=== PATIENT | female | born 1960 | race Two or more races ===

== ENCOUNTER 2018-11-30 13:27 | Inpatient (IN) | payer OTHER ==
[2018-11-30 14:00] VITALS: BMI 36.0
--- NOTE | 2018-11-30 14:08 | PDOC ---
Attending Attestation - HPI HPI: 11/30/18 14:35 58 year old female with past medical history of CHF, epilepsy, prominent psychiatric history, narcotic and benzodiazepine abuse, on methadone (last treated today) who was brought in by ambulance after being found lethargic by family. After her treatment at the methadone clinic, patient supposedly bought unspecified benzodiazepine on the street. Patient was being prescribed benzos by a psychiatrist but her prescription was recently discontinued. Denies any difficulty breathing, loss of consciousness, chest pain, syncope, nausea, vomiting, diarrhea, fever or chills. In the ED, patient is arousable and is requesting detox. She is maintaining airway. - Physicial Exam PE: 11/30/18 14:45 Vitals: Triage Vital signs reviewed General Appearance: no acute distress, lethargic, arousable to pain Head: Atraumatic, normocephalic Neck: Supple;No Nuchal rigidity Cardiac: Regular rate and rhythm, no murmurs, no rubs, no gallops, Lungs: Clear to auscultation bilateral, good air movement bilaterally, Abdomen: Soft, nondistended, normal bowel sounds, nontender to palpation Extremities: Full range of motion to all extremities, no cyanosis, clubbing, or edema Skin: Warm and dry, no rashes or lesions, no petechiae Neuro: Cranial Nerves 2-12 grossly intact, moving all extremities Psych: normal mood, normal affect - Medical Decision Making 11/30/18 14:35 Documentation prepared by Lianne Mi, acting as medical pathology teacher for Jose Francisco Charles MD. <Lianne Mi - Last Filed: 11/30/18 14:44> - Resident Resident Name: Jose Graham - ED Attending Attestation I have performed the following: I have examined & evaluated the patient, The case was reviewed & discussed with the resident, I agree w/resident's findings & plan, Exceptions are as noted - Medical Decision Making 11/30/18 16:34 History and exam consistent with polypharmacy secondary to street use of benzodiazepine. Patient is arousable on examination her head CT is unremarkable her laboratory analysis is notable for thrombocytopenia which appears to be chronic in comparison to previous blood work. She has a arranged at [facility] when she is medically clear and has metabolize appropriately she can be transferred to [facility] care she was also provided with hematology follow-up for further management of her thrombocytopenia. Dr. Reed to reasses patient <Jose Francisco Charles - Last Filed: 11/30/18 16:35>
--- NOTE | 2018-11-30 14:25 | PDOC ---
History of Present Illness - General Chief Complaint: Overdose Stated Complaint: OVERDOSE Time Seen by Provider: 11/30/18 13:46 History Source: Patient, Spouse Exam Limitations: Intoxication - History of Present Illness Initial Comments: Patient is a 58 y/o F w/ PMHx substance abuse disorder, heart failure, epilepsy , psychiatric issues, BIBEMS after being found lethargic. Takes methadone as part of a program, had been receiving benzodiazepenes from a psychiatrist but recently had benzodiazepene prescription discontinued d/t dangerous combination use. Per , attended methadone program this morning and received normal 80mg dose. Some time after, purchased street benzodiazepenes of unknown type and dosage, then passed out and became difficult to arouse when call was placed to EMS. On presentation, vitals are stable, maintaining airway, maintaining normal respiratory rate, maintaining saturation. No signs or report of trauma. Unable to verbalize any complaints. 11/30/18 14:19 Past History - Travel Traveled outside of the country in the last 30 days: No Close contact w/someone who was outside of country & ill: No - Past Medical History Allergies/Adverse Reactions: Allergies Allergy/AdvReac Type Severity Reaction Status Date / Time No Known Allergies Allergy Verified 05/15/13 18:53 Home Medications: Ambulatory Orders Aspirin 81 mg PO DAILY 05/15/13 Insulin Regular, Human [Humulin R -] 8 units SQ DAILY 05/15/13 Furosemide [Lasix] 40 mg PO DAILY 11/30/18 Gabapentin 300 mg PO BID 11/30/18 Levetiracetam 500 mg PO BID 11/30/18 Methadone [Dolophine -] 80 mg PO DAILY 11/30/18 Quetiapine Fumarate [Seroquel] 100 mg PO DAILY 11/30/18 Rifaximin [Xifaxan] 550 mg PO BID 11/30/18 Spironolactone 50 mg PO DAILY 11/30/18 Asthma: Yes Cardiac Disorders: No COPD: No Diabetes: Yes GI Disorders: No Disorders: No HTN: Yes Kidney Stones: No Seizures: Yes - Surgical History Abdominal Surgery: No Appendectomy: No Cardiac Surgery: No Cholecystectomy: No Lung Surgery: No Neurologic Surgery: No Orthopedic Surgery: No - Reproductive History PID: No - Suicide/Smoking/Psychosocial Hx Smoking History: Current some day smoker Have you smoked in the past 12 months: Yes Number of Cigarettes Smoked Daily: 2 Information on smoking cessation initiated: No Hx Alcohol Use: No Drug/Substance Use Hx: Yes (benzo on methadone program) Hx Substance Use Treatment: Yes ([facility]) Review of Systems - Review of Systems Comments:: As per HPI. 11/30/18 14:25 *Physical Exam - Vital Signs Last Vital Signs Temp Pulse Resp BP Pulse Ox 98.1 F 65 18 101/77 100 11/30/18 13:42 11/30/18 13:42 11/30/18 13:42 11/30/18 13:42 11/30/18 13:42 - Physical Exam Comments: Gen: Lethargic, oriented only to name, transiently arousable to noxious stimuli HEENT: NC/AT, PERRLA, pupils of normal size, MMM Neck: supple, no LAD, no JVD CV: RRR no m/r/g Resp: limited compliance with exam, no adventitious sounds appreciated Abd: +bs, soft, NT, ND Ext: 2+ pulses, wwp Neuro: limited exam, squeezes fingers and plantarflexes with 5/5 strength b/l Skin: warm, dry, normal turgor 11/30/18 14:25 Moderate Sedation - Procedure Monitoring Vital Signs: Procedure Monitoring Vital Signs Temperature 98.1 F 11/30/18 13:42 Pulse Rate 65 11/30/18 13:42 Respiratory Rate 18 11/30/18 13:42 Blood Pressure 101/77 11/30/18 13:42 O2 Sat by Pulse Oximetry (%) 100 11/30/18 13:42 ED Treatment Course - LABORATORY CBC & Chemistry Diagram: 11/30/18 14:30 11/30/18 14:30 - RADIOLOGY Radiology Studies Ordered: Category Date Time Status HEAD CT WITHOUT CONTRAST [CT] Stat CT Scan 11/30/18 14:14 Ordered Medical Decision Making - Medical Decision Making Most likely diagnosis is polypharmacy. Will r/o dangerous etiologies including hypoglycemia, intracranial hemorrhage, metabolic derangement with CBC, CMP, Mg, Phos, NCHCT, FSG. Otherwise will observe. 11/30/18 14:29 states she wishes for admission to detox at [facility]. Will contact [facility] to check for available beds. 11/30/18 14:31 Platelets are 35. H/H stable, no signs/symptoms of bleeding. When patient awakes , will discuss heme followup and provide referral upon discharge. 11/30/18 15:24 HCT without acute pathology. reports the Pt was previously a heavy drinker and has been diagnosed with cirrhosis. 11/30/18 16:59 Patient wheezing, ordered duoneb and CXR. Concern for possible aspiration PNA. However she is metabolizing appropriately and is more awake/alert than on presentation. 11/30/18 18:02 Observed pt attempting to eat. Was dribbling food, could not swallow properly. Will wait for further improvement in alertness to re-attempt feed. 11/30/18 20:34 Attempted ambulation. Patient was unsteady on feet, continues to be below mental baseline. Not medically cleared for discharge. Will admit to med/surg. 11/30/18 21:16 CXR will not be read until AM. Will give Unasyn for empiric coverage for aspiration. 11/30/18 21:33 *DC/Admit/Observation/Transfer Diagnosis at time of Disposition: Polypharmacy - Discharge Dispostion Condition at time of disposition: Guarded Decision to Admit order: Yes - Referrals Referrals: Phillip Canela MD [Staff Physician] - - Patient Instructions - Post Discharge Activity
[2018-11-30 14:43] LABS: BASO % 0.3 % (0-2.0); EOS % 6.8 % (0-4.5); HEMATOCRIT 35.1 % (32.4-45.2); LYMPH % 28.3 % (8-40); MCH 29.3 pg (25.7-33.7); MCHC 34.2 g/dl (32.0-36.0); MEAN CELL VOLUME 85.6 fl (80-96); NEUT % 52.6 % (42.8-82.8); RDW 15.1 % (11.6-15.6); WHITE BLOOD COUNT 4.6 K/mm3 (4.0-10.0)
[2018-11-30 15:17] LABS: ALBUMIN 3.4 g/dl (3.4-5.0); ALK PHOS 77 U/L (45-117); ANION GAP 6 MMOL/L (8-16); BILIRUBIN,TOTAL 1.1 mg/dL (0.2-1); BLOOD UREA NITROGEN 17 mg/dL (7-18); CALCIUM 8.7 mg/dL (8.5-10.1); CHLORIDE 104 mmol/L (98-107); CO2 29 mmol/L (21-32); CREATININE 0.8 mg/dL (0.55-1.3); GLUCOSE,RANDOM 78 mg/dL (74-106); MAGNESIUM 2.2 mg/dL (1.8-2.4); POTASSIUM 4.5 mmol/L (3.5-5.1); SGOT/AST 30 U/L (15-37); SGPT/ALT 23 U/L (13-61); SODIUM 139 mmol/L (136-145); TOT PROT 7.3 g/dl (6.4-8.2)
[2018-11-30 15:19] LABS: MEAN PLT VOLUME 10.8 fl (7.5-11.1)
[2018-11-30 15:20] LABS: PLATELET COUNT 35 K/MM3 (134-434)
[2018-11-30] MEDS ORDERED: ALBUTEROL SO4 2.5/IPRATROPIUM 0.5 INH SOL 3 ML VIAL.NEB. NEB ONE (16:50)
[2018-11-30 17:00] LABS: PLATELET ESTIMATE DECREASED
[2018-11-30] MEDS ORDERED: AMPICILLIN NA/SULBACTAM NA 1.5 GM in SODIUM CHLORIDE 100 ML IVPB ONE (21:32)
--- NOTE | 2018-12-01 00:22 | PN ---
Teaching Attending Note Name of Resident: Yumiko Mckeon ATTENDING PHYSICIAN STATEMENT I saw and evaluated the patient. I reviewed the resident's note and discussed the case with the resident. I agree with the resident's findings and plan as documented. SUBJECTIVE: Patient is a 58 year old woman with PMH of CHF, cirrhosis, epilepsy, prominent psychiatric history, narcotic and benzodiazepine abuse, on methadone (last treated today) who was brought in by ambulance after being found lethargic by family. After her treatment at the methadone clinic, patient supposedly bought unspecified benzodiazepine on the street. Patient was being prescribed benzos by a psychiatrist but her prescription was recently discontinued. Denies any difficulty breathing, loss of consciousness, chest pain, syncope, nausea, vomiting, diarrhea, fever or chills. In the ER, patient is arousable and is requesting detox. She is maintaining airway. OBJECTIVE: Lethargic but arousable Vital Signs Period Temp Pulse Resp BP Sys/Hendrix Pulse Ox Last 24 Hr 98.1 F 65 18 101/77 100 HEENT: No Jaundice, eye redness or discharge, PERRLA, EOMI. Normocephalic, atraumatic. External ears are normal and hearing is grossly intact. No nasal discharge. Neck: Supple, nontender. No palpable adenopathy or thyromegaly. No JVD Chest: Good effort. Clear to auscultation and percussion. Heart: Regular. No S3, rub or murmur Abdomen: Not distended, soft, nontender and no HSM. No rebound or guarding. Normoactive bowel sounds. Ext: Peripheral pulses intact. No leg edema. Skin: Warm and dry. No petechiae, rash or ecchymosis. Neuro: Lethargic. Unable to follow commands. Moves all limbs. Oriented to person. Sensation grossly intact in all four extremities and DTR are symmetric. Home Medications Medication Instructions Recorded Aspirin 81 mg PO DAILY 05/15/13 Insulin Regular, Human [Humulin R 8 units SQ DAILY 05/15/13 -] Furosemide [Lasix] 40 mg PO DAILY 11/30/18 Gabapentin 300 mg PO BID 11/30/18 Levetiracetam 500 mg PO BID 11/30/18 Methadone [Dolophine -] 80 mg PO DAILY 11/30/18 Quetiapine Fumarate [Seroquel] 100 mg PO DAILY 11/30/18 Rifaximin [Xifaxan] 550 mg PO BID 11/30/18 Spironolactone 50 mg PO DAILY 11/30/18 Abnormal Lab Results 11/30/18 11/30/18 14:30 14:30 Plt Count 35 L* D Monocytes % 12.0 H Eosinophils % 6.8 H Anion Gap 6 L Total Bilirubin 1.1 H ASSESSMENT AND PLAN: 1. Drug Overdose - Patient with polysubstance abuse history presenting with lethargy likely due to drug overdose. She is unable to tell us all the drugs she took. She got duoneb for SOB in the ER. Will monitor her closely for respiratory compromise, implement neurochecks, aspiration, seizure and fall precuations. Consult the service desk specialist. Consult Poison control. Will get urine toxicology, monitor EKG in view of prolonged QTc, check Keppra level and get ECHO. Aggressive IV hydration being avoided pending ECHO - in view of CHF history. Repeat CXR for possible emerging RLL infiltrate. There is no indication for antibiotics at this time. Hold methadone and treat constipation. [employer] patient about abstaining from illicit drug use and refer to detox upon discharge. Monitor low platelet count - likely due to cirrhosis. 2. Obesity - Will provide patient all the necessary assistance, counseling and positive reinforcement to facilitate weight loss. Consult fast food shift supervisor. 3. DVT prophylaxis - Early ambulation. Platelets too low for heparin or SCDs 4. Advance directives - Full code
--- NOTE | 2018-12-01 01:07 | HP ---
CHIEF COMPLAINT: benzo OD PCP: none HISTORY OF PRESENT ILLNESS: 58 y/o F with PMH substance use disorder (alcohol, cocaine in past, heroin), ? CHF, epilepsy, cirrhosis, depression, Type 2 DM, who presents to the ED who was BIBEMS for lethargy. As per pt and , pt has been enrolled in a methadone program in [place] for the past 10 years. She has most recently been on 80mg, which she received earlier today at her visit. However, once she was leaving the program in [place], she purchased "a lot of Klonopin" as well as multiple other drugs which she could not name. For this reason, she became increasingly lethargy, passed out and was brought to the [facility] ED via ambulance. On arrival, she was hemodynamically stable and sat well in 90's. During this time, pt endorses generalized GARCIA, SOB which she attributes to her asthma, as well as constipation. Denies fever, chills, chest pain or pressure, or changes in urinary function. Of note, pt was recently told by her psychiatrist to avoid taking methadone and benzo's due to dangerous interaction. She has used "large amounts" of heroin for many years via injection, cocaine, "many other drugs", and has drank a pint of liquor/day for the past five years. Unable to further describe d/t lethargy, does not recall last drink. She lives with her of 5-6 months, and ambulates at baseline using a walker. ER course was notable for: (1) neb x 1 (2) unasyn x 1 (3) Recent Travel: denies PAST MEDICAL HISTORY: as above PAST SURGICAL HISTORY: denies Social History: lives with , has 1 child. ambulates with a walker. has been in a methadone program for 10 yrs Smoking: denies Alcohol: pint of liquor/day for the past five years Drugs: "large amounts" of heroin for many years via injection, cocaine, "many other drugs" Family History: denies Allergies No Known Allergies Allergy (Verified 05/15/13 18:53) haldol listed in paperwork - dysphagia HOME MEDICATIONS: Home Medications Medication Instructions Recorded Aspirin 81 mg PO DAILY 05/15/13 Insulin Regular, Human [Humulin R 8 units SQ DAILY 05/15/13 was not with pt at bedside Furosemide [Lasix] 40 mg PO DAILY 11/30/18 Gabapentin 300 mg PO BID 11/30/18 Levetiracetam 500 mg PO BID 11/30/18 Methadone [Dolophine -] likely gets from program 80 mg PO DAILY 11/30/18 Quetiapine Fumarate [Seroquel] 100 mg PO DAILY 11/30/18 Rifaximin [Xifaxan] 550 mg PO BID 11/30/18 Spironolactone ventolin inhaler PRN lactulose 15 ml solution qd (?) verify 50 mg PO DAILY 11/30/18 REVIEW OF SYSTEMS CONSTITUTIONAL: +lethargy Absent: fever, chills, diaphoresis, generalized weakness, malaise, loss of appetite, weight change HEENT: Absent: rhinorrhea, nasal congestion, throat pain, throat swelling, difficulty swallowing, mouth swelling, ear pain, eye pain, visual changes CARDIOVASCULAR: Absent: chest pain, syncope, palpitations, irregular heart rate, lightheadedness , peripheral edema RESPIRATORY: +SOB Absent: cough, shortness of breath, dyspnea with exertion, orthopnea, wheezing, stridor, hemoptysis GASTROINTESTINAL: +constipation Absent: abdominal pain, abdominal distension, nausea, vomiting, diarrhea, constipation, melena, hematochezia GENITOURINARY: Absent: dysuria, frequency, urgency, hesitancy, hematuria, flank pain, genital pain MUSCULOSKELETAL: Absent: myalgia, arthralgia, joint swelling, back pain, neck pain SKIN: Absent: rash, itching, pallor HEMATOLOGIC/IMMUNOLOGIC: Absent: easy bleeding, easy bruising, lymphadenopathy, frequent infections ENDOCRINE: Absent: unexplained weight gain, unexplained weight loss, heat intolerance, cold intolerance NEUROLOGIC: +GARCIA Absent: headache, focal weakness or paresthesias, dizziness, unsteady gait, seizure, mental status changes, bladder or bowel incontinence PSYCHIATRIC: Absent: anxiety, depression, suicidal or homicidal ideation, hallucinations. PHYSICAL EXAMINATION Vital Signs - 24 hr 11/30/18 13:42 Temperature 98.1 F Pulse Rate 65 Respiratory 18 Rate Blood Pressure 101/77 O2 Sat by Pulse 100 Oximetry (%) GENERAL: Lethargic (AAOx1: self), in no acute distress HEAD: Normal with no signs of trauma. EYES: Pupils equal, round and reactive to light, extraocular movements intact, sclera anicteric, conjunctiva clear. EARS, NOSE, THROAT: Ears normal, nares patent, oropharynx clear without exudates. Moist mucous membranes. NECK: Normal range of motion, supple LUNGS: Breath sounds equal, clear to auscultation bilaterally. No wheezes, and no crackles. No accessory muscle use. however poor inspiratory effort HEART: Regular rate and rhythm, normal S1 and S2 without murmur, rub or gallop. ABDOMEN: Soft, nontender, not distended, normoactive bowel sounds, no guarding, no rebound, no masses. LOWER EXTREMITIES: 2+ pt pulses, warm, well-perfused. No calf tenderness. No peripheral edema. NEUROLOGICAL: would not cooperate PSYCHIATRIC: as above SKIN: Warm, dry Laboratory Results - last 24 hr 11/30/18 11/30/18 14:30 14:30 WBC 4.6 RBC 4.10 Hgb 12.0 Hct 35.1 MCV 85.6 MCH 29.3 MCHC 34.2 RDW 15.1 Plt Count 35 L* D MPV 10.8 D Absolute Neuts (auto) 2.4 Neutrophils % 52.6 Lymphocytes % 28.3 Monocytes % 12.0 H Eosinophils % 6.8 H Basophils % 0.3 Nucleated RBC % 0 Platelet Estimate Decreased Sodium 139 Potassium 4.5 Chloride 104 Carbon Dioxide 29 Anion Gap 6 L BUN 17 Creatinine 0.8 Creat Clearance w eGFR > 60 Random Glucose 78 Calcium 8.7 Phosphorus 4.0 Magnesium 2.2 Total Bilirubin 1.1 H AST 30 ALT 23 Alkaline Phosphatase 77 Total Protein 7.[address]: mild vol loss, no acute changes CXR: hilar congestion, possible cephalization of vessels, without effusions. ? developing infiltrate RLL - my read. await official read. EKG: NSR, rate 70bpm, Qtc 475ms, poor quality. without significant ST-T changes ASSESSMENT/PLAN: 58 y/o F with PMH substance use disorder (alcohol, cocaine in past, heroin), ? CHF, epilepsy, cirrhosis, depression, Type 2 DM, who presents to the ED who was BIBEMS for lethargy. #Lethargy likely 2/2 benzo OD -took methadone 80mg today, as well as klonopin and other possible agents. -d/w poison control. recommends serial EKGs for qtc prolongation, will repeat at 6AM. currently 475ms -f/u utox, acetaminophen level to check for co-ingestions -ABG wnl -hold methadone, seroquel d/t qtc -frequent neuro and respiratory checks q2h. -elevate HOB to prevent aspiration -detox consult: Dr. Resendiz #?CHF -in hx, however pt unable to confirm -c/w lasix, however carefully monitor hemodynamics -f/u ECHO #Possible pneumonitis -may be 2/2 aspiration, however still unclear. possible RLL infiltrate developing -received unasyn in ED. will hold abx for now and reassess w/ repeat CXR in AM -elevate HOB #Cirrhosis 2/2 alcohol abuse -c/w rifaximin, aldactone -started on thiamine, folic -unknown when last drink, monitor for changes in status, CIWA. if needed can start on librium protocol -continue outpt f/u #thrombocytopenia likely 2/2 alcohol abuse -pt with cirrhosis -hold a/c now, continue to monitor #epilepsy -c/w keppra. f/u level -sz precautions #type 2 DM -f/u A1c -ISS, BGM ACHS #F/E/N no IVF, reassess after ECHO done continue to follow lytes NPO, reassess in AM #PPX DVT: SCD's. no a/c at this time d/t thrombocytopenia #Dispo med-surg Visit type - Emergency Visit Emergency Visit: Yes ED Registration Date: 11/30/18 Care time: The patient presented to the Emergency Department on the above date and was hospitalized for further evaluation of their emergent condition. - New Patient This patient is new to me today: Yes Date on this admission: 12/01/18 - Critical Care Critical Care patient: No
[2018-12-01] MEDS ORDERED: ALBUTEROL SO4 0.083% IH SOL 2.5 MG/3 ML VIAL.NEB. NEB PRN (01:14)
[2018-12-01 06:01] LABS: BASO % 0.3 % (0-2.0); HEMATOCRIT 32.8 % (32.4-45.2); HEMOGLOBIN 11.2 GM/dL (10.7-15.3); LYMPH % 32.1 % (8-40); MCH 28.8 pg (25.7-33.7); MEAN CELL VOLUME 84.7 fl (80-96); MEAN PLT VOLUME 11.4 fl (7.5-11.1); MONO % 13.8 % (3.8-10.2); NEUT % 45.8 % (42.8-82.8); PLATELET COUNT 32 K/MM3 (134-434); RBC 3.87 M/mm3 (3.60-5.2); RDW 14.8 % (11.6-15.6); WHITE BLOOD COUNT 3.3 K/mm3 (4.0-10.0)
[2018-12-01 06:18] LABS: ALBUMIN 3.2 g/dl (3.4-5.0); ALK PHOS 71 U/L (45-117); ANION GAP 5 MMOL/L (8-16); BILIRUBIN,TOTAL 0.9 mg/dL (0.2-1); BLOOD UREA NITROGEN 17 mg/dL (7-18); CALCIUM 8.1 mg/dL (8.5-10.1); CHLORIDE 102 mmol/L (98-107); CO2 30 mmol/L (21-32); CREATININE 0.8 mg/dL (0.55-1.3); GLUCOSE,RANDOM 107 mg/dL (74-106); POTASSIUM 3.9 mmol/L (3.5-5.1); SGOT/AST 27 U/L (15-37); SGPT/ALT 20 U/L (13-61); SODIUM 137 mmol/L (136-145); TOT PROT 6.8 g/dl (6.4-8.2)
[2018-12-01 06:20] VITALS: TEMP 98.2
[2018-12-01 06:22] LABS: ARTERIAL BLD GAS O2 SATURATION 96.5 % (90-98.9); ARTERIAL BLOOD GAS BASE EXCESS 2.3 meq/l (-2-2); ARTERIAL BLOOD GAS PCO2 45.1 mmHg (35-45); ARTERIAL BLOOD GAS PO2 90.7 mmHg (80-100)
[2018-12-01 06:45] LABS: MAGNESIUM 1.8 mg/dL (1.8-2.4); PHOSPHOROUS 3.8 mg/dL (2.5-4.9)
[2018-12-01] MEDS: INSULIN SLIDING SCALE (NOVOLOG) 1 VIAL SQ SCH ×2 (08:16→12:05)
[2018-12-01] MEDS ORDERED: FOLIC ACID 5 MG/1 ML SQ SCH (10:00)
[2018-12-01] MEDS ORDERED: FUROSEMIDE 40 MG TABLET (FP) PO SCH ×2 (10:00)
[2018-12-01] MEDS ORDERED: GABAPENTIN 300 MG CAPSULE (FP) PO SCH (10:00)
[2018-12-01] MEDS ORDERED: RIFAXIMIN 550 MG TABLET (UD) PO SCH (10:00)
[2018-12-01] MEDS ORDERED: levETIRAcetam 500 MG TABLET (FP) PO SCH (10:00)
[2018-12-01] MEDS ORDERED: ASPIRIN 81 MG CHEWABLE TABLETS PO SCH (10:00)
[2018-12-01] MEDS ORDERED: THIAMINE HCL 200 MG/2 ML VIAL IVPB SCH (10:00)
[2018-12-01] MEDS ORDERED: SPIRONOLACTONE 25 MG TABLET (FP) PO SCH (10:00)
--- NOTE | 2018-12-01 11:14 | ECHO ---
Version: 1 Name: RAMÓN LI Exam: Adult Echocardiogram Study Date: 12/01/2018, 9:35 AM Age: 58 Years Left Ventricle The left ventricular ejection fraction is normal. Ejection Fraction = 50-55%. Right Ventricle The right ventricle is normal in size and function. Atria The left atrium is mildly dilated. Mitral Valve The mitral valve is normal in structure and function. There is no mitral valve stenosis. There is mi ld mitral regurgitation. Tricuspid Valve The tricuspid valve is not well visualized, but is grossly normal. There is mild tricuspid regurgita tion. Aortic Valve The aortic valve opens well. No hemodynamically significant valvular aortic stenosis. Mild aortic regurgitation. Pulmonic Valve The pulmonic valve is not well seen, but is grossly normal. There is no pulmonic valvular stenosis. Great Vessels The aortic root is normal size. Pericardium/Pleura There is no pericardial effusion. Summary Statements The left ventricular ejection fraction is normal. Ejection Fraction = 50-55%. The left atrium is mildly dilated. There is mild mitral regurgitation. There is mild tricuspid regurgitation. Mild aortic regurgitation. MD Jara *Asuncion 12/01/2018, 11:14 AM Ordering Physician: Yumiko Mckeon Performed By: Mya Arriaga
--- NOTE | 2018-12-01 11:50 | EKG ---
Test Reason : Blood Pressure : / mmHG Vent. Rate : 074 BPM Atrial Rate : 074 BPM P-R Int : 174 ms QRS Dur : 086 ms QT Int : 464 ms P-R-T Axes : 054 003 040 degrees QTc Int : 515 ms NORMAL SINUS RHYTHM POSSIBLE ANTERIOR INFARCT , AGE UNDETERMINED ABNORMAL ECG WHEN COMPARED WITH ECG OF 30-NOV-2018 23:21, NO SIGNIFICANT CHANGE WAS FOUND Confirmed by DEMETRIUS ALEJO, ROEL ([id number]) on 12/01/2018 11:50:02 AM Referred By: Confirmed By:ROEL ROMO MD
--- NOTE | 2018-12-01 11:56 | EKG ---
Test Reason : Blood Pressure : / mmHG Vent. Rate : 070 BPM Atrial Rate : 070 BPM P-R Int : 170 ms QRS Dur : 086 ms QT Int : 440 ms P-R-T Axes : 037 003 012 degrees QTc Int : 475 ms POOR DATA QUALITY, INTERPRETATION MAY BE ADVERSELY AFFECTED NORMAL SINUS RHYTHM NONSPECIFIC T WAVE ABNORMALITY ABNORMAL ECG NO PREVIOUS ECGS AVAILABLE Confirmed by DEMETRIUS ALEJO, ROEL ([id number]) on 12/01/2018 11:55:48 AM Referred By: Confirmed By:ROEL ROMO MD
[2018-12-01] MEDS ORDERED: INSULIN (NOVOLOG) ASPART 100 UNITS/ML 10ML VIAL ONE (12:04)
[2018-12-01] MEDS ORDERED: MAGNESIUM SULF 50% (8.12 MEQ/2 ML-1 GM VIAL) IVPB ONE (12:40)
[2018-12-01] MEDS ORDERED: MAGNESIUM 1GM/D5W - 1 GM/100 ML IVPB IVPB ONE (12:46)
[2018-12-01 14:57] VITALS: BP 121/79; PULSE 105
--- NOTE | 2018-12-01 15:38 | DS ---
Physical Exam: SUBJECTIVE: Patient seen and examined this AM. She states that she is concerned of withdrawing from her methadone if she does not get it soon. OBJECTIVE: Vital Signs Period Temp Pulse Resp BP Sys/Hendrix Pulse Ox Last 24 Hr 98.0 F-98.2 F 68-105 18-18 105-121/72-79 96-100 PHYSICAL EXAM GENERAL: A&O, no acute distress HEAD: Normocephalic, atraumatic. EYES: PERRL, no scleral icterus EARS, NOSE, THROAT: oropharynx clear without exudates. Moist mucous membranes. NECK: supple without lymphadenopathy LUNGS: CTA b/l, no crackles or wheezes HEART: Regular rate and rhythm, normal S1 and S2 without murmur ABDOMEN: Soft, nontender to palpation, normoactive bowel sounds NEURO: slurring speech and drowsy on initial exam but improved later in day EXTREMITIES: warm, well-perfused. No peripheral edema. PSYCHIATRIC: Anxious LABS Laboratory Results - last 24 hr 11/30/18 12/01/18 12/01/18 14:30 05:15 05:15 WBC 3.3 L RBC 3.87 Hgb 11.2 Hct 32.8 MCV 84.7 MCH 28.8 MCHC 34.0 RDW 14.8 Plt Count 32 L* MPV 11.4 H Absolute Neuts (auto) 1.5 Neutrophils % 45.8 Lymphocytes % 32.1 Monocytes % 13.8 H Eosinophils % 8.0 H Basophils % 0.3 Nucleated RBC % 0 Platelet Estimate Decreased Anticoagulation Therapy Puncture Site ABG pH ABG pCO2 at Pt Temp ABG pO2 at Pt Temp ABG HCO3 ABG O2 Sat (Measured) ABG O2 Content ABG Base Excess Cesar Test O2 Delivery Device Oxygen Flow Rate Vent Mode Vent Rate Mechanical Rate Pressure Support Vent Sodium 137 Potassium 3.9 Chloride 102 Carbon Dioxide 30 Anion Gap 5 L BUN 17 Creatinine 0.8 Creat Clearance w eGFR > 60 POC Glucometer Random Glucose 107 H Hemoglobin A1c % Calcium 8.1 L Phosphorus Magnesium Total Bilirubin 0.9 AST 27 ALT 20 Alkaline Phosphatase 71 Total Protein 6.8 Albumin 3.2 L Salicylates Acetaminophen 12/01/18 12/01/18 12/01/18 05:57 05:57 05:57 WBC RBC Hgb Hct MCV MCH MCHC RDW Plt Count MPV Absolute Neuts (auto) Neutrophils % Lymphocytes % Monocytes % Eosinophils % Basophils % Nucleated RBC % Platelet Estimate Anticoagulation Therapy Puncture Site ABG pH ABG pCO2 at Pt Temp ABG pO2 at Pt Temp ABG HCO3 ABG O2 Sat (Measured) ABG O2 Content ABG Base Excess Cesar Test O2 Delivery Device Oxygen Flow Rate Vent Mode Vent Rate Mechanical Rate Pressure Support Vent Sodium Potassium Chloride Carbon Dioxide Anion Gap BUN Creatinine Creat Clearance w eGFR POC Glucometer Random Glucose Hemoglobin A1c % 5.6 Calcium Phosphorus 3.8 Magnesium 1.8 Total Bilirubin AST ALT Alkaline Phosphatase Total Protein Albumin Salicylates Acetaminophen < 2.0 L 12/01/18 12/01/18 12/01/18 05:57 06:00 08:14 WBC RBC Hgb Hct MCV MCH MCHC RDW Plt Count MPV Absolute Neuts (auto) Neutrophils % Lymphocytes % Monocytes % Eosinophils % Basophils % Nucleated RBC % Platelet Estimate Anticoagulation Therapy No Result Required. Puncture Site Right radial ABG pH 7.40 ABG pCO2 at Pt Temp 45.1 H ABG pO2 at Pt Temp 90.7 ABG HCO3 27.1 H ABG O2 Sat (Measured) 96.5 ABG O2 Content 16.4 ABG Base Excess 2.3 H Cesar Test No Result Required. O2 Delivery Device Room air Oxygen Flow Rate 21% Vent Mode No Result Required. Vent Rate No Result Required. Mechanical Rate No Result Required. Pressure Support Vent No Result Required. Sodium Potassium Chloride Carbon Dioxide Anion Gap BUN Creatinine Creat Clearance w eGFR POC Glucometer [phone] Random Glucose Hemoglobin A1c % Calcium Phosphorus Magnesium Total Bilirubin AST ALT Alkaline Phosphatase Total Protein Albumin Salicylates < 1.7 L Acetaminophen 12/01/18 11:57 WBC RBC Hgb Hct MCV MCH MCHC RDW Plt Count MPV Absolute Neuts (auto) Neutrophils % Lymphocytes % Monocytes % Eosinophils % Basophils % Nucleated RBC % Platelet Estimate Anticoagulation Therapy Puncture Site ABG pH ABG pCO2 at Pt Temp ABG pO2 at Pt Temp ABG HCO3 ABG O2 Sat (Measured) ABG O2 Content ABG Base Excess Cesar Test O2 Delivery Device Oxygen Flow Rate Vent Mode Vent Rate Mechanical Rate Pressure Support Vent Sodium Potassium Chloride Carbon Dioxide Anion Gap BUN Creatinine Creat Clearance w eGFR POC Glucometer [phone] Random Glucose Hemoglobin A1c % Calcium Phosphorus Magnesium Total Bilirubin AST ALT Alkaline Phosphatase Total Protein Albumin Salicylates Acetaminophen HOSPITAL COURSE: Date of Admission:11/30/18 Date of Discharge: 02/01/19 HPI On Admission: 58 y/o F with PMH substance use disorder (alcohol, cocaine in past, heroin), ? CHF, epilepsy, cirrhosis, depression, Type 2 DM, who presents to the ED who was BIBEMS for lethargy. As per pt and , pt has been enrolled in a methadone program in [place] for the past 10 years. She has most recently been on 80mg, which she received earlier today at her visit. However, once she was leaving the program in [place], she purchased "a lot of Klonopin" as well as multiple other drugs which she could not name. For this reason, she became increasingly lethargy, passed out and was brought to the [facility] ED via ambulance. On arrival, she was hemodynamically stable and sat well in 90's. During this time, pt endorses generalized GARCIA, SOB which she attributes to her asthma, as well as constipation. Denies fever, chills, chest pain or pressure, or changes in urinary function. Of note, pt was recently told by her psychiatrist to avoid taking methadone and benzo's due to dangerous interaction. She has used "large amounts" of heroin for many years via injection, cocaine, "many other drugs", and has drank a pint of liquor/day for the past five years. Unable to further describe d/t lethargy, does not recall last drink. She lives with her of 5-6 months, and ambulates at baseline using a walker. Hospital Course: She was monitored overnight. Poison control was contacted and recommended repeated EKGs and airway monitoring. QTc was monitored and increased from 475 to 515. She was given MgSulfate 1 gm. Repeat EKG was ordered prior to discharge which revealed a stabilizing QTc at 514. It is highly recommended that she attempt to be weaned off of methadone during her detox at [facility]. Pt was deemed medically safe for discharge with recommendations to follow up QTc especially if methadone is continued, she was accepted to [facility] detox for further detox and management of her care. Minutes to complete discharge: 35 Discharge Summary Reason For Visit: POLYPHARMACY Current Active Problems Polypharmacy (Acute) Condition: Stable - Instructions Diet, Activity, Other Instructions: You were admitted for overdosing on Xanax and Klonopin. You were very lethargic , drowsy and slurring words. You were monitored overnight and your methadone was held to prevent further drowsiness until you improved. You were found to have an EKG abnormality (prolonged QTc) which made giving methadone more concerning as it could cause an abnormal very serious heart rhythm which could lead to . Addiction medicine was consulted for further recommendations and has accepted you to [facility] at this time. You were agreeable and are being discharged with transport over to that facility. While at detox, due to your prolonged QTc, you should be weaned off Methadone and possibly put on Suboxone at the detox physician's discretion. You should slowly be weaned off your Seroquel dose as this can also lead to your prolonged QTc You should continue all of your other home meds as they are appropriately prescribed. You should discontinue taking medications purchased on the street that were not prescribed by a physician as this can be very dangerous and lead to . You should follow up with your primary care physician in one week following discharge from the hospital. If you have any concerning or severe symptoms, you should be evaluated by your physician or return to the emergency department. Referrals: Phillip Canela MD [Staff Physician] - Disposition: TRANSFER ACUTE CARE/OTHER HOSP - Home Medications Comprehensive Discharge Medication List: Ambulatory Orders Aspirin 81 mg PO DAILY 05/15/13 Insulin Regular, Human [Humulin R -] 8 units SQ DAILY 05/15/13 Furosemide [Lasix] 40 mg PO DAILY 11/30/18 Gabapentin 300 mg PO BID 11/30/18 Levetiracetam 500 mg PO BID 11/30/18 Methadone [Dolophine -] 80 mg PO DAILY 11/30/18 Quetiapine Fumarate [Seroquel] 100 mg PO DAILY 11/30/18 Rifaximin [Xifaxan] 550 mg PO BID 11/30/18 Spironolactone 50 mg PO DAILY 11/30/18 This patient is new to me today: Yes Date on this admission: 12/01/18 Emergency Visit: Yes ED Registration Date: 11/30/18 Care time: The patient presented to the Emergency Department on the above date and was hospitalized for further evaluation of their emergent condition. Critical Care patient: No - Discharge Referral Referred to [facility] Med P.C.: No
--- NOTE | 2018-12-01 17:37 | PN ---
Teaching Attending Note Name of Resident: Sridhar Chin ATTENDING PHYSICIAN STATEMENT I saw and evaluated the patient. I reviewed the resident's note and discussed the case with the resident. I agree with the resident's findings and plan as documented. SUBJECTIVE: Feels okay, less drowsy, wants rehab. Denies any chest pain/palps/ abdominal pain/nausea/vomiting/fever/chills. OBJECTIVE: Afebrile, Hemodynamically Stable. Last Vital Signs Temp Pulse Resp BP Pulse Ox 98.2 F 105 H 18 121/79 96 12/01/18 04:15 12/01/18 14:55 12/01/18 14:55 12/01/18 14:55 12/01/18 14:55 Neuro - AAO x 3, Slightly drowsy but rousable. CIRA. EOMI. Tone/Power normal all 4 extremities. HEENT - Atraumatic, Normocephalic. Heart -S1, S2, RRR Lungs - clear to auscultation. Abdomen - Soft, non-tender. Bowel Sounds normal. Extremities - no calf swelling/tenderness. Laboratory Results - last 24 hr 12/01/18 12/01/18 12/01/18 05:15 05:15 05:57 WBC 3.3 L RBC 3.87 Hgb 11.2 Hct 32.8 MCV 84.7 MCH 28.8 MCHC 34.0 RDW 14.8 Plt Count 32 L* MPV 11.4 H Absolute Neuts (auto) 1.5 Neutrophils % 45.8 Lymphocytes % 32.1 Monocytes % 13.8 H Eosinophils % 8.0 H Basophils % 0.3 Nucleated RBC % 0 Anticoagulation Therapy Puncture Site ABG pH ABG pCO2 at Pt Temp ABG pO2 at Pt Temp ABG HCO3 ABG O2 Sat (Measured) ABG O2 Content ABG Base Excess Cesar Test O2 Delivery Device Oxygen Flow Rate Vent Mode Vent Rate Mechanical Rate Pressure Support Vent Sodium 137 Potassium 3.9 Chloride 102 Carbon Dioxide 30 Anion Gap 5 L BUN 17 Creatinine 0.8 Creat Clearance w eGFR > 60 POC Glucometer Random Glucose 107 H Hemoglobin A1c % Calcium 8.1 L Phosphorus 3.8 Magnesium 1.8 Total Bilirubin 0.9 AST 27 ALT 20 Alkaline Phosphatase 71 Total Protein 6.8 Albumin 3.2 L Salicylates Acetaminophen 12/01/18 12/01/18 12/01/18 05:57 05:57 05:57 WBC RBC Hgb Hct MCV MCH MCHC RDW Plt Count MPV Absolute Neuts (auto) Neutrophils % Lymphocytes % Monocytes % Eosinophils % Basophils % Nucleated RBC % Anticoagulation Therapy Puncture Site ABG pH ABG pCO2 at Pt Temp ABG pO2 at Pt Temp ABG HCO3 ABG O2 Sat (Measured) ABG O2 Content ABG Base Excess Ceasr Test O2 Delivery Device Oxygen Flow Rate Vent Mode Vent Rate Mechanical Rate Pressure Support Vent Sodium Potassium Chloride Carbon Dioxide Anion Gap BUN Creatinine Creat Clearance w eGFR POC Glucometer Random Glucose Hemoglobin A1c % 5.6 Calcium Phosphorus Magnesium Total Bilirubin AST ALT Alkaline Phosphatase Total Protein Albumin Salicylates < 1.7 L Acetaminophen < 2.0 L 12/01/18 12/01/18 12/01/18 06:00 08:14 11:57 WBC RBC Hgb Hct MCV MCH MCHC RDW Plt Count MPV Absolute Neuts (auto) Neutrophils % Lymphocytes % Monocytes % Eosinophils % Basophils % Nucleated RBC % Anticoagulation Therapy No Result Required. Puncture Site Right radial ABG pH 7.40 ABG pCO2 at Pt Temp 45.1 H ABG pO2 at Pt Temp 90.7 ABG HCO3 27.1 H ABG O2 Sat (Measured) 96.5 ABG O2 Content 16.4 ABG Base Excess 2.3 H Cesar Test No Result Required. O2 Delivery Device Room air Oxygen Flow Rate 21% Vent Mode No Result Required. Vent Rate No Result Required. Mechanical Rate No Result Required. Pressure Support Vent No Result Required. Sodium Potassium Chloride Carbon Dioxide Anion Gap BUN Creatinine Creat Clearance w eGFR POC Glucometer [phone] Random Glucose Hemoglobin A1c % Calcium Phosphorus Magnesium Total Bilirubin AST ALT Alkaline Phosphatase Total Protein Albumin Salicylates Acetaminophen Current Medications Generic Name Dose Route Start Last Admin Trade Name Freq PRN Reason Stop Dose Admin Albuterol Sulfate 1 amp 12/01/18 01:14 Ventolin 0.083% Nebulizer Soln - NEB Q4H PRN SHORT OF BREATH/WHEEZING Aspirin 81 mg 12/01/18 10:00 12/01/18 10:47 Asa - PO 81 mg DAILY CJ Administration Folic Acid 1 mg 12/01/18 10:00 12/01/18 10:47 Folic Acid Injection - SQ 1 mg DAILY CJ Administration Furosemide 40 mg 12/01/18 10:00 12/01/18 10:48 Lasix - PO 40 mg DAILY CJ Administration Gabapentin 300 mg 12/01/18 10:00 12/01/18 10:48 Neurontin - PO 300 mg BID CJ Administration Insulin Aspart 1 vial 12/01/18 07:00 12/01/18 12:05 Novolog Vial Sliding Scale - SQ 2 unit ACHS CJ Administration Protocol Levetiracetam 500 mg 12/01/18 10:00 12/01/18 10:48 Keppra - PO 500 mg BID CJ Administration Rifaximin 550 mg 12/01/18 10:00 12/01/18 10:48 Xifaxan - PO 550 mg BID CJ Administration Spironolactone 50 mg 12/01/18 10:00 12/01/18 10:47 Aldactone - PO 50 mg DAILY CJ Administration Thiamine HCl 100 mg 12/01/18 10:00 12/01/18 10:48 Vitamin B1 Injection - IVPB 100 mg DAILY CJ Administration Home Medications Medication Instructions Recorded Aspirin 81 mg PO DAILY 05/15/13 Insulin Regular, Human [Humulin R 8 units SQ DAILY 05/15/13 -] Furosemide [Lasix] 40 mg PO DAILY 11/30/18 Gabapentin 300 mg PO BID 11/30/18 Levetiracetam 500 mg PO BID 11/30/18 Methadone [Dolophine -] 80 mg PO DAILY 11/30/18 Quetiapine Fumarate [Seroquel] 100 mg PO DAILY 11/30/18 Rifaximin [Xifaxan] 550 mg PO BID 11/30/18 Spironolactone 50 mg PO DAILY 11/30/18 ASSESSMENT/PLAN: 58 year old female with history of CHF, Cirrhosis, Epilepsy, Polysubstance abuse (ex-heroin, on Methadone/Benzodiazepines) BIBEMS after being found lethargic by family members. Patient admits to taking Xanax 'sticks' which she bought on the street. No chest pain/palpitations/dyspnea/cough/sputum/abdominal pain/nausea/vomiting. 1. Acute Toxic Encephalopathy sec to unprescribed Benzodiazepine use. More awake, alert, oriented. Maintaining airway, tolerating oral intake. Expressed wishes to attend detox facility. QTc prolonged but stable. Recommend weaning off Methadone and trying Suboxone, as well as weaning down Seroquel. 2. History of Polysubstance Abuse - on Methadone Recommendations as above. Case discussed with Addiction Medicine and recommendation for patient to be transferred to [facility] for Detox. 3. Chronic Diastolic CHF Continue Lasix at home dose. 4. Thrombocytopenia secondary to Cirrhosis of Liver No evidence of Bleeding/bruising. Continue Rifaximin +/- Lactulose, and Lasix/Spironolactone. To follow with GI as out-patient. 5. Seizure Disorder - Continue Keppra. 6. DM 2 with Neuropathy - on Insulin at home - to continue on sliding scale and Gabapentin. DVT Px -SCDs. Heparin held due to Thrombocytopenia.
--- NOTE | 2018-12-02 16:42 | EKG ---
Test Reason : Blood Pressure : / mmHG Vent. Rate : 093 BPM Atrial Rate : 093 BPM P-R Int : 166 ms QRS Dur : 086 ms QT Int : 414 ms P-R-T Axes : 043 -04 030 degrees QTc Int : 514 ms NORMAL SINUS RHYTHM POSSIBLE LEFT ATRIAL ENLARGEMENT PROLONGED QT ABNORMAL ECG WHEN COMPARED WITH ECG OF 01-DEC-2018 02:00, NO SIGNIFICANT CHANGE WAS FOUND Confirmed by Jennie Olivares ([id number]) on 12/02/2018 4:42:10 PM Referred By: Confirmed By:Jennie Olivares
== END 2018-12-01 17:45 | disposition short-term general hospital (02) | DRG 812 ==
LOC: JER 13:27 → JERBED 23:00
PROVIDERS: ADMIT Internal Medicine
DX: T42.4X1A Poisoning by benzodiazepines, accidental (unintentional), initial encounter (principal); Y92.89 Other specified places as the place of occurrence of the external cause; G93.41 Metabolic encephalopathy; I50.32 Chronic diastolic (congestive) heart failure; D69.6 Thrombocytopenia, unspecified; G40.909 Epilepsy, unspecified, not intractable, without status epilepticus; E11.40 Type 2 diabetes mellitus with diabetic neuropathy, unspecified; E66.9 Obesity, unspecified; Z68.36 Body mass index [BMI] 36.0-36.9, adult; F11.20 Opioid dependence, uncomplicated; F32.9 Major depressive disorder, single episode, unspecified; J69.0 Pneumonitis due to inhalation of food and vomit; F10.10 Alcohol abuse, uncomplicated; K70.30 Alcoholic cirrhosis of liver without ascites
CPT/HCPCS: 36415; 36600; 70450-TC; 71045-TC-FY; 71046-TC-FY; 80053; 80177; 80307; 82803; 82962; 83036; 83735; 84100; 85025; 93005; 93010; 93306-TC; 99285-25

== ENCOUNTER 2018-12-01 23:20 | Inpatient (IN) | payer OTHER ==
--- NOTE | 2018-12-01 23:49 | HP ---
"COWS - Scale Resting Pulse: 1= WA 81-100 Sweatin=Flushed/Facial Moisture Restless Observation: 1= Difficult to Sit Still Pupil Size: 2= Moderately Dilated (Pupils = 6 mm) Bone or Joint Aches: 1= Mild Discomfort Runny Nose/ Eye Tearin= Nasal Congestion GI Upset > 30mins: 2= Nausea/Diarrhea Tremor Observation: 1= Tremor [place], Not Seen Yawning Observation: 0= None Anxiety or Irritability: 1=Feels Anxious/Irritable Goose Flesh Skin: 0=Smooth Skin COWS Score: 12 (Patient missed Methadone dose and is having withdrawal) CIWA Score - Admission Criteria OASAS Guidelines: Admission for Medically Managed Detox: Requires at least one of the followin. CIWA greater than 12 2. Seizures within the past 24 hours 3. Delirium tremens within the past 24 hours 4. Hallucinations within the past 24 hours 5. Acute intervention needed for co occurring medical disorder 6. Acute intervention needed for co occurring psychiatric disorder 7. Severe withdrawal that cannot be handled at a lower level of care (continued vomiting, continued diarrhea, abnormal vital signs) requiring intravenous medication and/or fluids 8. Admission ROS [facility] Chief Complaint: I need rehab. Recent blackout. Allergies/Adverse Reactions: Allergies Allergy/AdvReac Type Severity Reaction Status Date / Time haloperidol [From Haldol] AdvReac Verified 12/01/18 01:10 History of Present Illness: Presented to [facility] on 11/30/18 but unable to be interviewed because of extreme lethargy and was sent to [facility] ED for mitra;uation. Patient was evaluated and treated in ED and returned to [facility] for admission today. Patient has not had a prescription for benzo's in over a year, based on PDMP. Has been using illicit xanax until a few days ago. I took some stuff, I thought was Xanax or klonopin that almost killed me. Urine toxicology positive only for Methadone. Patient being admitted to rehab for early anxiolytic remission Hx opiate use disorder. Denies recent opiate relapse. States on [facility] Current methadone dose is 80 mg. Last medicated on 11/29/18. Needs dose verification. Patient missed Methadone dose and is having withdrawal symptoms (COWS =12) Will give a 'Once' dose of methadone 20 mg until dose is verified in am, then patient can start regularly prescribed dose. 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 States has not f/u w/ liver Dr. in about one year. Will hold Rifaximin and lactulose until labs reviewed (LFT's and AMM) Seizure disorder - on meds Hx: Depression: Denies current thoughts of harming self or others. Search Terms: Safia Arroyo, 1960 Search Date: 12/01/2018 11:32:45 PM The Drug Utilization Report below displays all of the controlled substance prescriptions, if any, that your patient has filled in the last twelve months. The information displayed on this report is compiled from pharmacy submissions to the Department, and accurately reflects the information as submitted by the pharmacies. This report was requested by: Shira Funk | Reference #: [id number] Others' Prescriptions Patient Name: Safia Arroyo Date: 1960 Address: [address] [place] [address] Sex: Female Rx Written Rx Dispensed Drug Quantity Days Supply Prescriber Name 08/26/2018 08/29/2018 zolpidem tartrate 5 mg tablet 30 30 Hollie Gallegos 06/01/2018 06/01/2018 zolpidem tartrate 5 mg tablet 15 15 Tonya Mohr D 04/08/2018 04/08/2018 zolpidem tartrate 5 mg tablet 30 30 Hollie Gallegos 02/11/2018 02/11/2018 zolpidem tartrate 5 mg tablet 30 30 Hollie Gallegos Patient Name: Safia Arroyo Date: 1960 Address: [address] [place] [address] Sex: Female Rx Written Rx Dispensed Drug Quantity Days Supply Prescriber Name 06/24/2018 06/30/2018 zolpidem tartrate 5 mg tablet 30 30 Hollie Gallegos Exam Limitations: No Limitations - Ebola screening Have you traveled outside of the country in the last 21 days: No (N) Have you had contact with anyone from an Ebola affected area: No Do you have a fever: No - Review of Systems Constitutional: Chills, Diaphoresis, Changes in sleep (Difficulty falling and staying asleep) EENT: reports: Dental Problems (Missing teeth) Respiratory: reports: Shortness of Breath Cardiac: reports: Irregular Heart Rate, Other (Murmur) GI: reports: Blood Streaked Bowels (States blood was in stool earlier), Diarrhea (Worse than usual.), Nausea, Vomiting : reports: No Symptoms Reported Musculoskeletal: reports: Back Pain (Chronic LBP since 2016. States occurred when fell. Pain is achy. Pain is a '9' states increased r/t no methadone.) Integumentary: reports: No Symptoms Reported Neuro: reports: Numbness (Numbness in feet and hands), Seizure, Unsteady Gait, Other (face droops r/t stroke) Endocrine: reports: No Symptoms Reported Hematology: reports: No Symptoms Reported Psychiatric: reports: Judgement Intact, Orientated x3 (Unsure of exact date/ month. Knows day of week, year,), Agitated, Anxious, Depressed (Denies thoughts of harming self or others) Patient History - Patient Medical History Hx Asthma: Yes Hx Chronic Obstructive Pulmonary Disease (COPD): No Hx Cardiac Disorders: No Hx Hypertension: Yes (on medications) HX Cerebrovascular Accident: Yes Hx Seizures: Yes Hx Diabetes: No Hx Gastrointestinal Disorders: No Hx Liver Disease: Yes (Hx Hep C) Hx Genitourinary Disorders: No Hx Sexually Transmitted Disorders: Yes (hx of gonorrhea) Hx Renal Disease (ESRD): No Hx Hepatitis C: Yes Hx Depression: Yes Hx Suicide Attempt: No Hx Schizophrenia: No - Patient Surgical History Past Surgical History: No Hx Neurologic Surgery: No Hx Cataract Extraction: No Hx Cardiac Surgery: No Hx Lung Surgery: No Hx Breast Surgery: No Hx Breast Biopsy: No Hx Abdominal Surgery: No Hx Appendectomy: No Hx Cholecystectomy: No Hx Genitourinary Surgery: No Hx Section: No Hx Orthopedic Surgery: No Anesthesia Reaction: No - PPD History Previous Implant?: Yes Documented Results: Negative w/o proof Date: 05/18/13 PPD to be Administered?: Yes - Smoking Cessation Smoking history: Current some day smoker Have you smoked in the past 12 months: Yes Aproximately how many cigarettes per day: 2 Hx Chewing Tobacco Use: No Initiated information on smoking cessation: Yes 'Breaking Loose' booklet given: 12/01/18 - Substance & Tx. History Hx Substance Use: Yes Substance Use Type: Heroin Hx Substance Use Treatment: Yes (Currently on MMTP - ) Admission Physical Exam [facility] - Physical General Appearance: Yes: Appropriately Dressed, Mild Distress, Moderate Distress , Tremorous, Sweating, Anxious HEENTM: Yes: EOMI, Hearing grossly Normal, Normocephalic, SOL (Pupils = 6 mm), Rhinorrhea Respiratory: Yes: No Respiratory Distress, Wheezing (Mild inspiratory wheeze) Neck: Yes: No masses,lesions,Nodules, Supple Breast: Yes: Breast Exam Deferred Cardiology: Yes: Regular Rhythm, Regular Rate, S1, S2, Murmur Abdominal: Yes: Non Tender, Soft, Increased Bowel Sounds, Protuberent ( Increased abdominal adiposity) Genitourinary: Yes: Within Normal Limits Back: Yes: Normal Inspection (FROM spine. Patient able to bend.) Musculoskeletal: Yes: full range of Motion (Patient able to bend.), Other (Gait steady w/ use of walker) Extremities: Yes: Normal Capillary Refill Neurological: Yes: insurance case manager II-XII NML intact, Alert, Motor Strength 5/5, Facial Droop ((L) facial palsy) Integumentary: Yes: Normal Color, Dry, Warm, Diaphoresis (Increased facial moisture) Lymphatic: Yes: Within Normal Limits - Diagnostic (1) Methadone maintenance therapy patient Current Visit: Yes Status: Chronic (2) Sedative, hypnotic or anxiolytic use disorder, moderate, in early remission Current Visit: Yes Status: Acute (3) Seizure disorder Current Visit: Yes Status: Chronic (4) Sequelae of cerebral infarction Current Visit: Yes Status: Chronic Comment: (L) side facial droop (5) Personal history of other infectious and parasitic diseases Current Visit: Yes Status: Chronic Comment: Hx Hepatitis C with abnormal labs (6) Asthma Current Visit: Yes Status: Chronic Qualifiers: Asthma severity: mild Asthma persistence: intermittent Asthma complication type: unspecified Qualified Code(s): J45.20 - Mild intermittent asthma, uncomplicated (7) Diabetes mellitus screening Current Visit: Yes Status: Acute (8) Chronic low back pain Current Visit: Yes Status: Acute Qualifiers: Back pain laterality: unspecified Sciatica presence: unspecified whether sciatica present Qualified Code(s): M54.5 - Low back pain; G89.29 - Other chronic pain Comment: Uses a walker for gait support. Cleared for Admission [facility] - Detox or Rehab Claeared for Rehab Admission: Yes [facility] Breath Alcohol Content Breath Alcohol Content: 0 Inpatient Rehab Admission - Initial Determination Are CD services needed?: Yes Free of communicable disease: Yes Not in need of hospitalization: Yes - Rehab Admission Criteria Previous failed treatment: Yes Poor recovery environment: Yes Comorbidities: Yes Lacks judgement: No Patient is meeting Inpatient Rehab admission criteria:: Yes"
[2018-12-02] MEDS ORDERED: IBUPROFEN 400 MG TABLET (FP) PO PRN (00:49)
[2018-12-02] MEDS ORDERED: MAG HYDROX/AL HYDROX/SIMETH 30 ML UNIT-DOSE CUP PO PRN (00:49)
[2018-12-02] MEDS ORDERED: MAGNESIUM CITRATE 300 ML BOTTLE PO PRN (00:49)
[2018-12-02] MEDS ORDERED: ACETAMINOPHEN 325 MG TABLET (FP) PO PRN (00:49)
[2018-12-02] MEDS ORDERED: MAGNESIUM HYDROX 2400MG/30ML ORAL SUSPENSION 30 ML CUP PO PRN (00:49)
[2018-12-02] MEDS ORDERED: P-EPHED 60MG/TRIPROLIDI 2.5MG TABLET PO PRN (00:49)
[2018-12-02] MEDS ORDERED: hydrOXYzine PAMOATE 25 MG CAPSULE (FP) PO PRN (00:49)
[2018-12-02] MEDS ORDERED: LOPERAMIDE HCL 2 MG CAPSULE PO PRN (00:49)
[2018-12-02] MEDS ORDERED: MENTHOL/PHENOL 1 EACH UD MM PRN (00:49)
[2018-12-02] MEDS ORDERED: METHADONE HCL 10 MG TABLET PO ONE ×2 (00:51→11:30)
[2018-12-02] MEDS ORDERED: guaiFENesin 200 MG/10 ML 10 ML UNIT-DOSE CUPS PO PRN (01:01)
[2018-12-02] MEDS ORDERED: ALBUTEROL SO4 0.083% IH SOL 2.5 MG/3 ML VIAL.NEB. NEB PRN (01:31)
[2018-12-02] MEDS ORDERED: TUBERCULIN PPD 5 TU/0.1ML VIAL ID ONE (01:53)
[2018-12-02] MEDS ORDERED: METHADONE HCL 10 MG TABLET PO SCH (09:45)
[2018-12-02] MEDS: PRENATAL VITAMINS W/ FOLIC ACID TABLET (FP) PO SCH (09:47)
[2018-12-02] MEDS: levETIRAcetam 500 MG TABLET (FP) PO SCH ×2 (09:47→21:42)
[2018-12-02] MEDS: ASPIRIN 81 MG CHEWABLE TABLETS PO SCH (09:48)
[2018-12-02] MEDS: FUROSEMIDE 40 MG TABLET (FP) PO SCH (09:48)
[2018-12-02] MEDS: SPIRONOLACTONE 25 MG TABLET (FP) PO SCH (09:48)
[2018-12-02] MEDS ORDERED: METHADONE HCL 10 MG TABLET ONE (12:39)
[2018-12-02] MEDS ORDERED: METHADONE HCL 40 MG DISPERSABLE TABLET ONE (12:40)
[2018-12-02] MEDS ORDERED: METHADONE 40 MG, METHADONE 20 MG PO ONE (13:00)
[2018-12-02 13:31] LABS: HEMATOCRIT 32.7 % (32.4-45.2); MCH 28.9 pg (25.7-33.7); MCHC 33.6 g/dl (32.0-36.0); MEAN CELL VOLUME 85.9 fl (80-96); RBC 3.81 M/mm3 (3.60-5.2); WHITE BLOOD COUNT 3.3 K/mm3 (4.0-10.0)
[2018-12-02 13:57] LABS: ALBUMIN 3.3 g/dl (3.4-5.0); ALK PHOS 101 U/L (45-117); ANION GAP 3 MMOL/L (8-16); BLOOD UREA NITROGEN 15 mg/dL (7-18); CHLORIDE 104 mmol/L (98-107); CO2 28 mmol/L (21-32); CREATININE 0.8 mg/dL (0.55-1.3); GLUCOSE,RANDOM 167 mg/dL (74-106); MEAN PLT VOLUME 11.9 fl (7.5-11.1); PLATELET COUNT 34 K/MM3 (134-434); POTASSIUM 4.1 mmol/L (3.5-5.1); SGOT/AST 30 U/L (15-37); SGPT/ALT 21 U/L (13-61); SODIUM 136 mmol/L (136-145); TOT PROT 6.9 g/dl (6.4-8.2)
--- NOTE | 2018-12-02 14:09 | PN ---
[facility] Progress Note Note: Vital Signs Temperature 97.7 F 12/02/18 07:18 Pulse Rate 102 H 12/02/18 09:29 Respiratory Rate 18 12/02/18 07:18 Blood Pressure 147/74 12/02/18 09:29 O2 Sat by Pulse Oximetry (%) Laboratory Last Values WBC 3.3 K/mm3 (4.0-10.0) L 12/02/18 10:50 RBC 3.81 M/mm3 (3.60-5.2) 12/02/18 10:50 Hgb 11.0 GM/dL (10.7-15.3) 12/02/18 10:50 Hct 32.7 % (32.4-45.2) 12/02/18 10:50 MCV 85.9 fl (80-96) 12/02/18 10:50 MCH 28.9 pg (25.7-33.7) 12/02/18 10:50 MCHC 33.6 g/dl (32.0-36.0) 12/02/18 10:50 RDW 15.0 % (11.6-15.6) 12/02/18 10:50 Plt Count 34 K/MM3 (134-434) L* 12/02/18 10:50 MPV 11.9 fl (7.5-11.1) H 12/02/18 10:50 Sodium 136 mmol/L (136-145) 12/02/18 10:50 Potassium 4.1 mmol/L (3.5-5.1) 12/02/18 10:50 Chloride 104 mmol/L (98-107) 12/02/18 10:50 Carbon Dioxide 28 mmol/L (21-32) 12/02/18 10:50 Anion Gap 3 MMOL/L (8-16) L 12/02/18 10:50 BUN 15 mg/dL (7-18) 12/02/18 10:50 Creatinine 0.8 mg/dL (0.55-1.3) 12/02/18 10:50 Creat Clearance w eGFR > 60 (>60) 12/02/18 10:50 POC Glucometer 76 UNITS (80-120) 12/02/18 06:52 Random Glucose 167 mg/dL (74-106) H 12/02/18 10:50 Calcium 8.0 mg/dL (8.5-10.1) L 12/02/18 10:50 Total Bilirubin 1.0 mg/dL (0.2-1) 12/02/18 10:50 AST 30 U/L (15-37) 12/02/18 10:50 ALT 21 U/L (13-61) 12/02/18 10:50 Alkaline Phosphatase 101 U/L (45-117) 12/02/18 10:50 Ammonia 124.70 umol/L (11-32) H 12/02/18 10:50 Total Protein 6.9 g/dl (6.4-8.2) 12/02/18 10:50 Albumin 3.3 g/dl (3.4-5.0) L 12/02/18 10:50 leukopenia,thrombocytopenia,ammonia 124 treatment lactulose 20 grams po tid repeat cbc in am close monitoring
[2018-12-02] MEDS: LACTULOSE 20 GM/30 ML UDC (FOR ORAL USE ONLY) PO SCH ×2 (15:01→21:42)
[2018-12-02] MEDS: THIAMINE HCL 100 MG TABLET (FP) PO SCH (21:42)
[2018-12-02] MEDS ORDERED: MELATONIN 5 MG TABLETS PO PRN (22:00)
[2018-12-03] MEDS: METHADONE HCL 40 MG DISPERSABLE TABLET PO SCH (06:45)
[2018-12-03] MEDS: LACTULOSE 20 GM/30 ML UDC (FOR ORAL USE ONLY) PO SCH ×3 (07:20→21:39)
[2018-12-03] MEDS: SPIRONOLACTONE 25 MG TABLET (FP) PO SCH (09:40)
[2018-12-03] MEDS: levETIRAcetam 500 MG TABLET (FP) PO SCH ×2 (09:40→21:41)
[2018-12-03] MEDS: FUROSEMIDE 40 MG TABLET (FP) PO SCH (09:41)
[2018-12-03] MEDS: PRENATAL VITAMINS W/ FOLIC ACID TABLET (FP) PO SCH (09:41)
[2018-12-03] MEDS: ASPIRIN 81 MG CHEWABLE TABLETS PO SCH (10:25)
[2018-12-03 10:38] LABS: URINE APPEARANCE SLCLOUDY; URINE BILIRUBIN NEGATIVE (<2.0 mg/dL); URINE COLOR YELLOW; URINE GLUCOSE (UA) NEGATIVE (NEGATIVE); URINE KETONE NEGATIVE (NEGATIVE); URINE LEUK ESTERASE NEGATIVE (NEGATIVE); URINE NITRITE NEGATIVE (NEGATIVE); URINE PROTEIN NEGATIVE (NEGATIVE); URINE UROBILINOGEN 4.0 E.U/dl mg/dL (0.2-1.0)
[2018-12-03 10:44] LABS: HEMATOCRIT 32.3 % (32.4-45.2); MCH 28.9 pg (25.7-33.7); MEAN PLT VOLUME 10.9 fl (7.5-11.1); RDW 14.6 % (11.6-15.6); WHITE BLOOD COUNT 3.6 K/mm3 (4.0-10.0)
[2018-12-03 10:56] LABS: PLATELET COUNT 35 K/MM3 (134-434)
[2018-12-03] MEDS ORDERED: LORazepam 2 MG/ML SDV VIAL ONE (11:25)
--- NOTE | 2018-12-03 11:37 | PN ---
[facility] Progress Note Note: 58 years old female admitted on 12/01/18 for alcohol rehab after medically cleared from ER from 11/30/18 to 12/01/18 patient had seizure during the relapse prevention meeting observed patient lying on floor right cheek on floor staff reported that patient had seizure left temporal hit the ground due to low plt of 35 ambulance was called information provided to the ER Dr. Andrea at 1044 am ER evaluation with head CT and neurological assessment protocol no visible injury no blood detected methadone maintenance program received 80 mg of methadone today ammonia elevation 124 treated with lactulose reduced to 71 cardiovascular insufficiency treated with Lasix 40 mg and spironolactone 50 mg long history of seizure treated with keppra 500 mg bid discontinue motrin aspirin order INR auditory hallucination about son "yesterday" according to the record that her son 16 years ago psychiatric referral proposition: return to [facility] rehab upon medical clearance
[2018-12-03 14:30] LABS: EPI CELLS 2+ /HPF (FEW); URINE BACTERIA 1+ /hpf (NONE SEEN)
[2018-12-03 14:31] LABS: YEAST 1+
--- NOTE | 2018-12-03 15:46 | EKG ---
Test Reason : Blood Pressure : / mmHG Vent. Rate : 081 BPM Atrial Rate : 081 BPM P-R Int : 178 ms QRS Dur : 086 ms QT Int : 410 ms P-R-T Axes : 057 007 039 degrees QTc Int : 476 ms NORMAL SINUS RHYTHM NORMAL ECG WHEN COMPARED WITH ECG OF 01-DEC-2018 16:47, NO SIGNIFICANT CHANGE WAS FOUND Confirmed by LADARIUS BERNARDO MD ([id number]) on 12/03/2018 3:45:41 PM Referred By: Confirmed By:LADARIUS BERNARDO MD
[2018-12-03] MEDS: THIAMINE HCL 100 MG TABLET (FP) PO SCH (21:39)
--- NOTE | 2018-12-04 01:22 | PN ---
[facility] Progress Note Note: NOTE FOR A VISIT ON 12/03/2018 AT 7.23AM Patient was a seen and evaluated by Dr. Dias yesterday with complaint of abnormal lab and low platelet. She reports that she was bleeding but denies bleeding at this time. Patient also states that her notified her in a phone call that her 15 years old son yesterday Vital Signs Temperature 99.9 F H 12/02/18 11:51 Pulse Rate 65 12/02/18 09:28 Respiratory Rate 18 12/03/18 03:30 Blood Pressure 107/70 12/02/18 09:28 O2 Sat by Pulse Oximetry (%) Action: Awaiting labs ordered yesterday by Dr. Dias Psych Consult initiated
[2018-12-04] MEDS: METHADONE HCL 40 MG DISPERSABLE TABLET PO SCH (06:06)
[2018-12-04] MEDS: LACTULOSE 20 GM/30 ML UDC (FOR ORAL USE ONLY) PO SCH ×3 (06:06→21:16)
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
[2018-12-04] MEDS: levETIRAcetam 500 MG TABLET (FP) PO SCH ×2 (09:44→21:16)
[2018-12-04] MEDS: SPIRONOLACTONE 25 MG TABLET (FP) PO SCH (09:45)
[2018-12-04] MEDS: PRENATAL VITAMINS W/ FOLIC ACID TABLET (FP) PO SCH (09:45)
[2018-12-04] MEDS: FUROSEMIDE 40 MG TABLET (FP) PO SCH (09:45)
[2018-12-04 10:50] LABS: INR 1.23 (0.83-1.09); PROTHROMBIN TIME (PATIENT) 14.5 SEC (9.7-13.0)
[2018-12-04 10:53] LABS: ACTIVATED PTT 23.3 SECONDS (25.2-36.5)
[2018-12-04] MEDS: FLUoxetine HCL 20 MG CAPSULE (FP) PO SCH (15:44)
[2018-12-04] MEDS: THIAMINE HCL 100 MG TABLET (FP) PO SCH (21:16)
[2018-12-04] MEDS: GABAPENTIN 300 MG CAPSULE (FP) PO SCH (21:19)
[2018-12-04] MEDS: NICOTINE POLACRILEX 2 MG GUM BUC PRN (21:29)
[2018-12-04] MEDS ORDERED: traZODone HCL 100 MG TABLET (FP) PO SCH (22:00)
[2018-12-04] MEDS ORDERED: QUEtiapine FUMARATE 100 MG TABLET (FP) PO SCH (22:00)
[2018-12-05] MEDS: METHADONE HCL 40 MG DISPERSABLE TABLET PO SCH (06:34)
[2018-12-05] MEDS: LACTULOSE 20 GM/30 ML UDC (FOR ORAL USE ONLY) PO SCH ×2 (06:34→14:30)
[2018-12-05] MEDS: NICOTINE POLACRILEX 2 MG GUM BUC PRN ×2 (06:36→09:45)
[2018-12-05] MEDS: PRENATAL VITAMINS W/ FOLIC ACID TABLET (FP) PO SCH (09:43)
[2018-12-05] MEDS: levETIRAcetam 500 MG TABLET (FP) PO SCH (09:43)
[2018-12-05] MEDS: GABAPENTIN 300 MG CAPSULE (FP) PO SCH (09:43)
[2018-12-05] MEDS: SPIRONOLACTONE 25 MG TABLET (FP) PO SCH (09:43)
[2018-12-05] MEDS: FLUoxetine HCL 20 MG CAPSULE (FP) PO SCH (09:43)
[2018-12-05] MEDS: FUROSEMIDE 40 MG TABLET (FP) PO SCH (09:44)
[2018-12-05 10:51] VITALS: BP 103/57; PULSE 91; TEMP 97.3
--- NOTE | 2018-12-05 12:03 | PN ---
[facility] Progress Note Note: AT APPROXIMATELY 9:58AM, LABORER [employer]MINAL WAS ON UNIT SPEAKING WITH ANOTHER PATIENT, WHEN RN SUMMONED LABOR[employer] TO PATIENT'S ROOM SHE WAS SEIZING. PATIENT NOTED HAVING GRAND MAL SEIZURE WHILE IN BED. PATIENT'S HEAD WAS SUPPORTED BY RN AND LABORER [employer]INE [employer]MINAL SUPPORTED PATIENT'S TORSO. INITIAL SEIZURE LAST APPROXIMATELY 2 MINUTES. APPROXIMATELY 1-2 MINUTES AFTER FIRST SEIZURE, PATIENT BEGAN TO SEIZE AGAIN. SUBSEQUENT EPISODE LASTED 20 SECONDS. PATIENT HAD TOTAL OF 4 SEIZURE EPISODES ( TOTAL TIME APPROXIMATELY 3 MINUTES). PATIENT GIVEN O2 VIA FACE MASK, SAFETLY MAINTAINED, VITAL SIGNS MEASURED: BP 103/51, HR 91, RR 22, O2 SATS 96%. BLOOD SUGAR 174. PMH INCLUDES MMTP, THROMBOCYTOPENIA, ELEVATED AMMONIA LEVELS, HEP C, CIRRHOSIS OF LIVER, SEIZURE DISORDER, BZO DEPENDENCE AND DM. ORDER TO TRANSFER PATIENT TO ER FOR FURTHER EVALUATION. REPORT GIVEN TO DR. ORTEGA. Laboratory Tests 12/02/18 12/02/18 12/02/18 06:52 10:50 10:50 WBC 3.3 L RBC 3.81 Hgb 11.0 Hct 32.7 MCV 85.9 MCH 28.9 MCHC 33.6 RDW 15.0 Plt Count 34 L* MPV 11.9 H PT with INR INR PTT (Actin FS) Sodium 136 Potassium 4.1 Chloride 104 Carbon Dioxide 28 Anion Gap 3 L BUN 15 Creatinine 0.8 Creat Clearance w eGFR > 60 POC Glucometer 76 Random Glucose 167 H Hemoglobin A1c % Calcium 8.0 L Total Bilirubin 1.0 AST 30 ALT 21 Alkaline Phosphatase 101 Ammonia Total Protein 6.9 Albumin 3.3 L Urine Color Urine Appearance Urine pH Ur Specific [place] Urine Protein Urine Glucose (UA) Urine Ketones Urine Blood Urine Nitrite Urine Bilirubin Urine Urobilinogen Ur Leukocyte Esterase Urine WBC (Auto) Urine RBC (Auto) Ur Epithelial Cells Urine Bacteria Urine Yeast RPR Titer 12/02/18 12/02/18 12/02/18 10:50 10:50 10:50 WBC RBC Hgb Hct MCV MCH MCHC RDW Plt Count MPV PT with INR INR PTT (Actin FS) Sodium Potassium Chloride Carbon Dioxide Anion Gap BUN Creatinine Creat Clearance w eGFR POC Glucometer Random Glucose Hemoglobin A1c % 6.5 H Calcium Total Bilirubin AST ALT Alkaline Phosphatase Ammonia 124.70 H Total Protein Albumin Urine Color Urine Appearance Urine pH Ur Specific [place] Urine Protein Urine Glucose (UA) Urine Ketones Urine Blood Urine Nitrite Urine Bilirubin Urine Urobilinogen Ur Leukocyte Esterase Urine WBC (Auto) Urine RBC (Auto) Ur Epithelial Cells Urine Bacteria Urine Yeast RPR Titer Nonreactive 12/02/18 12/03/18 12/03/18 16:41 06:43 09:00 WBC 3.6 L RBC 3.80 Hgb 11.0 Hct 32.3 L MCV 85.0 MCH 28.9 MCHC 34.0 RDW 14.6 Plt Count 35 L* MPV 10.9 PT with INR INR PTT (Actin FS) Sodium Potassium Chloride Carbon Dioxide Anion Gap BUN Creatinine Creat Clearance w eGFR POC Glucometer 91 92 Random Glucose Hemoglobin A1c % Calcium Total Bilirubin AST ALT Alkaline Phosphatase Ammonia Total Protein Albumin Urine Color Urine Appearance Urine pH Ur Specific [place] Urine Protein Urine Glucose (UA) Urine Ketones Urine Blood Urine Nitrite Urine Bilirubin Urine Urobilinogen Ur Leukocyte Esterase Urine WBC (Auto) Urine RBC (Auto) Ur Epithelial Cells Urine Bacteria Urine Yeast RPR Titer 12/03/18 12/03/18 12/03/18 09:00 09:00 11:27 WBC RBC Hgb Hct MCV MCH MCHC RDW Plt Count MPV PT with INR INR PTT (Actin FS) Sodium Potassium Chloride Carbon Dioxide Anion Gap BUN Creatinine Creat Clearance w eGFR POC Glucometer 165 Random Glucose Hemoglobin A1c % Calcium Total Bilirubin AST ALT Alkaline Phosphatase Ammonia 71.40 H Total Protein Albumin Urine Color Yellow Urine Appearance Slcloudy Urine pH 6.0 Ur Specific [place] 1.016 Urine Protein Negative Urine Glucose (UA) Negative Urine Ketones Negative Urine Blood 1+ H Urine Nitrite Negative Urine Bilirubin Negative Urine Urobilinogen 4.0 e.u/dl H Ur Leukocyte Esterase Negative Urine WBC (Auto) 3-0 Urine RBC (Auto) 5-10 Ur Epithelial Cells 2+ Urine Bacteria 1+ Urine Yeast 1+ RPR Titer 12/03/18 12/04/18 12/04/18 17:08 06:05 08:44 WBC RBC Hgb Hct MCV MCH MCHC RDW Plt Count MPV PT with INR 14.50 H INR 1.23 H PTT (Actin FS) 23.3 L Sodium Potassium Chloride Carbon Dioxide Anion Gap BUN Creatinine Creat Clearance w eGFR POC Glucometer 125 85 Random Glucose Hemoglobin A1c % Calcium Total Bilirubin AST ALT Alkaline Phosphatase Ammonia Total Protein Albumin Urine Color Urine Appearance Urine pH Ur Specific [place] Urine Protein Urine Glucose (UA) Urine Ketones Urine Blood Urine Nitrite Urine Bilirubin Urine Urobilinogen Ur Leukocyte Esterase Urine WBC (Auto) Urine RBC (Auto) Ur Epithelial Cells Urine Bacteria Urine Yeast RPR Titer 12/04/18 12/04/18 12/05/18 08:44 11:55 06:33 WBC RBC Hgb Hct MCV MCH MCHC RDW Plt Count MPV PT with INR INR PTT (Actin FS) Sodium Potassium 3.6 Chloride Carbon Dioxide Anion Gap BUN Creatinine Creat Clearance w eGFR POC Glucometer 104 87 Random Glucose Hemoglobin A1c % Calcium Total Bilirubin AST ALT Alkaline Phosphatase Ammonia Total Protein Albumin Urine Color Urine Appearance Urine pH Ur Specific [place] Urine Protein Urine Glucose (UA) Urine Ketones Urine Blood Urine Nitrite Urine Bilirubin Urine Urobilinogen Ur Leukocyte Esterase Urine WBC (Auto) Urine RBC (Auto) Ur Epithelial Cells Urine Bacteria Urine Yeast RPR Titer 12/05/18 10:19 WBC RBC Hgb Hct MCV MCH MCHC RDW Plt Count MPV PT with INR INR PTT (Actin FS) Sodium Potassium Chloride Carbon Dioxide Anion Gap BUN Creatinine Creat Clearance w eGFR POC Glucometer 174 Random Glucose Hemoglobin A1c % Calcium Total Bilirubin AST ALT Alkaline Phosphatase Ammonia Total Protein Albumin Urine Color Urine Appearance Urine pH Ur Specific [place] Urine Protein Urine Glucose (UA) Urine Ketones Urine Blood Urine Nitrite Urine Bilirubin Urine Urobilinogen Ur Leukocyte Esterase Urine WBC (Auto) Urine RBC (Auto) Ur Epithelial Cells Urine Bacteria Urine Yeast RPR Titer
== END 2018-12-05 15:40 | disposition short-term general hospital (02) | DRG 772 ==
LOC: YASAS 23:20 → Y3E 23:43
PROVIDERS: ADMIT Psychiatry & Neurology Psychiatry; ATTEND Psychiatry & Neurology Psychiatry
PROC: HZ42ZZZ Group Counseling for Substance Abuse Treatment, Cognitive-Behavioral (ICD-10-PCS; principal; 2018-12-01)
DX: F10.20 Alcohol dependence, uncomplicated (principal); F11.20 Opioid dependence, uncomplicated; F13.20 Sedative, hypnotic or anxiolytic dependence, uncomplicated; F14.20 Cocaine dependence, uncomplicated; F17.210 Nicotine dependence, cigarettes, uncomplicated; F31.9 Bipolar disorder, unspecified; F43.10 Post-traumatic stress disorder, unspecified; D69.6 Thrombocytopenia, unspecified; I40.9 Acute myocarditis, unspecified; M54.5 Low back pain; G89.29 Other chronic pain; J45.20 Mild intermittent asthma, uncomplicated; G40.89 Other seizures; G40.909 Epilepsy, unspecified, not intractable, without status epilepticus; I69.392 Facial weakness following cerebral infarction; D72.819 Decreased white blood cell count, unspecified; R01.1 Cardiac murmur, unspecified; Z87.820 Personal history of traumatic brain injury; Z99.89 Dependence on other enabling machines and devices; Z87.42 Personal history of other diseases of the female genital tract; Z13.1 Encounter for screening for diabetes mellitus
CPT/HCPCS: 36415; 80053; 80177; 81003; 81015; 82140; 82962; 83036; 84132; 85027; 85610; 85730; 86593; 93005; 93010

== ENCOUNTER 2018-12-03 12:16 | Emergency (ER) | payer OTHER ==
[2018-12-03 12:20] VITALS: BMI 35.2
--- NOTE | 2018-12-03 12:54 | PDOC ---
History of Present Illness - General History Source: Patient Exam Limitations: No Limitations - History of Present Illness Initial Comments: 12/03/18 12:44 58 YOF with h/o seizure disorder (on Keppra), substance use disorder (alcohol, cocaine in past, heroin), bipolar disorder, CHF, cirrhosis, depression, and NIDDM, who p/w seizure and fall onto the floor as per [facility] staff. She was reportedly in a group session when she had the episode, fell and hit her right scalp. The patient herself notes only mild pain to the right posterior scalp, as well as unchanged head-to-toe body aches for the past few days since stopping drug use. The patient struggles with some degree of chronic paranoia and hallucinations, and she notes these are worse than normal over the past few days. She otherwise denies any change in her normal baseline. <Vesta Burns - Last Filed: 12/03/18 14:49> <Korey Okeefe - Last Filed: 12/03/18 15:32> - General History Source: Patient Exam Limitations: Intoxication, Other (post ictal ) <Reshma Watt - Last Filed: 12/05/18 13:09> - General Chief Complaint: Seizure Stated Complaint: SEIZURE Time Seen by Provider: 12/03/18 12:37 Past History - Past Medical History Asthma: Yes Cardiac Disorders: Yes (murmur) CVA: Yes COPD: No Diabetes: Yes (Insulin dependent) GI Disorders: No Disorders: No HTN: Yes Kidney Stones: No Liver Disease: Yes (Hx Hep C) Seizures: Yes - Surgical History Abdominal Surgery: No Appendectomy: No Cardiac Surgery: No Cholecystectomy: No Lung Surgery: No Neurologic Surgery: No Orthopedic Surgery: No - Reproductive History PID: No - Suicide/Smoking/Psychosocial Hx Smoking History: Current every day smoker Have you smoked in the past 12 months: Yes Number of Cigarettes Smoked Daily: 20 Information on smoking cessation initiated: No 'Breaking Loose' booklet given: 12/01/18 Hx Alcohol Use: No Drug/Substance Use Hx: Yes Substance Use Type: Heroin Hx Substance Use Treatment: No <Vesta Burns - Last Filed: 12/03/18 14:49> <Korey Okeefe - Last Filed: 12/03/18 15:32> <Reshma Watt - Last Filed: 12/05/18 13:09> - Past Medical History Allergies/Adverse Reactions: Allergies Allergy/AdvReac Type Severity Reaction Status Date / Time haloperidol [From Haldol] AdvReac Verified 12/05/18 11:24 Home Medications: Ambulatory Orders Aspirin 81 mg PO DAILY 05/15/13 Insulin Regular, Human [Humulin R -] 8 units SQ DAILY 05/15/13 Furosemide [Lasix] 40 mg PO DAILY 11/30/18 Gabapentin 300 mg PO BID 11/30/18 Levetiracetam 500 mg PO BID 11/30/18 Methadone [Dolophine -] 80 mg PO DAILY 11/30/18 Quetiapine Fumarate [Seroquel] 100 mg PO DAILY 11/30/18 Rifaximin [Xifaxan] 550 mg PO BID 11/30/18 Spironolactone 50 mg PO DAILY 11/30/18 Review of Systems - Review of Systems Able to Perform ROS?: Yes Comments:: 12/03/18 13:15 GEN: head-to-toe mild myalgia, no fever, or chills HEENT: no ear pain, sore throat, vision change, or eye pain CV: no chest pain, palpitations, lightheadedness, or edema RESP: no cough, wheezing, or SOB GI: no abdominal pain, nausea, vomiting, diarrhea, constipation, or white/black/ bloody stool : no dysuria, hematuria, incontinence, retention, bleeding, or discharge MSK: no neck/back pain, muscle weakness/pain, or joint swelling/pain NEURO: seizure, no headache, vertigo, numbness, tingling, or focal weakness PSYCH: no substance use, no behavior change SKIN: no jaundice, no rash ROS otherwise negative except as noted in HPI <Vesta Burns - Last Filed: 12/03/18 14:49> *Physical Exam - Vital Signs Last Vital Signs Temp Pulse Resp BP Pulse Ox 98.0 F 80 18 118/82 96 12/03/18 12:21 12/03/18 12:19 12/03/18 12:19 12/03/18 12:19 12/03/18 12:19 - Physical Exam Comments: 12/03/18 13:18 GENERAL: well-appearing, A/Ox4, no distress, answers questions appropriately, quiet voice, flat affect HEENT: PERRLA, EOMI, moist mucous membranes, no e/o scalp or facial trauma, minimal ttp right posterior parietus but no visualized contusion NECK/BACK: no midline ttp, no spinal stepoff or deformity, no hematoma, full ROM , neck supple CARDIOVASCULAR: regular rate/rhythm, normal S1S2, no MGR, strong peripheral pulses, capillary refill <2 seconds, extremities wwp, no edema LUNGS/RESPIRATORY: no respiratory distress, CTAB, nail clubbing noted GI/ABDOMEN: symmetric [id number], normoactive BS, soft, no ttp, no midline pulsatile masses : no CVA tenderness EXTREMITIES: no muscle atrophy, no acute deformity, no edema SKIN: warm and dry, no pallor, no jaundice, no rash, no bruising, no skin breakdown, no cuts, no lesions NEUROLOGICAL: GCS 15, CN II-XII grossly intact, 5/5 strength proximally and distally, no facial droop, gait normal PSYCH: endorses occasional hallucinations but not actively responding to internal stimuli, no SI/HI <Vesta Burns - Last Filed: 12/03/18 14:49> - Vital Signs Last Vital Signs Temp Pulse Resp BP Pulse Ox 99.4 F 79 20 131/73 100 12/03/18 15:14 12/03/18 15:14 12/03/18 15:14 12/03/18 15:14 12/03/18 15:14 <Korey Okeefe - Last Filed: 12/03/18 15:32> - Vital Signs Last Vital Signs Temp Pulse Resp BP Pulse Ox 99.4 F 79 20 131/73 100 12/03/18 15:14 12/03/18 15:14 12/03/18 15:14 12/03/18 15:14 12/03/18 15:14 <Reshma Watt - Last Filed: 12/05/18 13:09> Moderate Sedation - Procedure Monitoring Vital Signs: Procedure Monitoring Vital Signs Temperature 98.0 F 12/03/18 12:21 Pulse Rate 80 12/03/18 12:19 Respiratory Rate 18 12/03/18 12:19 Blood Pressure 118/82 12/03/18 12:19 O2 Sat by Pulse Oximetry (%) 96 12/03/18 12:19 <Vesta Burns - Last Filed: 12/03/18 14:49> - Procedure Monitoring Vital Signs: Procedure Monitoring Vital Signs Temperature 99.4 F 12/03/18 15:14 Pulse Rate 79 12/03/18 15:14 Respiratory Rate 20 12/03/18 15:14 Blood Pressure 131/73 12/03/18 15:14 O2 Sat by Pulse Oximetry (%) 100 12/03/18 15:14 <Korey Okeefe - Last Filed: 12/03/18 15:32> - Procedure Monitoring Vital Signs: Procedure Monitoring Vital Signs Temperature 99.4 F 12/03/18 15:14 Pulse Rate 79 12/03/18 15:14 Respiratory Rate 20 12/03/18 15:14 Blood Pressure 131/73 12/03/18 15:14 O2 Sat by Pulse Oximetry (%) 100 12/03/18 15:14 <Reshma Watt - Last Filed: 12/05/18 13:09> Heart Score/ECG Review #1 12/03/18 13:20 NSR rate 69 with normal axis and intervals, TW flattening in aVL, aVF, diffuse precordial leads, no HARLEEN or STD <Vesta Burns - Last Filed: 12/03/18 14:49> ED Treatment Course - ADDITIONAL ORDERS Additional order review: Laboratory Results 12/03/18 15:03 POC Glucometer [id number] 12/03/18 15:03 POC Glucometer [id number] <Korey Okeefe - Last Filed: 12/03/18 15:32> - ADDITIONAL ORDERS Additional order review: 12/03/18 15:03 POC Glucometer [id number] <Reshma Watt - Last Filed: 12/05/18 13:09> Medical Decision Making - Medical Decision Making 12/03/18 13:31 Pt p/w injury from [facility] [employer]. Initial Vital Signs Pulse Resp BP Pulse Ox 80 18 118/82 96 12/03/18 12:19 12/03/18 12:19 12/03/18 12:19 12/03/18 12:19 Exam: As noted in Physical Exam section. DDX IBNLT: scalp contusion, concussion, ICH, skull fracture, facial bone fracture, etc. Most likely seizure as patient had postictal state and reports this is the same as her normal seizures. W/U ordered: Head CT EKG FSBG TX ordered: None EKG: Reviewed; results as noted in ECG Review section. CT: Labs: Reassessment: Repeat VS: DISCHARGE The Pt has gotten significant relief of symptoms while in the ED. Workup is not concerning for emergency-level pathology at this time. The Pt is appropriate for discharge back to [facility] with close outpatient follow up. They are comfortable with this plan and will follow up with their primary care provider in 1-3 days. Specific return precautions are discussed and they will come back to the ER if necessary. <Vesta Burns - Last Filed: 12/03/18 14:49> *DC/Admit/Observation/Transfer - Discharge Dispostion Decision to Admit order: No <Vesta Burns - Last Filed: 12/03/18 14:49> <Korey Okeefe - Last Filed: 12/03/18 15:32> <Reshma Watt - Last Filed: 12/05/18 13:09> Diagnosis at time of Disposition: Thrombocytopenia Head injury Qualifiers: Encounter type: initial encounter Qualified Code(s): S09.90XA - Unspecified injury of head, initial encounter - Discharge Dispostion Disposition: [facility] Condition at time of disposition: Stable - Referrals Referrals: ON STAFF,NOT [Primary Care Provider] - - Patient Instructions Printed Discharge Instructions: DI for Closed Head Injury Additional Instructions: You were seen in the ER for a seizure and a head injury. We took a CT scan which showed no new problems. Your EKG and blood glucose were not concerning here in the department. After our assessment, we do not believe you are having a medical emergency at this time, and we believe you are safe to go back to [facility]. Take Motrin and Tylenol as needed for pain. Follow up with the [facility] provider or your primary care provider in the next 1-3 days. Please come back to the ER at any time, 24 hours a day, for any new or worsening symptoms, especially severe pain, vision troubles, difficulty walking/balancing, passing out, or other symptoms. If you are having symptoms that make it unsafe to drive , please call 911. - Post Discharge Activity
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
[2018-12-03 15:15] VITALS: BP 131/73; PULSE 79; TEMP 99.4
--- NOTE | 2018-12-03 15:31 | EKG ---
Test Reason : Blood Pressure : / mmHG Vent. Rate : 069 BPM Atrial Rate : 069 BPM P-R Int : 170 ms QRS Dur : 092 ms QT Int : 420 ms P-R-T Axes : 000 -01 025 degrees QTc Int : 450 ms NORMAL SINUS RHYTHM NONSPECIFIC T WAVE ABNORMALITY ABNORMAL ECG WHEN COMPARED WITH ECG OF 02-DEC-2018 02:16, NO SIGNIFICANT CHANGE WAS FOUND Confirmed by LADARIUS BERNARDO MD ([id number]) on 12/03/2018 3:30:47 PM Referred By: Confirmed By:LADARIUS BERNARDO MD
== END 2018-12-03 16:00 | disposition short-term general hospital (02) ==
LOC: JER 12:16
DX: F19.10 Other psychoactive substance abuse, uncomplicated (principal); F31.9 Bipolar disorder, unspecified; I50.9 Heart failure, unspecified; G40.909 Epilepsy, unspecified, not intractable, without status epilepticus; E11.9 Type 2 diabetes mellitus without complications; Z79.4 Long term (current) use of insulin; I10 Essential (primary) hypertension; R01.1 Cardiac murmur, unspecified; B19.20 Unspecified viral hepatitis C without hepatic coma
CPT/HCPCS: 70450-TC; 82962; 93005; 93010; 99282-25

== ENCOUNTER 2018-12-05 10:58 | Inpatient (IN) | payer OTHER ==
--- NOTE | 2018-12-05 11:55 | PDOC ---
History of Present Illness - General Chief Complaint: Seizure Stated Complaint: SEIZURE Time Seen by Provider: 12/05/18 11:49 History Source: Patient, Old Records, Other ([facility]) Exam Limitations: Intoxication, Other (post ictal ) - History of Present Illness Initial Comments: 12/05/18 12:06 This is a 58 y/o F with PMH of polysubstance abuse (benzos, alcohol, cocaine, heroin), ?CHF, epilepsy, cirrhosis, depression, Type 2 DM, recently dcd from [facility] 12/01 (was here for lethargy), at [facility] since Rehab then (12/01/18) and had an ED visit 12/03 due to fall (negative CT, sent back to [facility]), who presents today due to 4 sz episodes, 2 of which were grand mal up to 1 min. Patient has been on keppra 500 bid, received one dose this AM and 2 of versed by EMS. Patient has been clean other than methadone but took 2 sticks of klonopin before presenting to [facility] on 11/30/17. According to [facility] notes patient has been in DTs and having audio hallucinations, however wasnt considered to be in benzo withdrawal. Patient is also on methadone 80 mg daily. She has hyperammonemia averaging 70-90 and thrombocytopenia 36 due to liver disease. She is currently post ictal and unable to provide coherent history 12/05/18 13:58 12/05/18 13:59 12/05/18 14:17 Past History - Past Medical History Allergies/Adverse Reactions: Allergies Allergy/AdvReac Type Severity Reaction Status Date / Time haloperidol [From Haldol] AdvReac Verified 12/05/18 11:24 Home Medications: Ambulatory Orders Aspirin 81 mg PO DAILY 05/15/13 Insulin Regular, Human [Humulin R -] 8 units SQ DAILY 05/15/13 Furosemide [Lasix] 40 mg PO DAILY 11/30/18 Gabapentin 300 mg PO BID 11/30/18 Levetiracetam 500 mg PO BID 11/30/18 Methadone [Dolophine -] 80 mg PO DAILY 11/30/18 Quetiapine Fumarate [Seroquel] 100 mg PO DAILY 11/30/18 Rifaximin [Xifaxan] 550 mg PO BID 11/30/18 Spironolactone 50 mg PO DAILY 11/30/18 Asthma: Yes Cardiac Disorders: Yes (murmur) CVA: Yes COPD: No Diabetes: Yes (Insulin dependent) GI Disorders: No Disorders: No HTN: Yes Kidney Stones: No Liver Disease: Yes (Hx Hep C) Seizures: Yes - Surgical History Abdominal Surgery: No Appendectomy: No Cardiac Surgery: No Cholecystectomy: No Lung Surgery: No Neurologic Surgery: No Orthopedic Surgery: No - Reproductive History PID: No - Suicide/Smoking/Psychosocial Hx Smoking History: Current every day smoker Have you smoked in the past 12 months: Yes Number of Cigarettes Smoked Daily: 20 Information on smoking cessation initiated: No 'Breaking Loose' booklet given: 12/01/18 Hx Alcohol Use: No Drug/Substance Use Hx: No Substance Use Type: Heroin Hx Substance Use Treatment: No Review of Systems - Review of Systems Able to Perform ROS?: No (post ictal ) *Physical Exam - Vital Signs Last Vital Signs Temp Pulse Resp BP Pulse Ox 98.3 F 78 18 100/68 99 12/05/18 10:58 12/05/18 10:58 12/05/18 10:58 12/05/18 10:58 12/05/18 10:58 - Physical Exam General Appearance: Yes: Disheveled. 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 NML intact (grossly ) Moderate Sedation - Procedure Monitoring Vital Signs: Procedure Monitoring Vital Signs Temperature 98.3 F 12/05/18 10:58 Pulse Rate 78 12/05/18 10:58 Respiratory Rate 18 12/05/18 10:58 Blood Pressure 100/68 12/05/18 10:58 O2 Sat by Pulse Oximetry (%) 99 12/05/18 10:58 ED Treatment Course - LABORATORY CBC & Chemistry Diagram: 12/05/18 12:20 12/05/18 12:20 - ADDITIONAL ORDERS Additional order review: 12/05/18 14:22 EKG ns 70, no evidence of acs, qtc calculated manually 430 labs consistent with baseline thrombocytopenia and hyperammonemia Spoke with Dr Azul, will give another keppra 500 IV in addition to keppra 500 tonight, will give a small dose of librium patient does not require a head CT given espablished SZ d/o admit to m/s for further neuro workup/medication adjustment *DC/Admit/Observation/Transfer Diagnosis at time of Disposition: Grand mal seizure, Cocaine dependence, Thrombocytopenia, Cocaine dependence, Sedative, hypnotic or anxiolytic use disorder, moderate, in early remission, Seizure disorder, Alcohol dependence, Methadone maintenance therapy patient, Polypharmacy - Discharge Dispostion Condition at time of disposition: Guarded Decision to Admit order: Yes - Referrals - Patient Instructions - Post Discharge Activity
--- NOTE | 2018-12-05 12:08 | PDOC ---
Attending Attestation - HPI HPI: 12/05/18 13:01 The patient is a 58 year old Female with a significant past medical history of polysubstance abuse (benzos, alcohol, cocaine, heroin), questionable CHF, epilepsy, cirrhosis, depression, Type 2 DM, recently dcd from [facility] 12/01/18, who presents from [facility] s/p 4 seizure episodes this morning. <Maria Teresa Hagen - Last Filed: 12/05/18 13:10> - Resident Resident Name: Reshma Watt - ED Attending Attestation I have performed the following: I have examined & evaluated the patient, The case was reviewed & discussed with the resident, I agree w/resident's findings & plan, Exceptions are as noted - Physicial Exam PE: 12/06/18 08:34 General Appearance: Yes: Disheveled. 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 NML intact (grossly ) - Medical Decision Making 12/05/18 13:46 Laboratory Tests 12/05/18 12/05/18 12/05/18 12:20 12:20 12:20 WBC 4.1 Hgb 10.9 Hct 31.7 L Plt Count 35 L* Sodium 137 Potassium 3.7 Chloride 104 Carbon Dioxide 29 Anion Gap 5 L BUN 15 Creatinine 0.8 Random Glucose 57 L Total Bilirubin 1.2 H Ammonia 71.56 H Pt stable in the ER Admitted to the hospitalist service given repeated seizures Call placed to Neurology for consultation <Corazon Sandoval - Last Filed: 12/06/18 08:35> Attestations - Attestations 12/05/18 13:11 Documentation prepared by Maria Teresa Hagen, acting as spanish medical interpreter for Corazon Sandoval MD <Maria Teresa Hagen - Last Filed: 12/05/18 13:10>
[2018-12-05 12:35] LABS: BASO % 0.4 % (0-2.0); EOS % 6.2 % (0-4.5); HEMATOCRIT 31.7 % (32.4-45.2); HEMOGLOBIN 10.9 GM/dL (10.7-15.3); LYMPH % 29.6 % (8-40); MCH 29.5 pg (25.7-33.7); MCHC 34.4 g/dl (32.0-36.0); MEAN CELL VOLUME 85.9 fl (80-96); MEAN PLT VOLUME 10.3 fl (7.5-11.1); NEUT % 48.8 % (42.8-82.8); RBC 3.69 M/mm3 (3.60-5.2); RDW 14.7 % (11.6-15.6); WHITE BLOOD COUNT 4.1 K/mm3 (4.0-10.0)
[2018-12-05 12:41] LABS: PLATELET COUNT 35 K/MM3 (134-434)
[2018-12-05] MEDS ORDERED: levETIRAcetam 500 MG/5 ML INJECTION VIAL IVPB ONE ×3 (12:57→21:31)
[2018-12-05] MEDS ORDERED: chlordiazePOXIDE HCL 10 MG CAPSULE PO ONE (12:58)
[2018-12-05] MEDS ORDERED: chlordiazePOXIDE 5 MG CAPSULE ONE (13:07)
[2018-12-05 13:15] LABS: ALBUMIN 3.2 g/dl (3.4-5.0); ALK PHOS 69 U/L (45-117); ANION GAP 5 MMOL/L (8-16); BILIRUBIN,TOTAL 1.2 mg/dL (0.2-1); BLOOD UREA NITROGEN 15 mg/dL (7-18); CHLORIDE 104 mmol/L (98-107); CO2 29 mmol/L (21-32); CREATININE 0.8 mg/dL (0.55-1.3); GLUCOSE,RANDOM 57 mg/dL (74-106); POTASSIUM 3.7 mmol/L (3.5-5.1); SGOT/AST 30 U/L (15-37); SGPT/ALT 20 U/L (13-61); SODIUM 137 mmol/L (136-145); TOT PROT 6.7 g/dl (6.4-8.2)
--- NOTE | 2018-12-05 16:01 | EKG ---
Test Reason : Blood Pressure : / mmHG Vent. Rate : 070 BPM Atrial Rate : 070 BPM P-R Int : 176 ms QRS Dur : 088 ms QT Int : 460 ms P-R-T Axes : 034 -04 022 degrees QTc Int : 496 ms NORMAL SINUS RHYTHM PROLONGED QT ABNORMAL ECG WHEN COMPARED WITH ECG OF 03-DEC-2018 13:20, NO SIGNIFICANT CHANGE WAS FOUND Confirmed by Alonzo Solis MD ([id number]) on 12/05/2018 4:00:32 PM Referred By: Confirmed By:Alonzo Solis MD
[2018-12-05] MEDS ORDERED: LACTULOSE 20 GM/30 ML UDC (FOR ORAL USE ONLY) PO PRN (16:37)
--- NOTE | 2018-12-05 16:37 | CON.NEURO ---
Consult - Alcohol/Substance Use Hx Alcohol Use: No - Smoking History Smoking history: Current every day smoker Have you smoked in the past 12 months: Yes Aproximately how many cigarettes per day: 20 Home Medications - Allergies Allergies/Adverse Reactions: Allergies Allergy/AdvReac Type Severity Reaction Status Date / Time haloperidol [From Haldol] AdvReac Verified 12/05/18 11:24 - Home Medications Home Medications: Ambulatory Orders Aspirin 81 mg PO DAILY 05/15/13 Insulin Regular, Human [Humulin R -] 8 units SQ DAILY 05/15/13 Furosemide [Lasix] 40 mg PO DAILY 11/30/18 Gabapentin 300 mg PO BID 11/30/18 Levetiracetam 500 mg PO BID 11/30/18 Methadone [Dolophine -] 80 mg PO DAILY 11/30/18 Quetiapine Fumarate [Seroquel] 100 mg PO DAILY 11/30/18 Rifaximin [Xifaxan] 550 mg PO BID 11/30/18 Spironolactone 50 mg PO DAILY 11/30/18 Physical Exam-Neuro Vital Signs: Vital Signs Temperature 98.3 F 12/05/18 10:58 Pulse Rate 78 12/05/18 16:25 Respiratory Rate 16 12/05/18 16:25 Blood Pressure 108/61 12/05/18 16:25 O2 Sat by Pulse Oximetry (%) 98 12/05/18 16:25 Labs: CBC, BMP 12/05/18 12:20 12/05/18 12:20 Assessment/Plan cc Episode of seizure HPI 58 year old female histoy of Polysubstance abuse ( benzo, occaine, heroin, ETOH), Epilepsy for one year, cirrhosis, depression, DM. Patient was here at hospital for fall and lethargy, and later sent to Drug rehab. Patient has negative ct head. Apparently she was not on any benzo. Patient had four episode of seizure , generalized tonic clonic activity. She LOC, There was no tongue bite. But patient do get tongue bite. She was on keppra 500 mg po bid and neurontin 300 mg po bid. According to Rehab notes, she was in DTs and having aduditory hallucinations. She is also on methadone . She has low platelet due to liver disease. PMH as above. Allergies/Adverse Reactions: Allergies Allergy/AdvReac Type Severity Reaction Status Date / Time haloperidol [From Haldol] AdvReac Verified 12/05/18 11:24 Home Medications: Ambulatory Orders Aspirin 81 mg PO DAILY 05/15/13 Insulin Regular, Human [Humulin R -] 8 units SQ DAILY 05/15/13 Furosemide [Lasix] 40 mg PO DAILY 11/30/18 Gabapentin 300 mg PO BID 11/30/18 Levetiracetam 500 mg PO BID 11/30/18 Methadone [Dolophine -] 80 mg PO DAILY 11/30/18 Quetiapine Fumarate [Seroquel] 100 mg PO DAILY 11/30/18 Rifaximin [Xifaxan] 550 mg PO BID 11/30/18 Spironolactone 50 mg PO DAILY 11/30/18 ROS, Past Surgery History reviewed in chart NEUROLOGICAL EXAMINATION Alert oriented x 3, speech is normal, no neck stiffness EOMI, there is left facial asymmetry Patient is able to walk on toe and heel and slight difficulty on straight line upper extremity is left arm is slightly weaker( as per patient she has history of stroke) CT head unremarkable on Dec 03, S. NH3 is 73.6 Assesmsent /Plan 58 year old female history of poly substance abuse ( Benzo, alcohol, cocaine and heroin) patient was in rehab for benzo withdrawal and had seizure. [facility] patient need to have slow benzo withdrawal. Plan: suggest to do eeg, no need for ct head as she had recently done - clonazepam .25 mg po bid, and psych consult - increase keppra to 1 gm po bid - seizure precautions Will continue to follow Thanking you so much Duane Azul MD
--- NOTE | 2018-12-05 16:39 | HP ---
CHIEF COMPLAINT: sent from [facility] for seizures PCP: HISTORY OF PRESENT ILLNESS: Patient is a 58 year old female with a significant past medical history of substance abuse (alcohol, cocaine, heroin), CHF, epilepsy, cirrhosis, depression , Type 2 diabetes. She was sent to the ED from [facility] for seizures. She was recently discharged from [facility] on 12/01/18 for lethargy and returns to the hospital from [facility] on 12/03/18 for a fall. She had a head Ct which was negative and was sent back to [facility]. She presents today from [facility] for 4 episodes of seizures. Two were reported to be grand mal and lasting for over 1 minutes. On review of [facility] records, patient first had a grand mal seizure today at approximately 0958 a.m while in bed. This initial seizure lasted 2 minutes. After this seizure, patient seized again and the episode lasted apx 20 seconds. She reportedly had a total of 4 seizures at [facility]. En route to the hospital, she was given versed 2mg for seizure control. She received her morning dose of Keppra 500mg at [facility]. In the ED she received an additional dose of Keppra 500mg Neurology has been consulted and case discussed with Neuro. On exam, patient is more awake and alert. She admits to Klonopin abuse last week,but denies any recent use. States she usually purchases Klonopin in the street. ER Labs shows patient to have increased ammonia level of 70 and low platelets of 35. She is on on a methadone program in [place] for past few years and currently on Methadone 80mg daily. Denies fever, chills, chest pain or pressure, or changes in urinary function. ER course was notable for: (1) left lower ext edema with, rule out dvt with doppler (2) (3) Recent Travel: PAST MEDICAL HISTORY: substance abuse (alcohol, cocaine, heroin), CHF, epilepsy , cirrhosis, depression, Type 2 diabetes. Social History: Smoking: unknown Alcohol: in the past, denies current use Drugs: abuse of klonopin, on methadone program Family History: Allergies haloperidol [From Haldol] Adverse Reaction (Verified 12/05/18 11:24) HOME MEDICATIONS: Home Medications Medication Instructions Recorded Aspirin 81 mg PO DAILY 05/15/13 Insulin Regular, Human [Humulin R 8 units SQ DAILY 05/15/13 -] Furosemide [Lasix] 40 mg PO DAILY 11/30/18 Gabapentin 300 mg PO BID 11/30/18 Levetiracetam 500 mg PO BID 11/30/18 Methadone [Dolophine -] 80 mg PO DAILY 11/30/18 Quetiapine Fumarate [Seroquel] 100 mg PO DAILY 11/30/18 Rifaximin [Xifaxan] 550 mg PO BID 11/30/18 Spironolactone 50 mg PO DAILY 11/30/18 PHYSICAL EXAMINATION Vital Signs - 24 hr 12/05/18 12/05/18 10:58 16:25 Temperature 98.3 F Pulse Rate 78 Pulse Rate [ 78 Apical] Respiratory 18 16 Rate Blood Pressure 100/68 Blood Pressure 108/61 [Right Arm] O2 Sat by Pulse 99 98 Oximetry (%) GENERAL: Awake, alert, and fully oriented, in no acute distress. HEAD: Normal with no signs of trauma. EYES: Pupils equal, round and reactive to light, extraocular movements intact, sclera anicteric, conjunctiva clear. No lid lag. EARS, NOSE, THROAT: Ears normal, nares patent, oropharynx clear without exudates. Moist mucous membranes. NECK: Normal range of motion, supple without lymphadenopathy, JVD, or masses. LUNGS: Breath sounds equal, diminished to auscultation bilaterally HEART: Regular rate and rhythm ABDOMEN: Soft, nontender, not distended, obese abdomen MUSCULOSKELETAL: Normal range of motion at all joints. No bony deformities or tenderness. No CVA tenderness. UPPER EXTREMITIES: No peripheral edema. LOWER EXTREMITIES: lower ext edema, left >right, doppler ordered NEUROLOGICAL: Normal speech. gait not observed PSYCHIATRIC: Cooperative. calm SKIN: Warm, dry, normal turgor, no rashes or lesions noted, normal capillary refill. Laboratory Results - last 24 hr 12/05/18 12/05/18 12/05/18 12:20 12:20 12:20 WBC 4.1 RBC 3.69 Hgb 10.9 Hct 31.7 L MCV 85.9 MCH 29.5 MCHC 34.4 RDW 14.7 Plt Count 35 L* MPV 10.3 Absolute Neuts (auto) 2.0 Neutrophils % 48.8 Lymphocytes % 29.6 Monocytes % 15.0 H Eosinophils % 6.2 H Basophils % 0.4 Nucleated RBC % 0 Sodium 137 Potassium 3.7 Chloride 104 Carbon Dioxide 29 Anion Gap 5 L BUN 15 Creatinine 0.8 Creat Clearance w eGFR > 60 Random Glucose 57 L Calcium 8.0 L Total Bilirubin 1.2 H AST 30 ALT 20 Alkaline Phosphatase 69 Ammonia 71.56 H Total Protein 6.7 Albumin 3.2 L ASSESSMENT/PLAN: Patient is a 58 year old female with a significant past medical history of substance abuse (alcohol, cocaine, heroin), CHF, epilepsy, cirrhosis, depression , Type 2 diabetes. She was sent to the ED from [facility] for seizures. Problem List Epilepsy Substance abuse CHF Cirrhosis Thrombocytopenia anxiety/depression diabetes, type 2 Neuro: Epilepsy Seizures, uncontrolled May be secondary to benzo withdrawal will rule out infectious cause with Ua, Uc, blood cultures Keppra home dose increased to Keppra 1000mg BID Start on Klonopin 0.25mg bid and taper off Psyche: Substance abuse On Methadone 80mg daily, however has prolonged qt but unchanged from previous visit. It was recommended on last admission that patient be weaned off Methadone 2/2 and put on subaxone due to prolonged qtc Continue methadone 80mg, detox consult placed for possible start of subaxone Hold seroquel since patient was lethargic and now on klonopin Card: CHF, Chronic diastolic Monitor respiratory status Heme: Thrombocytopenia @ 35, has been this low on previous admission. thrombocytopenia likely due to liver disease No evidence of Bleeding or bruising. Continue Rifaximin. Lactulose, Lasix, Spironolactone. GI as outpatient Endocrine: Diabetes Novolog ac/hs fen tolerating po monitor electrolytes diabetic diet prophy physical therapy No a/c 2/2 to thrombocytopenia full code Visit type - Emergency Visit Emergency Visit: Yes ED Registration Date: 12/05/18 Care time: The patient presented to the Emergency Department on the above date and was hospitalized for further evaluation of their emergent condition. - New Patient This patient is new to me today: No - Critical Care Critical Care patient: No
[2018-12-05 17:49] VITALS: BMI 35.5
[2018-12-05] MEDS ORDERED: LORazepam 2 MG/ML SDV VIAL IVPUSH PRN (21:32)
[2018-12-05] MEDS ORDERED: SODIUM CHLORIDE 0.9% 500 ML INFUS.BAG IV ONE (21:36)
[2018-12-05] MEDS ORDERED: PT OWN MED DRAWER 7, Y5N ONE (21:43)
[2018-12-05] MEDS: levETIRAcetam 500 MG TABLET (FP) PO SCH (21:49)
[2018-12-05] MEDS: RIFAXIMIN 550 MG TABLET (UD) PO SCH (21:50)
[2018-12-05] MEDS: FOLIC ACID 1 MG TABLET (FP) PO SCH (21:57)
[2018-12-05] MEDS: clonazePAM 0.5 MG TABLET PO SCH (21:57)
[2018-12-05] MEDS ORDERED: levETIRAcetam 500 MG/5 ML INJECTION VIAL IVPB SCH (22:00)
[2018-12-05] MEDS ORDERED: clonazePAM 0.5 MG TABLET PO SCH (22:00)
[2018-12-05] MEDS: THIAMINE HCL 200 MG/2 ML VIAL IVPB SCH (22:08)
--- NOTE | 2018-12-05 22:19 | HOSP ---
Subjective - Review of Symptoms Events since last encounter: Called by nurse to assess patient after she experienced an seizure around 9: 25pm. Patient was noted to have rocking motion to upper body, jerky head movements, hitting self and biting down on tongue. She was physically controlled by the RN and [employer] and after 1min her seizure abated. Physical Examination Vital Signs: Vital Signs Temperature 98.5 F 12/05/18 17:27 Pulse Rate 80 12/05/18 17:27 Respiratory Rate 20 12/05/18 17:27 Blood Pressure 118/78 12/05/18 17:27 O2 Sat by Pulse Oximetry (%) 98 12/05/18 17:27 Constitutional: Yes: Well Nourished, Calm Eyes: Yes: Conjunctiva Clear, PERRL HENT: Yes: Atraumatic, Normocephalic Neck: Yes: Supple Respiratory: Yes: Regular Gastrointestinal: Yes: Soft, Abdomen, Obese Musculoskeletal: Yes: Muscle Weakness Extremities: Yes: Cool Neurological: Yes: Alert, Confusion (mild) Psychiatric: Yes: Alert Labs: CBC, BMP 12/05/18 12:20 12/05/18 12:20 Hospitalist Encounter Assessment: A/P Seizure disorder -Keppra 1GM IV now -Thiamine 200mg IVPB daily -folate 1mg daily -Nurse to give klonopin now -PRN ativan 2mg ordered -EEG with video monitoring ordered -trend Ammonia level
[2018-12-05] MEDS: INSULIN SLIDING SCALE (NOVOLOG) 1 VIAL SQ SCH (22:25)
[2018-12-06 03:10] LABS: URINE APPEARANCE CLEAR; URINE BILIRUBIN NEGATIVE (<2.0 mg/dL); URINE COLOR STRAW; URINE GLUCOSE (UA) NEGATIVE (NEGATIVE); URINE KETONE NEGATIVE (NEGATIVE); URINE LEUK ESTERASE NEGATIVE (NEGATIVE); URINE NITRITE NEGATIVE (NEGATIVE); URINE PROTEIN NEGATIVE (NEGATIVE); URINE UROBILINOGEN NEGATIVE mg/dL (0.2-1.0)
[2018-12-06 07:52] LABS: HEMATOCRIT 28.9 % (32.4-45.2); HEMOGLOBIN 10.1 GM/dL (10.7-15.3); MCH 29.8 pg (25.7-33.7); MCHC 35.2 g/dl (32.0-36.0); MEAN CELL VOLUME 84.8 fl (80-96); MEAN PLT VOLUME 10.8 fl (7.5-11.1); RDW 14.5 % (11.6-15.6); WHITE BLOOD COUNT 2.8 K/mm3 (4.0-10.0)
[2018-12-06 08:04] LABS: PLATELET COUNT 30 K/MM3 (134-434)
[2018-12-06 08:17] LABS: INR 1.28 (0.83-1.09); PROTHROMBIN TIME (PATIENT) 15.2 SEC (9.7-13.0)
[2018-12-06] MEDS: INSULIN SLIDING SCALE (NOVOLOG) 1 VIAL SQ SCH ×4 (08:22→21:32)
[2018-12-06] MEDS ORDERED: PT OWN MED DRAWER 7, Y5N ONE ×3 (09:12→23:16)
[2018-12-06] MEDS: METHADONE HCL 40 MG DISPERSABLE TABLET PO SCH (09:19)
[2018-12-06] MEDS: FUROSEMIDE 40 MG TABLET (FP) PO SCH (09:21)
[2018-12-06] MEDS: levETIRAcetam 500 MG TABLET (FP) PO SCH ×2 (09:21→21:30)
[2018-12-06] MEDS: FOLIC ACID 1 MG TABLET (FP) PO SCH (09:21)
[2018-12-06] MEDS: SPIRONOLACTONE 25 MG TABLET (FP) PO SCH (09:21)
[2018-12-06] MEDS: RIFAXIMIN 550 MG TABLET (UD) PO SCH ×2 (09:21→21:30)
[2018-12-06] MEDS: THIAMINE HCL 200 MG/2 ML VIAL IVPB SCH (09:22)
[2018-12-06] MEDS: clonazePAM 0.5 MG TABLET PO SCH ×2 (09:23→21:30)
[2018-12-06 09:28] LABS: ALBUMIN 2.9 g/dl (3.4-5.0); ALK PHOS 81 U/L (45-117); ANION GAP 5 MMOL/L (8-16); BILIRUBIN,TOTAL 0.9 mg/dL (0.2-1); BLOOD UREA NITROGEN 14 mg/dL (7-18); CHLORIDE 105 mmol/L (98-107); CO2 30 mmol/L (21-32); CREATININE 0.6 mg/dL (0.55-1.3); GLUCOSE,RANDOM 70 mg/dL (74-106); MAGNESIUM 1.8 mg/dL (1.8-2.4); POTASSIUM 4.1 mmol/L (3.5-5.1); SGOT/AST 27 U/L (15-37); SGPT/ALT 17 U/L (13-61); SODIUM 139 mmol/L (136-145); TOT PROT 6.2 g/dl (6.4-8.2)
[2018-12-06] MEDS ORDERED: ALBUTEROL SO4 2.5/IPRATROPIUM 0.5 INH SOL 3 ML VIAL.NEB. NEB PRN (09:39)
--- NOTE | 2018-12-06 09:39 | PN ---
Physical Exam: SUBJECTIVE: Patient seen and examined at the bedside. tells me she had 2 seizures overnight. no aura, but her legs begin to shake. OBJECTIVE: nursing notes reviewed and appreciated, pt had possible seizure overnight also has some petechia on left anterior leg has some bruising on upper arm mild drop of platelets @ 30 today. bleeding precautions wheezing bilaterally, start duonebs Vital Signs Period Temp Pulse Resp BP Sys/Hendrix Pulse Ox Last 24 Hr 97.6 F-98.5 F 78-83 16-22 100-126/54-82 98-99 GENERAL: Awake, alert, and fully oriented, in no acute distress. HEAD: Normal with no signs of trauma. EYES: Pupils equal, round and reactive to light, extraocular movements intact, sclera anicteric, conjunctiva clear. No lid lag. EARS, NOSE, THROAT: Ears normal, nares patent, oropharynx clear without exudates. Moist mucous membranes. NECK: Normal range of motion, supple without lymphadenopathy, JVD, or masses. LUNGS: Breath sounds equal, diminished to auscultation bilaterally HEART: Regular rate and rhythm ABDOMEN: Soft, nontender, not distended, obese abdomen MUSCULOSKELETAL: Normal range of motion at all joints. No bony deformities or tenderness. No CVA tenderness. UPPER EXTREMITIES: No peripheral edema. LOWER EXTREMITIES: lower ext edema, left >right, negative for dvt NEUROLOGICAL: Normal speech. gait not observed PSYCHIATRIC: Cooperative. calm SKIN: bruising upper arms bilateraly, left leg with small area of what appears at petechie Laboratory Results - last 24 hr 12/05/18 12/05/18 12/05/18 12:20 12:20 12:20 WBC 4.1 RBC 3.69 Hgb 10.9 Hct 31.7 L MCV 85.9 MCH 29.5 MCHC 34.4 RDW 14.7 Plt Count 35 L* MPV 10.3 Absolute Neuts (auto) 2.0 Neutrophils % 48.8 Lymphocytes % 29.6 Monocytes % 15.0 H Eosinophils % 6.2 H Basophils % 0.4 Nucleated RBC % 0 PT with INR INR Sodium 137 Potassium 3.7 Chloride 104 Carbon Dioxide 29 Anion Gap 5 L BUN 15 Creatinine 0.8 Creat Clearance w eGFR > 60 POC Glucometer Random Glucose 57 L Calcium 8.0 L Magnesium Total Bilirubin 1.2 H AST 30 ALT 20 Alkaline Phosphatase 69 Ammonia 71.56 H Total Protein 6.7 Albumin 3.2 L Urine Color Urine Appearance Urine pH Ur Specific [place] Urine Protein Urine Glucose (UA) Urine Ketones Urine Blood Urine Nitrite Urine Bilirubin Urine Urobilinogen Ur Leukocyte Esterase 12/06/18 12/06/18 12/06/18 02:50 06:40 06:40 WBC 2.8 L RBC 3.40 L Hgb 10.1 L Hct 28.9 L MCV 84.8 MCH 29.8 MCHC 35.2 RDW 14.5 Plt Count 30 L* MPV 10.8 Absolute Neuts (auto) Neutrophils % Lymphocytes % Monocytes % Eosinophils % Basophils % Nucleated RBC % PT with INR 15.20 H INR 1.28 H Sodium Potassium Chloride Carbon Dioxide Anion Gap BUN Creatinine Creat Clearance w eGFR POC Glucometer Random Glucose Calcium Magnesium Total Bilirubin AST ALT Alkaline Phosphatase Ammonia Total Protein Albumin Urine Color Straw Urine Appearance Clear Urine pH 6.0 Ur Specific [place] 1.004 L Urine Protein Negative Urine Glucose (UA) Negative Urine Ketones Negative Urine Blood Negative Urine Nitrite Negative Urine Bilirubin Negative Urine Urobilinogen Negative Ur Leukocyte Esterase Negative 12/06/18 12/06/18 12/06/18 06:40 06:40 06:59 WBC RBC Hgb Hct MCV MCH MCHC RDW Plt Count MPV Absolute Neuts (auto) Neutrophils % Lymphocytes % Monocytes % Eosinophils % Basophils % Nucleated RBC % PT with INR INR Sodium 139 Potassium 4.1 Chloride 105 Carbon Dioxide 30 Anion Gap 5 L BUN 14 Creatinine 0.6 Creat Clearance w eGFR > 60 POC Glucometer 72 Random Glucose 70 L Calcium 8.0 L Magnesium 1.8 Total Bilirubin 0.9 AST 27 ALT 17 Alkaline Phosphatase 81 Ammonia 57.60 H Total Protein 6.2 L Albumin 2.9 L Urine Color Urine Appearance Urine pH Ur Specific [place] Urine Protein Urine Glucose (UA) Urine Ketones Urine Blood Urine Nitrite Urine Bilirubin Urine Urobilinogen Ur Leukocyte Esterase Active Medications Generic Name Dose Route Start Last Admin Trade Name Freq PRN Reason Stop Dose Admin Clonazepam 0.25 mg 12/05/18 22:00 12/06/18 09:23 Klonopin - PO 0.25 mg BID CJ Administration Folic Acid 1 mg 12/05/18 21:45 12/06/18 09:21 Folic Acid - PO 1 mg DAILY CJ Administration Furosemide 40 mg 12/06/18 10:00 12/06/18 09:21 Lasix - PO 40 mg DAILY CJ Administration Insulin Aspart 1 vial 12/05/18 22:00 12/06/18 08:22 Novolog Vial Sliding Scale - SQ Not Given ACHS [facility] Protocol Lactulose 20 gm 12/05/18 16:37 Cephulac (Oral Use) PO TID PRN CONSTIPATION Levetiracetam 1,000 mg 12/05/18 22:00 12/06/18 09:21 Keppra - PO 1,000 mg BID CJ Administration Lorazepam 2 mg 12/05/18 21:32 Ativan Injection - IVPUSH 12/06/18 21:31 ONCE PRN SEIZURE Methadone HCl 80 mg 12/06/18 09:00 12/06/18 09:19 Dolophine - PO 80 mg DAILY@0600 CJ Administration Rifaximin 550 mg 12/05/18 22:00 12/06/18 09:21 Xifaxan - PO 550 mg BID CJ Administration Spironolactone 50 mg 12/06/18 10:00 12/06/18 09:21 Aldactone - PO 50 mg DAILY CJ Administration Thiamine HCl 200 mg 12/05/18 21:45 12/06/18 09:22 Vitamin B1 Injection - IVPB 200 mg DAILY CJ Administration ASSESSMENT/PLAN: Patient is a 58 year old female with a significant past medical history of substance abuse (alcohol, cocaine, heroin), CHF, epilepsy, cirrhosis, depression , Type 2 diabetes and asthma. She was sent to the ED from [facility] for seizures. Problem List Epilepsy Substance abuse CHF Cirrhosis Thrombocytopenia anxiety/depression diabetes, type 2 Neuro: Epilepsy Seizures, uncontrolled May be secondary to benzo withdrawal will rule out infectious cause with Ua, Uc, blood cultures - not yet collected. Keppra home dose increased to Keppra 1000mg BID Start on Klonopin 0.25mg bid and taper off as tolerated. was given extra dose of klonopin overnight for w/drawal seizure. Psyche: Substance abuse On Methadone 80mg daily, however has prolonged qt but unchanged from previous visit. It was recommended on last admission that patient be weaned off Methadone 2/2 and put on subaxone due to prolonged qtc Continue methadone 80mg, detox consult placed for possible start of subaxone Hold seroquel since patient was lethargic and now on klonopin Card: CHF, Chronic diastolic Monitor respiratory status Pulm: Asthma some wheezing today start on duonebs Monitor oxygen levels, which are currently stable Heme: Thrombocytopenia @ 30, has been this low on previous admissions. thrombocytopenia likely due to liver disease, will ask heme to evaluate for further recommendations. Bruisng on upper arms bilaterally and left anterior leg with small area of petechia. Continue Rifaximin. Lactulose, Lasix, Spironolactone. GI as outpatient once acute issues resolved. Endocrine: Diabetes Novolog ac/hs fen tolerating po monitor electrolytes diabetic diet prophy physical therapy No a/c 2/2 to thrombocytopenia full code Visit type - Emergency Visit Emergency Visit: Yes ED Registration Date: 12/05/18 Care time: The patient presented to the Emergency Department on the above date and was hospitalized for further evaluation of their emergent condition. - New Patient This patient is new to me today: No - Critical Care Critical Care patient: No - Discharge Referral Referred to [facility] Med P.C.: No
[2018-12-06] MEDS ORDERED: QUEtiapine FUMARATE 100 MG TABLET (FP) PO SCH (10:00)
[2018-12-06] MEDS ORDERED: INSULIN (NOVOLOG) ASPART 100 UNITS/ML 10ML VIAL ONE ×2 (11:04→21:03)
[2018-12-06 18:09] LABS: URINE APPEARANCE CLEAR; URINE BILIRUBIN NEGATIVE (<2.0 mg/dL); URINE COLOR STRAW; URINE GLUCOSE (UA) NEGATIVE (NEGATIVE); URINE KETONE NEGATIVE (NEGATIVE); URINE LEUK ESTERASE NEGATIVE (NEGATIVE); URINE NITRITE NEGATIVE (NEGATIVE); URINE PROTEIN NEGATIVE (NEGATIVE); URINE UROBILINOGEN NEGATIVE mg/dL (0.2-1.0)
--- NOTE | 2018-12-06 19:03 | PN ---
Progress Note (short form) - Note Progress Note: 58 year old female histoy of Polysubstance abuse ( benzo, occaine, heroin, ETOH) , Epilepsy for one year, cirrhosis, depression, DM. Patient was here at hospital for fall and lethargy, and later sent to Drug rehab. Patient has negative ct head. Apparently she was not on any benzo. Patient had four episode of seizure , generalized tonic clonic activity. She LOC, There was no tongue bite. But patient do get tongue bite. She was on keppra 500 mg po bid and neurontin 300 mg po bid. According to Rehab notes, she was in DTs and having aduditory hallucinations. She is also on methadone . She has low platelet due to liver disease. Patient has one episode of ? seizure. It was discribed as moving her head side ways and trying to bite her thumb between her teeth . She was given klonapin and ativan prn NEUROLOGICAL EXAMINATION Alert oriented x 3, speech is normal, no neck stiffness EOMI, there is left facial asymmetry Patient is able to walk on toe and heel and slight difficulty on straight line upper extremity is left arm is slightly weaker( as per patient she has history of stroke) CT head unremarkable on Dec 3, S. NH3 is 73.6 Assesmsent /Plan 58 year old female history of poly substance abuse ( Benzo, alcohol, cocaine and heroin) patient was in rehab for benzo withdrawal and had seizure. She has one atypical seizure on dec 5, at floor. It is not clear if this was epileptic seizure. Plan: eeg, if she continue to have episode, she may need video/eeg consult - continue clonazepam .25 mg po bid, and awaiting psych consult - continue keppra to 1 gm po bid - seizure precautions Will continue to follow Thanking you so much Duane Azul MD
--- NOTE | 2018-12-06 19:24 | PN ---
Progress Note (short form) - Note Progress Note: Patient seen and examined 58 year old with polysubstance abuse presents with seizures. Hx of cirrhosis, DT's , DM. seizure disorder . On methadone maintenance. Last Vital Signs Temp Pulse Resp BP Pulse Ox 97.8 F 68 18 112/60 96 12/06/18 14:00 12/06/18 14:00 12/06/18 14:00 12/06/18 14:00 12/06/18 09:15 HEENT: CIRA, EOM Intact; left ptosis Oropharynx: No thrush, No mucositis, upper denture, lower edentulous Neck: Supple Nodes: Without adenopathy Breasts: Without masses Cor: RSR, No murmurs, No gallops Lungs: Clear to P&A Abd: Soft, Normal bowel sounds, No organomegaly Ext:No significant edema Skin: No rashes, Integument intact CBC, BMP 12/06/18 06:40 12/06/18 06:40 Current Medications Generic Name Dose Route Start Last Admin Trade Name Freq PRN Reason Stop Dose Admin Albuterol/Ipratropium 1 amp 12/06/18 09:39 12/06/18 11:35 Duoneb - NEB 1 amp Q6H PRN Administration SHORTNESS OF BREATH Clonazepam 0.25 mg 12/05/18 22:00 12/06/18 09:23 Klonopin - PO 0.25 mg BID CJ Administration Folic Acid 1 mg 12/05/18 21:45 12/06/18 09:21 Folic Acid - PO 1 mg DAILY CJ Administration Furosemide 40 mg 12/06/18 10:00 12/06/18 09:21 Lasix - PO 40 mg DAILY CJ Administration Insulin Aspart 1 vial 12/05/18 22:00 12/06/18 17:30 Novolog Vial Sliding Scale - SQ Not Given ACHS CJ Protocol Lactulose 20 gm 12/05/18 16:37 Cephulac (Oral Use) PO TID PRN CONSTIPATION Levetiracetam 1,000 mg 12/05/18 22:00 12/06/18 09:21 Keppra - PO 1,000 mg BID CJ Administration Lorazepam 2 mg 12/05/18 21:32 Ativan Injection - IVPUSH 12/06/18 21:31 ONCE PRN SEIZURE Methadone HCl 80 mg 12/06/18 09:00 02/06/19 09:19 Dolophine - PO 80 mg DAILY@0600 CJ Administration Rifaximin 550 mg 12/05/18 22:00 12/06/18 09:21 Xifaxan - PO 550 mg BID CJ Administration Spironolactone 50 mg 12/06/18 10:00 12/06/18 09:21 Aldactone - PO 50 mg DAILY CJ Administration Thiamine HCl 200 mg 12/05/18 21:45 12/06/18 09:22 Vitamin B1 Injection - IVPB 200 mg DAILY CJ Administration INR, PTT INR 1.28 (0.83-1.09) H 12/06/18 06:40 Impression: Polysubstance abuse cirrhosis Seizure disorder Pancytopenia DM Suspect liver disease is underlying etiology of pancytopenia. Normal B-12 and folate. To check TFT's and proteins. To obtain CT ABDOMEN.
--- NOTE | 2018-12-06 23:54 | CONS ---
DATE OF CONSULTATION: 12/06/2018 HISTORY OF PRESENT ILLNESS: This is a 58-year-old female being seen for evaluation and thrombocytopenia. PAST HISTORY: Includes that of polysubstance abuse including alcohol, cocaine, and heroin. Most recently Klonopin. Patient presented with seizures. There is additional history of cirrhosis. There is a history of liver disorder. There is a history of epilepsy. There is a history of diabetes. Patient does not recall ever being told that she has a problem with her blood. The patient denies smoking, drinking. She is on methadone. ALLERGIES: Include HALOPERIDOL. HOME MEDICINES: Include insulin, Lasix, gabapentin, Keppra, methadone, Seroquel, rifaximin, and Aldactone. REVIEW OF SYSTEMS: Patient states she has headaches, no diplopia, some blurry vision, no epistaxis, no dysphagia, no shortness of breath, chest pain. No nausea, vomiting. Does complain of constipation. No dysuria. Continues to have menses. Does complain of numbness and tingling of the lower extremities. CURRENT MEDICINES IN THE HOSPITAL: Include lactulose for elevated blood ammonia, rifaximin, Keppra, Klonopin, Ativan, DuoNeb, insulin, Lasix, Aldactone, methadone, folate, thiamine. Patient has had recent DTs as well. CURRENT PHYSICAL EXAMINATION: VITAL SIGNS: Blood pressure 112/60, pulse 68, respiratory rate 18, afebrile. HEENT: Left ptosis. Pupils reactive. Upper bite plate, edentulous lower. Tongue papillated. NECK: Supple. LUNGS: Relatively clear, scattered rhonchi. CARDIAC: Regular rhythm. BREAST: No dominant masses. ABDOMEN: Soft, no definite organomegaly. Obese. EXTREMITIES: No significant edema. LABORATORY: WBC 4.1 and 2.8, hematocrit 31 and 28, normal indices, platelets 35 and 30. Neutrophils 48, lymphocytes 29, monocytes 15. INR 1.28. Chemistries: sodium 139, potassium 4.1, chloride 105, CO2 of 30, AST 27, ALT 17, alkaline phosphatase 81, ammonia 57, protein 6.2, albumin 2.9, B12 696, folate 24. Chest x-ray, elevated right hemidiaphragm. Poor inspiration, large heart, unfolded aorta. Fullness of the left hilum with congestive changes. IMPRESSION: This 58-year-old female has a history of polysubstance abuse. She has a history of cirrhosis. She has pancytopenia. Pancytopenia likely secondary to chronic liver disease. Would obtain a CT scan of the abdomen and pelvis to look at liver and spleen to see if there is a component of hyposplenism. Denies recent alcohol abuse. Denies recent illicit drugs. B12, folate are normal. Will order thyroid function. Will order protein studies. KWESI SORTO M.D. HOLLIE/[id number]
[2018-12-07] MEDS: INSULIN SLIDING SCALE (NOVOLOG) 1 VIAL SQ SCH ×4 (06:19→21:53)
[2018-12-07] MEDS: METHADONE HCL 40 MG DISPERSABLE TABLET PO SCH (06:19)
[2018-12-07 09:12] LABS: BASO % 0.3 % (0-2.0); EOS % 9.7 % (0-4.5); HEMATOCRIT 32.6 % (32.4-45.2); HEMOGLOBIN 11.1 GM/dL (10.7-15.3); LYMPH % 32.5 % (8-40); MCHC 34.1 g/dl (32.0-36.0); MEAN CELL VOLUME 85.1 fl (80-96); MEAN PLT VOLUME 11.5 fl (7.5-11.1); MONO % 10.7 % (3.8-10.2); NEUT % 46.8 % (42.8-82.8); PLATELET COUNT 39 K/MM3 (134-434); RBC 3.83 M/mm3 (3.60-5.2); RDW 14.7 % (11.6-15.6); WHITE BLOOD COUNT 4.2 K/mm3 (4.0-10.0)
[2018-12-07] MEDS: clonazePAM 0.5 MG TABLET PO SCH ×2 (09:24→21:51)
[2018-12-07] MEDS: levETIRAcetam 500 MG TABLET (FP) PO SCH ×2 (09:24→21:50)
[2018-12-07] MEDS: FUROSEMIDE 40 MG TABLET (FP) PO SCH (09:25)
[2018-12-07] MEDS: FOLIC ACID 1 MG TABLET (FP) PO SCH (09:25)
[2018-12-07] MEDS: SPIRONOLACTONE 25 MG TABLET (FP) PO SCH (09:25)
[2018-12-07 09:50] LABS: ALBUMIN 3.5 g/dl (3.4-5.0); ALK PHOS 79 U/L (45-117); ANION GAP 5 MMOL/L (8-16); BILIRUBIN,TOTAL 0.8 mg/dL (0.2-1); BLOOD UREA NITROGEN 13 mg/dL (7-18); CALCIUM 8.6 mg/dL (8.5-10.1); CHLORIDE 105 mmol/L (98-107); CO2 28 mmol/L (21-32); CREATININE 0.7 mg/dL (0.55-1.3); GLUCOSE,RANDOM 81 mg/dL (74-106); POTASSIUM 4.3 mmol/L (3.5-5.1); SGOT/AST 30 U/L (15-37); SGPT/ALT 20 U/L (13-61); SODIUM 138 mmol/L (136-145); TOT PROT 7.2 g/dl (6.4-8.2)
[2018-12-07] MEDS: RIFAXIMIN 550 MG TABLET (UD) PO SCH ×2 (10:04→21:50)
[2018-12-07] MEDS: THIAMINE HCL 200 MG/2 ML VIAL IVPB SCH (10:05)
--- NOTE | 2018-12-07 14:19 | PN ---
Physical Exam: SUBJECTIVE: Patient seen and examined at the bedside. no seizures overnight, feels better. OBJECTIVE: Vital Signs Period Temp Pulse Resp BP Sys/Hendrix Pulse Ox Last 24 Hr 98.3 F-98.4 F 64-70 18-18 106-116/61-67 98 GENERAL: Awake, alert, and fully oriented, in no acute distress. HEAD: Normal with no signs of trauma. EYES: Pupils equal, round and reactive to light, extraocular movements intact, sclera anicteric, conjunctiva clear. No lid lag. EARS, NOSE, THROAT: Ears normal, nares patent, oropharynx clear without exudates. Moist mucous membranes. NECK: Normal range of motion, supple without lymphadenopathy, JVD, or masses. LUNGS: Breath sounds equal, diminished to auscultation bilaterally HEART: Regular rate and rhythm ABDOMEN: Soft, nontender, not distended, obese abdomen MUSCULOSKELETAL: Normal range of motion at all joints. No bony deformities or tenderness. No CVA tenderness. UPPER EXTREMITIES: No peripheral edema. LOWER EXTREMITIES: lower ext edema, left >right, negative for dvt NEUROLOGICAL: Normal speech. gait not observed PSYCHIATRIC: Cooperative. calm SKIN: bruising upper arms bilateraly Laboratory Results - last 24 hr 12/06/18 12/06/18 12/07/18 17:00 17:24 08:00 WBC 4.2 RBC 3.83 Hgb 11.1 Hct 32.6 MCV 85.1 MCH 29.0 MCHC 34.1 RDW 14.7 Plt Count 39 L D MPV 11.5 H Absolute Neuts (auto) 2.0 Neutrophils % 46.8 Lymphocytes % 32.5 Monocytes % 10.7 H Eosinophils % 9.7 H Basophils % 0.3 Nucleated RBC % 0 Sodium Potassium Chloride Carbon Dioxide Anion Gap BUN Creatinine Creat Clearance w eGFR POC Glucometer 111 Random Glucose Calcium Total Bilirubin AST ALT Alkaline Phosphatase Ammonia Total Protein Albumin TSH Urine Color Straw Urine Appearance Clear Urine pH 7.0 Ur Specific [place] 1.005 L Urine Protein Negative Urine Glucose (UA) Negative Urine Ketones Negative Urine Blood Negative Urine Nitrite Negative Urine Bilirubin Negative Urine Urobilinogen Negative Ur Leukocyte Esterase Negative 12/07/18 12/07/18 12/07/18 08:00 11:28 11:30 WBC RBC Hgb Hct MCV MCH MCHC RDW Plt Count MPV Absolute Neuts (auto) Neutrophils % Lymphocytes % Monocytes % Eosinophils % Basophils % Nucleated RBC % Sodium 138 Potassium 4.3 Chloride 105 Carbon Dioxide 28 Anion Gap 5 L BUN 13 Creatinine 0.7 Creat Clearance w eGFR > 60 POC Glucometer 90 Random Glucose 81 Calcium 8.6 Total Bilirubin 0.8 AST 30 ALT 20 Alkaline Phosphatase 79 Ammonia 38.19 H Total Protein 7.2 Albumin 3.5 TSH 4.28 H Urine Color Urine Appearance Urine pH Ur Specific [place] Urine Protein Urine Glucose (UA) Urine Ketones Urine Blood Urine Nitrite Urine Bilirubin Urine Urobilinogen Ur Leukocyte Esterase Active Medications Generic Name Dose Route Start Last Admin Trade Name Matt PRN Reason Stop Dose Admin Albuterol/Ipratropium 1 amp 12/06/18 09:39 12/06/18 11:35 Duoneb - NEB 1 amp Q6H PRN Administration SHORTNESS OF BREATH Clonazepam 0.25 mg 12/05/18 22:00 12/07/18 09:24 Klonopin - PO 0.25 mg BID CJ Administration Folic Acid 1 mg 12/05/18 21:45 12/07/18 09:25 Folic Acid - PO 1 mg DAILY CJ Administration Furosemide 40 mg 12/06/18 10:00 12/07/18 09:25 Lasix - PO 40 mg DAILY CJ Administration Insulin Aspart 1 vial 12/05/18 22:00 12/07/18 12:30 Novolog Vial Sliding Scale - SQ Not Given ACHS [facility] Protocol Lactulose 20 gm 12/05/18 16:37 12/07/18 09:25 Cephulac (Oral Use) PO 20 gm TID PRN Administration CONSTIPATION Levetiracetam 1,000 mg 12/05/18 22:00 12/07/18 09:24 Keppra - PO 1,000 mg BID JC Administration Methadone HCl 80 mg 12/06/18 09:00 12/07/18 06:19 Dolophine - PO 80 mg DAILY@0600 CJ Administration Rifaximin 550 mg 12/05/18 22:00 12/07/18 10:04 Xifaxan - PO 550 mg BID CJ Administration Spironolactone 50 mg 12/06/18 10:00 12/07/18 09:25 Aldactone - PO 50 mg DAILY CJ Administration Thiamine HCl 200 mg 12/05/18 21:45 12/07/18 10:05 Vitamin B1 Injection - IVPB 200 mg DAILY CJ Administration ASSESSMENT/PLAN: Patient is a 58 year old female with a significant past medical history of substance abuse (alcohol, cocaine, heroin), CHF, epilepsy, cirrhosis, depression , Type 2 diabetes and asthma. She was sent to the ED from [facility] for seizures. Imagin12/07/2018: Abd/Pelvic CT shows nodular hepatomegaly with a fatty liver. left lobe hypertrophy. multiple varicies consistent with cirrhosis and portal hypertension. Marked splenomegaly. Nodules of the left lung a 9mm nodule can be evaluated with a PET scan. Problem List Epilepsy Substance abuse CHF Cirrhosis Thrombocytopenia anxiety/depression diabetes, type 2 Neuro: Epilepsy Seizures. Presented with four seizures from [facility] Seizures may be secondary to benzo withdrawal UA negative, UC pending, blood cultures negative x 24 hours Keppra home dose increased to Keppra 1000mg BID EEG normal Start on Klonopin 0.25mg bid and taper off as tolerated. Await psyche consult Psyche: Substance abuse On Methadone 80mg daily, however has prolonged qt but unchanged from previous visit. It was recommended on last admission that patient be weaned off Methadone 2/2 and put on subaxone due to prolonged qtc Continue methadone 80mg, detox consult placed for possible start of subaxone Hold seroquel since patient was lethargic and now on klonopin Card: CHF, Chronic diastolic Monitor respiratory status Pulm: Asthma, stable Heme: Thrombocytopenia @ 39, has been this low on previous admissions. Abd/pelvis ct with nodular hepatomegaly with a fatty liver. left lobe hypertrophy. multiple varicies consistent with cirrhosis and portal hypertension. marked splenomegaly. Nodules of the left lung a 9mm nodule can be evaluated with a PET scan. Continue Rifaximin. Lactulose, Lasix, Spironolactone. GI as outpatient once acute issues resolve Endocrine: Diabetes Novolog ac/hs fen tolerating po monitor electrolytes diabetic diet prophy physical therapy No a/c 2/2 to thrombocytopenia Visit type - Emergency Visit Emergency Visit: Yes ED Registration Date: 12/05/18 Care time: The patient presented to the Emergency Department on the above date and was hospitalized for further evaluation of their emergent condition. - New Patient This patient is new to me today: No - Critical Care Critical Care patient: No - Discharge Referral Referred to [facility] Med P.C.: No
--- NOTE | 2018-12-07 17:48 | PN ---
Progress Note (short form) - Note Progress Note: 58 year old female histoy of Polysubstance abuse ( benzo, occaine, heroin, ETOH) , Epilepsy for one year, cirrhosis, depression, DM. Patient was here at hospital for fall and lethargy, and later sent to Drug rehab. Patient has negative ct head. Apparently she was not on any benzo. Patient had four episode of seizure , generalized tonic clonic activity. She LOC, There was no tongue bite. But patient do get tongue bite. She was on keppra 500 mg po bid and neurontin 300 mg po bid. According to Rehab notes, she was in DTs and having aduditory hallucinations. She is also on methadone . She has low platelet due to liver disease. Patient has one episode of ? seizure. It was discribed as moving her head side ways and trying to bite her thumb between her teeth . She was given klonapin and ativan prn no seizure in last 24 hours. NEUROLOGICAL EXAMINATION Alert oriented x 3, speech is normal, no neck stiffness EOMI, there is left facial asymmetry Patient is able to walk on toe and heel and slight difficulty on straight line upper extremity is left arm is slightly weaker( as per patient she has history of stroke) CT head unremarkable on Feb 3, S. NH3 is 73.6, EEG is normal Assesmsent /Plan 58 year old female history of poly substance abuse ( Benzo, alcohol, cocaine and heroin) patient was in rehab for benzo withdrawal and had seizure. She has one atypical seizure on b 5, at floor. It is not clear if this was epileptic seizure. No seizure since dec 6. Plan if she continue to have episode, she may need video/eeg consult - continue clonazepam .25 mg po bid, and awaiting psych consult - continue keppra to 1 gm po bid - seizure precautions waiting for psych consult Will continue to follow Thanking you so much Duane Azul MD
[2018-12-07] MEDS ORDERED: PT OWN MED DRAWER 7, Y5N ONE (21:16)
[2018-12-07] MEDS: LACTULOSE 20 GM/30 ML UDC (FOR ORAL USE ONLY) PO SCH (21:50)
[2018-12-08] MEDS: METHADONE HCL 40 MG DISPERSABLE TABLET PO SCH (05:17)
[2018-12-08] MEDS: INSULIN SLIDING SCALE (NOVOLOG) 1 VIAL SQ SCH ×4 (06:19→22:09)
[2018-12-08] MEDS ORDERED: ACETAMINOPHEN 325 MG TABLET (FP) PO ONE (06:39)
[2018-12-08 07:15] LABS: BASO % 0.3 % (0-2.0); EOS % 10.8 % (0-4.5); HEMATOCRIT 33.2 % (32.4-45.2); HEMOGLOBIN 11.2 GM/dL (10.7-15.3); LYMPH % 30.7 % (8-40); MCH 28.8 pg (25.7-33.7); MCHC 33.9 g/dl (32.0-36.0); MEAN CELL VOLUME 84.9 fl (80-96); MEAN PLT VOLUME 10.4 fl (7.5-11.1); MONO % 12.4 % (3.8-10.2); NEUT % 45.8 % (42.8-82.8); RBC 3.91 M/mm3 (3.60-5.2); RDW 14.6 % (11.6-15.6); WHITE BLOOD COUNT 3.8 K/mm3 (4.0-10.0)
[2018-12-08 07:20] LABS: PLATELET COUNT 35 K/MM3 (134-434)
[2018-12-08 07:55] LABS: ALBUMIN 3.3 g/dl (3.4-5.0); ALK PHOS 64 U/L (45-117); ANION GAP 4 MMOL/L (8-16); BILIRUBIN,TOTAL 1.1 mg/dL (0.2-1); BLOOD UREA NITROGEN 13 mg/dL (7-18); CALCIUM 8.5 mg/dL (8.5-10.1); CHLORIDE 101 mmol/L (98-107); CO2 30 mmol/L (21-32); CREATININE 0.8 mg/dL (0.55-1.3); GLUCOSE,RANDOM 102 mg/dL (74-106); POTASSIUM 4.2 mmol/L (3.5-5.1); SGOT/AST 28 U/L (15-37); SGPT/ALT 21 U/L (13-61); SODIUM 135 mmol/L (136-145)
--- NOTE | 2018-12-08 09:46 | PN ---
Physical Exam: SUBJECTIVE: Patient seen and examined at the bedside. In no acute distress. No aura, no headaches, no seizures. OBJECTIVE: Patient for discharge Tuesday back to [facility] rehab, but will need to be weaned off the benzos Have decreased it to daily dosing til Tuesday, then will discontinue for anticipation of discharge on Tuesday. Vital Signs Period Temp Pulse Resp BP Sys/Hendrix Pulse Ox Last 24 Hr 98.2 F-98.6 F 76-76 20-20 120-141/67-75 98 GENERAL: Awake, alert, and fully oriented, in no acute distress. HEAD: Normal with no signs of trauma. EYES: Pupils equal, round and reactive to light, extraocular movements intact, sclera anicteric, conjunctiva clear. No lid lag. EARS, NOSE, THROAT: Ears normal, nares patent, oropharynx clear without exudates. Moist mucous membranes. NECK: Normal range of motion, supple without lymphadenopathy, JVD, or masses. LUNGS: Breath sounds equal, diminished to auscultation bilaterally HEART: Regular rate and rhythm ABDOMEN: Soft, nontender, not distended, obese abdomen MUSCULOSKELETAL: Normal range of motion at all joints. No bony deformities or tenderness. No CVA tenderness. UPPER EXTREMITIES: No peripheral edema. LOWER EXTREMITIES: lower ext edema, left >right, negative for dvt NEUROLOGICAL: Normal speech. gait not observed PSYCHIATRIC: Cooperative. calm SKIN: bruising upper arms bilaterally Laboratory Results - last 24 hr 12/05/18 12/07/18 12/07/18 12:20 08:00 11:28 WBC RBC Hgb Hct MCV MCH MCHC RDW Plt Count MPV Absolute Neuts (auto) Neutrophils % Lymphocytes % Monocytes % Eosinophils % Basophils % Nucleated RBC % Sodium 138 Potassium 4.3 Chloride 105 Carbon Dioxide 28 Anion Gap 5 L BUN 13 Creatinine 0.7 Creat Clearance w eGFR > 60 POC Glucometer 90 Random Glucose 81 Calcium 8.6 Magnesium Total Bilirubin 0.8 AST 30 ALT 20 Alkaline Phosphatase 79 Ammonia Total Protein 7.2 Albumin 3.5 TSH 4.28 H Levetiracetam 28.0 12/07/18 12/08/18 12/08/18 11:30 05:23 06:20 WBC 3.8 L RBC 3.91 Hgb 11.2 Hct 33.2 MCV 84.9 MCH 28.8 MCHC 33.9 RDW 14.6 Plt Count 35 L* MPV 10.4 Absolute Neuts (auto) 1.8 Neutrophils % 45.8 Lymphocytes % 30.7 Monocytes % 12.4 H Eosinophils % 10.8 H Basophils % 0.3 Nucleated RBC % 0 Sodium Potassium Chloride Carbon Dioxide Anion Gap BUN Creatinine Creat Clearance w eGFR POC Glucometer 95 Random Glucose Calcium Magnesium Total Bilirubin AST ALT Alkaline Phosphatase Ammonia 38.19 H Total Protein Albumin TSH Levetiracetam 12/08/18 06:20 WBC RBC Hgb Hct MCV MCH MCHC RDW Plt Count MPV Absolute Neuts (auto) Neutrophils % Lymphocytes % Monocytes % Eosinophils % Basophils % Nucleated RBC % Sodium 135 L Potassium 4.2 Chloride 101 Carbon Dioxide 30 Anion Gap 4 L BUN 13 Creatinine 0.8 Creat Clearance w eGFR > 60 POC Glucometer Random Glucose 102 Calcium 8.5 Magnesium 2.0 Total Bilirubin 1.1 H AST 28 ALT 21 Alkaline Phosphatase 64 Ammonia Total Protein 7.0 Albumin 3.3 L TSH Levetiracetam Active Medications Generic Name Dose Route Start Last Admin Trade Name Freq PRN Reason Stop Dose Admin Albuterol/Ipratropium 1 amp 12/06/18 09:39 12/06/18 11:35 Duoneb - NEB 1 amp Q6H PRN Administration SHORTNESS OF BREATH Clonazepam 0.25 mg 12/05/18 22:00 12/07/18 21:51 Klonopin - PO 0.25 mg BID CJ Administration Folic Acid 1 mg 12/05/18 21:45 12/07/18 09:25 Folic Acid - PO 1 mg DAILY CJ Administration Furosemide 40 mg 12/06/18 10:00 12/07/18 09:25 Lasix - PO 40 mg DAILY CJ Administration Insulin Aspart 1 vial 12/05/18 22:00 12/08/18 06:19 Novolog Vial Sliding Scale - SQ Not Given ACHS [facility] Protocol Lactulose 20 gm 12/07/18 22:00 12/07/18 21:50 Cephulac (Oral Use) PO 20 gm BID CJ Administration Levetiracetam 1,000 mg 12/05/18 22:00 12/07/18 21:50 Keppra - PO 1,000 mg BID CJ Administration Methadone HCl 80 mg 12/06/18 09:00 12/08/18 05:17 Dolophine - PO 80 mg DAILY@0600 CJ Administration Rifaximin 550 mg 12/05/18 22:00 12/07/18 21:50 Xifaxan - PO 550 mg BID CJ Administration Spironolactone 50 mg 12/06/18 10:00 12/07/18 09:25 Aldactone - PO 50 mg DAILY CJ Administration Thiamine HCl 200 mg 12/05/18 21:45 12/07/18 10:05 Vitamin B1 Injection - IVPB 200 mg DAILY CJ Administration ASSESSMENT/PLAN: Patient is a 58 year old female with a significant past medical history of substance abuse (alcohol, cocaine, heroin), CHF, epilepsy, cirrhosis, depression , Type 2 diabetes and asthma. She was sent to the ED from [facility] for seizures. Patient had a total of 4 seizures at [facility], and sent to [facility] for further evaluation. It was felt that the seizures were due to benzo withdrawals and she has been put on Klonopin BID low dose. Keppra home dose was increased from 500mg BID to 1000mg BID. Imagin12/07/2018: Abd/Pelvic CT shows nodular hepatomegaly with a fatty liver. left lobe hypertrophy. multiple varicies consistent with cirrhosis and portal hypertension. Marked splenomegaly. Nodules of the left lung a 9mm nodule can be evaluated with a PET scan. Problem List Epilepsy Substance abuse CHF Cirrhosis Thrombocytopenia anxiety/depression diabetes, type 2 Neuro: Epilepsy/ Seizures. Presented with four seizures from [facility]. Had one seizure on December 05 while inpatient, none since Seizures may be secondary to benzo withdrawal On Keppra 1000mg BID, Gabapentin 300mg bid restarted. Low dose Benzo with slow taper EEG normal UA, UC BC negative Reduce Klonopin 0.25mg to daily dosing and discontinue it on Tuesday. Await psyche consult Psyche: Substance abuse On Methadone 80mg daily, however has prolonged qt but unchanged from previous visit. It was recommended on last admission that patient be weaned off Methadone 2/2 and put on subaxone due to prolonged qtc Continue methadone 80mg, detox consult placed for possible start of subaxone Hold seroquel since patient was lethargic and now on klonopin Card: CHF, Chronic diastolic Monitor respiratory status Pulm: Asthma, stable Heme: Thrombocytopenia @ 39, has been this low on previous admissions. Abd/pelvis ct with nodular hepatomegaly with a fatty liver. left lobe hypertrophy. multiple varicies consistent with cirrhosis and portal hypertension. marked splenomegaly. Nodules of the left lung a 9mm nodule can be evaluated with a PET scan. Continue Rifaximin. Lactulose, Lasix, Spironolactone. GI as outpatient once acute issues resolve Endocrine: Diabetes Novolog ac/hs fen tolerating po monitor electrolytes diabetic diet prophy physical therapy No a/c 2/2 to thrombocytopenia Visit type - Emergency Visit Emergency Visit: Yes ED Registration Date: 12/05/18 Care time: The patient presented to the Emergency Department on the above date and was hospitalized for further evaluation of their emergent condition. - New Patient This patient is new to me today: No - Critical Care Critical Care patient: No - Discharge Referral Referred to [facility] Med P.C.: No
[2018-12-08] MEDS ORDERED: PT OWN MED DRAWER 7, Y5N ONE ×2 (10:49→20:53)
[2018-12-08] MEDS: FUROSEMIDE 40 MG TABLET (FP) PO SCH (10:53)
[2018-12-08] MEDS: FOLIC ACID 1 MG TABLET (FP) PO SCH (10:53)
[2018-12-08] MEDS: clonazePAM 0.5 MG TABLET PO SCH (10:53)
[2018-12-08] MEDS: levETIRAcetam 500 MG TABLET (FP) PO SCH ×2 (10:53→21:12)
[2018-12-08] MEDS: ASPIRIN 81 MG CHEWABLE TABLETS PO SCH (10:53)
[2018-12-08] MEDS: RIFAXIMIN 550 MG TABLET (UD) PO SCH ×2 (10:54→21:13)
[2018-12-08] MEDS: SPIRONOLACTONE 25 MG TABLET (FP) PO SCH (10:54)
[2018-12-08] MEDS: THIAMINE HCL 200 MG/2 ML VIAL IVPB SCH (10:54)
[2018-12-08] MEDS: LACTULOSE 20 GM/30 ML UDC (FOR ORAL USE ONLY) PO SCH ×2 (10:54→21:12)
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
[2018-12-08] MEDS ORDERED: GABAPENTIN 300 MG CAPSULE (FP) PO ONE (14:36)
[2018-12-08] MEDS: DOCUSATE SODIUM 100 MG CAPSULE (FP) PO SCH ×2 (16:05→21:12)
--- NOTE | 2018-12-08 17:27 | PN ---
Progress Note (short form) - Note Progress Note: 58 year old female histoy of Polysubstance abuse ( benzo, occaine, heroin, ETOH) , Epilepsy for one year, cirrhosis, depression, DM. Patient was here at hospital for fall and lethargy, and later sent to Drug rehab. Patient has negative ct head. Apparently she was not on any benzo. Patient had four episode of seizure , generalized tonic clonic activity. She LOC, There was no tongue bite. But patient do get tongue bite. She was on keppra 500 mg po bid and neurontin 300 mg po bid. According to Rehab notes, she was in DTs and having aduditory hallucinations. She is also on methadone . She has low platelet due to liver disease. Patient has one episode of ? seizure. It was discribed as moving her head side ways and trying to bite her thumb between her teeth . She was given klonapin and ativan prn no seizure in last two days, she is feeling better after bowel movement. Her klonapin has been reduced as she is waiting to go to rehab. NEUROLOGICAL EXAMINATION Alert oriented x 3, speech is normal, no neck stiffness EOMI, there is left facial asymmetry Patient is able to walk on toe and heel and slight difficulty on straight line upper extremity is left arm is slightly weaker( as per patient she has history of stroke) CT head unremarkable on Dec 3, S. NH3 is 73.6, EEG is normal Assesmsent /Plan 58 year old female history of poly substance abuse ( Benzo, alcohol, cocaine and heroin) patient was in rehab for benzo withdrawal and had seizure. She has one atypical seizure on dec 05, at floor. Plan if she continue to have episode, she may need video/eeg consult - reduce to clonazepam .25 mg po qd , psych consult appreciated. - continue keppra to 1 gm po bid - seizure precautions Thanking you so much Duane Azul MD
[2018-12-08] MEDS: GABAPENTIN 300 MG CAPSULE (FP) PO SCH (21:12)
[2018-12-08] MEDS: ATORVASTATIN CA 20 MG TABLET (FP) PO SCH (21:12)
[2018-12-09] MEDS: METHADONE HCL 40 MG DISPERSABLE TABLET PO SCH (06:20)
[2018-12-09] MEDS: DOCUSATE SODIUM 100 MG CAPSULE (FP) PO SCH ×3 (06:23→22:08)
[2018-12-09] MEDS: INSULIN SLIDING SCALE (NOVOLOG) 1 VIAL SQ SCH ×4 (06:24→22:11)
[2018-12-09] MEDS: levETIRAcetam 500 MG TABLET (FP) PO SCH ×2 (09:17→22:08)
[2018-12-09] MEDS: GABAPENTIN 300 MG CAPSULE (FP) PO SCH ×2 (09:17→22:09)
[2018-12-09] MEDS: FOLIC ACID 1 MG TABLET (FP) PO SCH (09:18)
[2018-12-09] MEDS: clonazePAM 0.5 MG TABLET PO SCH (09:18)
[2018-12-09] MEDS: LACTULOSE 20 GM/30 ML UDC (FOR ORAL USE ONLY) PO SCH ×2 (09:18→22:10)
[2018-12-09] MEDS: ASPIRIN 81 MG CHEWABLE TABLETS PO SCH (09:18)
[2018-12-09] MEDS: FUROSEMIDE 40 MG TABLET (FP) PO SCH (09:18)
[2018-12-09] MEDS: RIFAXIMIN 550 MG TABLET (UD) PO SCH ×2 (09:23→22:09)
[2018-12-09] MEDS: THIAMINE HCL 200 MG/2 ML VIAL IVPB SCH (09:24)
[2018-12-09] MEDS: SPIRONOLACTONE 25 MG TABLET (FP) PO SCH (09:29)
--- NOTE | 2018-12-09 09:56 | PN ---
Physical Exam: SUBJECTIVE: Patient seen and examined at the bedside. no overnight events. OBJECTIVE: decrease dose of klonopin Vital Signs Period Temp Pulse Resp BP Sys/Hendrix Pulse Ox Last 24 Hr 98.0 F-98.5 F 64-69 20-20 101-119/64-71 99 GENERAL: Awake, alert, and fully oriented, in no acute distress. HEAD: Normal with no signs of trauma. EYES: Pupils equal, round and reactive to light, extraocular movements intact, sclera anicteric, conjunctiva clear. No lid lag. EARS, NOSE, THROAT: Ears normal, nares patent, oropharynx clear without exudates. Moist mucous membranes. NECK: Normal range of motion, supple without lymphadenopathy, JVD, or masses. LUNGS: Breath sounds equal, diminished to auscultation bilaterally HEART: Regular rate and rhythm ABDOMEN: Soft, nontender, not distended, obese abdomen MUSCULOSKELETAL: Normal range of motion at all joints. No bony deformities or tenderness. No CVA tenderness. UPPER EXTREMITIES: No peripheral edema. LOWER EXTREMITIES: lower ext edema, left >right, negative for dvt NEUROLOGICAL: Normal speech. gait not observed PSYCHIATRIC: Cooperative. calm SKIN: bruising upper arms bilaterally Laboratory Results - last 24 hr 12/06/18 12/07/18 12/08/18 12:25 08:00 12:09 POC Glucometer 84 Beta Globulins 0.8 Levetiracetam 45.1 H ROSENDO & SPEP Interp Total Protein (ROSENDO) 6.8 Albumin (ROSENDO) 3.4 Albumin/Globulin (ROSENDO) 1.1 Fonye-5-Staxxrmdt ROSENDO 0.2 Guzgk-4-Vzbuvfovs ROSENDO 0.6 Gamma Globulins (ROSENDO) 1.7 ROSENDO M-Yosef Not observed ROSENDO Comments IEP IgG 1564 IEP IgA 344 IEP IgM 82 12/09/18 06:18 POC Glucometer 76 Beta Globulins Levetiracetam ROSENDO & SPEP Interp Total Protein (ROSENDO) Albumin (ROSENDO) Albumin/Globulin (ROSENDO) Gvoij-4-Shfkaaeqe ROSENDO Mgtui-5-Bgzlndjcr ROSENDO Gamma Globulins (ROSENDO) ROSENDO M-Yosef ROSENDO Comments IEP IgG IEP IgA IEP IgM Active Medications Generic Name Dose Route Start Last Admin Trade Name Freq PRN Reason Stop Dose Admin Albuterol/Ipratropium 1 amp 02/06/19 09:39 12/06/18 11:35 Duoneb - NEB 1 amp Q6H PRN Administration SHORTNESS OF BREATH Aspirin 81 mg 12/08/18 10:15 12/09/18 09:18 Asa - PO 81 mg DAILY CJ Administration Atorvastatin Calcium 20 mg 12/08/18 22:00 12/08/18 21:12 Lipitor - PO 20 mg HS CJ Administration Clonazepam 0.25 mg 12/09/18 10:00 12/09/18 09:18 Klonopin - PO 0.25 mg DAILY CJ Administration Docusate Sodium 100 mg 12/08/18 14:30 12/09/18 06:23 Colace - PO 100 mg TID CJ Administration Folic Acid 1 mg 12/05/18 21:45 12/09/18 09:18 Folic Acid - PO 1 mg DAILY CJ Administration Furosemide 40 mg 12/06/18 10:00 12/09/18 09:18 Lasix - PO 40 mg DAILY CJ Administration Gabapentin 300 mg 12/08/18 22:00 12/09/18 09:17 Neurontin - PO 300 mg BID CJ Administration Insulin Aspart 1 vial 12/05/18 22:00 12/09/18 06:24 Novolog Vial Sliding Scale - SQ Not Given ACHS CJ Protocol Lactulose 20 gm 12/07/18 22:00 12/09/18 09:18 Cephulac (Oral Use) PO 20 gm BID CJ Administration Levetiracetam 1,000 mg 12/05/18 22:00 12/09/18 09:17 Keppra - PO 1,000 mg BID CJ Administration Methadone HCl 80 mg 12/06/18 09:00 12/09/18 06:20 Dolophine - PO 80 mg DAILY@0600 CJ Administration Rifaximin 550 mg 12/05/18 22:00 12/09/18 09:23 Xifaxan - PO 550 mg BID CJ Administration Spironolactone 50 mg 12/06/18 10:00 12/09/18 09:29 Aldactone - PO 50 mg DAILY CJ Administration Thiamine HCl 200 mg 12/05/18 21:45 12/09/18 09:24 Vitamin B1 Injection - IVPB 200 mg DAILY CJ Administration ASSESSMENT/PLAN: Patient is a 58 year old female with a significant past medical history of substance abuse (alcohol, cocaine, heroin), CHF, epilepsy, cirrhosis, depression , Type 2 diabetes and asthma. She was sent to the ED from [facility] for seizures. Patient had a total of 4 seizures at [facility], and sent to [facility] for further evaluation. It was felt that the seizures were due to benzo withdrawals and she has been put on Klonopin BID low dose. Keppra home dose was increased from 500mg BID to 1000mg BID. Imagin12/07/2018: Abd/Pelvic CT shows nodular hepatomegaly with a fatty liver. left lobe hypertrophy. multiple varicies consistent with cirrhosis and portal hypertension. Marked splenomegaly. Nodules of the left lung a 9mm nodule can be evaluated with a PET scan. Problem List Epilepsy Substance abuse CHF Cirrhosis Thrombocytopenia anxiety/depression diabetes, type 2 Neuro: Epilepsy/ Seizures. Presented with four seizures from [facility]. Had one seizure on December 05 while inpatient, none since Seizures may be secondary to benzo withdrawal On Keppra 1000mg BID, Gabapentin 300mg bid restarted. Low dose Benzo with slow taper EEG normal UA, UC BC negative Reduce Klonopin 0.25mg to daily dosing and discontinue it on Tuesday. Await psyche consult Psyche: Substance abuse On Methadone 80mg daily, however has prolonged qt but unchanged from previous visit. It was recommended on last admission that patient be weaned off Methadone 2/2 and put on subaxone due to prolonged qtc Continue methadone 80mg, detox consult placed for possible start of subaxone Card: CHF, Chronic diastolic Monitor respiratory status Pulm: Asthma, stable Heme: Thrombocytopenia @ 35, has been this low on previous admissions. Abd/pelvis ct with nodular hepatomegaly with a fatty liver. left lobe hypertrophy. multiple varicies consistent with cirrhosis and portal hypertension. marked splenomegaly. Nodules of the left lung a 9mm nodule can be evaluated with a PET scan. Continue Rifaximin. Lactulose, Lasix, Spironolactone. GI as outpatient once acute issues resolve Endocrine: Diabetes Novolog ac/hs fen tolerating po monitor electrolytes diabetic diet prophy physical therapy No a/c 2/2 to thrombocytopenia Visit type - Emergency Visit Emergency Visit: Yes ED Registration Date: 12/05/18 Care time: The patient presented to the Emergency Department on the above date and was hospitalized for further evaluation of their emergent condition. - New Patient This patient is new to me today: No - Critical Care Critical Care patient: No - Discharge Referral Referred to [facility] No
[2018-12-09 11:01] LABS: BASO % 0.2 % (0-2.0); EOS % 9.2 % (0-4.5); HEMATOCRIT 35.1 % (32.4-45.2); HEMOGLOBIN 11.8 GM/dL (10.7-15.3); LYMPH % 26.9 % (8-40); MCH 28.8 pg (25.7-33.7); MCHC 33.8 g/dl (32.0-36.0); MEAN CELL VOLUME 85.4 fl (80-96); MEAN PLT VOLUME 11.5 fl (7.5-11.1); MONO % 12.8 % (3.8-10.2); NEUT % 50.9 % (42.8-82.8); PLATELET COUNT 37 K/MM3 (134-434); RBC 4.11 M/mm3 (3.60-5.2); RDW 14.8 % (11.6-15.6); WHITE BLOOD COUNT 4.3 K/mm3 (4.0-10.0)
[2018-12-09 11:40] LABS: ALBUMIN 3.4 g/dl (3.4-5.0); ALK PHOS 70 U/L (45-117); ANION GAP 5 MMOL/L (8-16); BILIRUBIN,TOTAL 0.8 mg/dL (0.2-1); BLOOD UREA NITROGEN 14 mg/dL (7-18); CHLORIDE 101 mmol/L (98-107); CO2 30 mmol/L (21-32); CREATININE 0.7 mg/dL (0.55-1.3); GLUCOSE,RANDOM 109 mg/dL (74-106); POTASSIUM 3.8 mmol/L (3.5-5.1); SGOT/AST 24 U/L (15-37); SGPT/ALT 19 U/L (13-61); SODIUM 136 mmol/L (136-145); TOT PROT 7.2 g/dl (6.4-8.2)
--- NOTE | 2018-12-09 13:22 | PN ---
Progress Note (short form) - Note Progress Note: 58 year old female histoy of Polysubstance abuse ( benzo, occaine, heroin, ETOH) , Epilepsy for one year, cirrhosis, depression, DM. Patient was here at hospital for fall and lethargy, and later sent to Drug rehab. Patient has negative ct head. Apparently she was not on any benzo. Patient had four episode of seizure , generalized tonic clonic activity. She LOC, There was no tongue bite. But patient do get tongue bite. She was on keppra 500 mg po bid and neurontin 300 mg po bid. According to Rehab notes, she was in DTs and having aduditory hallucinations. She is also on methadone . She has low platelet due to liver disease. Patient has one episode of ? seizure. It was discribed as moving her head side ways and trying to bite her thumb between her teeth . She was given klonapin and ativan prn no seizure in last two days, she is feeling better after bowel movement. Her klonapin has been reduced as she is waiting to go to rehab. last dose to be taken on tuesday NEUROLOGICAL EXAMINATION Alert oriented x 3, speech is normal, no neck stiffness EOMI, there is left facial asymmetry Patient is able to walk on toe and heel and slight difficulty on straight line upper extremity is left arm is slightly weaker( as per patient she has history of stroke) CT head unremarkable on Dec 03, S. NH3 is 73.6, EEG is normal Assesmsent /Plan 58 year old female history of poly substance abuse ( Benzo, alcohol, cocaine and heroin) patient was in rehab for benzo withdrawal and had seizure. She has one atypical seizure on dec 05, at floor. no more seizure since than Plan if she continue to have episode, she may need video/eeg consult - reduce to clonazepam .25 mg po qd , psych consult appreciated. tuesday would be last dose - continue keppra to 1 gm po bid - seizure precautions Thanking you so much Duane Azul MD
[2018-12-09] MEDS: ATORVASTATIN CA 20 MG TABLET (FP) PO SCH (22:09)
[2018-12-10] MEDS: DOCUSATE SODIUM 100 MG CAPSULE (FP) PO SCH ×3 (05:40→22:31)
[2018-12-10] MEDS: METHADONE HCL 40 MG DISPERSABLE TABLET PO SCH (05:40)
[2018-12-10] MEDS: INSULIN SLIDING SCALE (NOVOLOG) 1 VIAL SQ SCH ×4 (06:04→22:31)
[2018-12-10 08:48] LABS: BASO % 0.2 % (0-2.0); EOS % 8.8 % (0-4.5); HEMATOCRIT 33.7 % (32.4-45.2); HEMOGLOBIN 11.7 GM/dL (10.7-15.3); MCH 29.8 pg (25.7-33.7); MCHC 34.6 g/dl (32.0-36.0); MEAN CELL VOLUME 86.1 fl (80-96); MEAN PLT VOLUME 11.3 fl (7.5-11.1); MONO % 13.2 % (3.8-10.2); NEUT % 48.8 % (42.8-82.8); RBC 3.91 M/mm3 (3.60-5.2); RDW 14.2 % (11.6-15.6); WHITE BLOOD COUNT 4.2 K/mm3 (4.0-10.0)
[2018-12-10 09:04] LABS: PLATELET COUNT 30 K/MM3 (134-434)
[2018-12-10 09:19] LABS: ALBUMIN 3.1 g/dl (3.4-5.0); ALK PHOS 69 U/L (45-117); ANION GAP 4 MMOL/L (8-16); BILIRUBIN,TOTAL 0.7 mg/dL (0.2-1); BLOOD UREA NITROGEN 16 mg/dL (7-18); CALCIUM 8.2 mg/dL (8.5-10.1); CHLORIDE 102 mmol/L (98-107); CO2 31 mmol/L (21-32); CREATININE 0.6 mg/dL (0.55-1.3); GLUCOSE,RANDOM 102 mg/dL (74-106); POTASSIUM 3.7 mmol/L (3.5-5.1); SGOT/AST 26 U/L (15-37); SGPT/ALT 20 U/L (13-61); SODIUM 137 mmol/L (136-145); TOT PROT 6.8 g/dl (6.4-8.2)
[2018-12-10] MEDS ORDERED: PT OWN MED DRAWER 7, Y5N ONE (09:52)
[2018-12-10] MEDS: ASPIRIN 81 MG CHEWABLE TABLETS PO SCH (09:59)
[2018-12-10] MEDS: GABAPENTIN 300 MG CAPSULE (FP) PO SCH ×2 (09:59→22:31)
[2018-12-10] MEDS: FOLIC ACID 1 MG TABLET (FP) PO SCH (10:00)
[2018-12-10] MEDS: LACTULOSE 20 GM/30 ML UDC (FOR ORAL USE ONLY) PO SCH (10:00)
[2018-12-10] MEDS: levETIRAcetam 500 MG TABLET (FP) PO SCH ×2 (10:00→22:31)
[2018-12-10] MEDS: FUROSEMIDE 40 MG TABLET (FP) PO SCH (10:00)
[2018-12-10] MEDS: RIFAXIMIN 550 MG TABLET (UD) PO SCH ×2 (10:04→22:35)
[2018-12-10] MEDS: THIAMINE HCL 200 MG/2 ML VIAL IVPB SCH (10:06)
[2018-12-10] MEDS: SPIRONOLACTONE 25 MG TABLET (FP) PO SCH (10:06)
[2018-12-10] MEDS: clonazePAM 0.5 MG TABLET PO SCH (10:12)
--- NOTE | 2018-12-10 11:15 | PN ---
Progress Note (short form) - Note Progress Note: 58 year old female histoy of Polysubstance abuse ( benzo, occaine, heroin, ETOH) , Epilepsy for one year, cirrhosis, depression, DM. Patient was here at hospital for fall and lethargy, and later sent to Drug rehab. Patient has negative ct head. Apparently she was not on any benzo. Patient had four episode of seizure , generalized tonic clonic activity. She LOC, There was no tongue bite. But patient do get tongue bite. She was on keppra 500 mg po bid and neurontin 300 mg po bid. According to Rehab notes, she was in DTs and having aduditory hallucinations. She is also on methadone . She has low platelet due to liver disease. Patient has one episode of ? seizure. It was discribed as moving her head side ways and trying to bite her thumb between her teeth . She was given klonapin and ativan prn no seizure in last two days, she is feeling better after bowel movement. Her klonapin has been reduced as she is waiting to go to rehab. last dose to be taken on tuesday NEUROLOGICAL EXAMINATION Alert oriented x 3, speech is normal, no neck stiffness EOMI, there is left facial asymmetry Patient is able to walk on toe and heel and slight difficulty on straight line upper extremity is left arm is slightly weaker( as per patient she has history of stroke) CT head unremarkable on Dec 03, S. NH3 is 73.6, EEG is normal Assesmsent /Plan 58 year old female history of poly substance abuse ( Benzo, alcohol, cocaine and heroin) patient was in rehab for benzo withdrawal and had seizure. She has one atypical seizure on dec 05, at floor. no more seizure since than. she got last dose of clonazepam today. Plan if she continue to have episode, she may need video/eeg consult - continue keppra to 1 gm po bid - seizure precautions Thanking you so much Duane Azul MD
--- NOTE | 2018-12-10 11:26 | PN ---
Physical Exam: SUBJECTIVE: Patient seen and examined at the bedside. feels well, denies discomfort. wants to get clean and stop using street drugs. wants to also stop methadone. refusing subaxone. OBJECTIVE: discussed with patient that she needs to be evaluated by GI as an outpatient as well as a follow up PET scan. Vital Signs Period Temp Pulse Resp BP Sys/Hendrix Pulse Ox Last 24 Hr 97.8 F-99 F 65-69 17-18 108-141/66-79 GENERAL: Awake, alert, and fully oriented, in no acute distress. HEAD: Normal with no signs of trauma. EYES: Pupils equal, round and reactive to light, extraocular movements intact, sclera anicteric, conjunctiva clear. No lid lag. EARS, NOSE, THROAT: Ears normal, nares patent, oropharynx clear without exudates. Moist mucous membranes. NECK: Normal range of motion, supple without lymphadenopathy, JVD, or masses. LUNGS: Breath sounds equal, diminished to auscultation bilaterally HEART: Regular rate and rhythm ABDOMEN: Soft, nontender, not distended, obese abdomen MUSCULOSKELETAL: Normal range of motion at all joints. No bony deformities or tenderness. No CVA tenderness. UPPER EXTREMITIES: No peripheral edema. LOWER EXTREMITIES: lower ext edema, left >right, negative for dvt NEUROLOGICAL: Normal speech. gait not observed PSYCHIATRIC: Cooperative. calm SKIN: bruising upper arms bilaterally Laboratory Results - last 24 hr 12/09/18 12/10/18 12/10/18 10:40 07:15 07:15 WBC 4.2 RBC 3.91 Hgb 11.7 Hct 33.7 MCV 86.1 MCH 29.8 MCHC 34.6 RDW 14.2 Plt Count 30 L* MPV 11.3 H Absolute Neuts (auto) 2.1 Neutrophils % 48.8 Lymphocytes % 29.0 Monocytes % 13.2 H Eosinophils % 8.8 H Basophils % 0.2 Nucleated RBC % 0 Sodium 136 137 Potassium 3.8 3.7 Chloride 101 102 Carbon Dioxide 30 31 Anion Gap 5 L 4 L BUN 14 16 Creatinine 0.7 0.6 Creat Clearance w eGFR > 60 > 60 Random Glucose 109 H 102 Calcium 9.0 8.2 L Total Bilirubin 0.8 0.7 AST 24 26 ALT 19 20 Alkaline Phosphatase 70 69 Total Protein 7.2 6.8 Albumin 3.4 3.1 L Active Medications Generic Name Dose Route Start Last Admin Trade Name Freq PRN Reason Stop Dose Admin Albuterol/Ipratropium 1 amp 12/06/18 09:39 12/06/18 11:35 Duoneb - NEB 1 amp Q6H PRN Administration SHORTNESS OF BREATH Aspirin 81 mg 12/08/18 10:15 12/10/18 09:59 Asa - PO 81 mg DAILY CJ Administration Atorvastatin Calcium 20 mg 12/08/18 22:00 12/09/18 22:09 Lipitor - PO 20 mg HS CJ Administration Clonazepam 0.25 mg 12/09/18 10:00 12/10/18 10:12 Klonopin - PO 12/10/18 12:00 0.25 mg DAILY CJ Administration Docusate Sodium 100 mg 12/08/18 14:30 12/10/18 05:40 Colace - PO 100 mg TID CJ Administration Folic Acid 1 mg 12/05/18 21:45 12/10/18 10:00 Folic Acid - PO 1 mg DAILY CJ Administration Furosemide 40 mg 12/06/18 10:00 12/10/18 10:00 Lasix - PO 40 mg DAILY CJ Administration Gabapentin 300 mg 12/08/18 22:00 12/10/18 09:59 Neurontin - PO 300 mg BID CJ Administration Insulin Aspart 1 vial 12/05/18 22:00 12/10/18 06:04 Novolog Vial Sliding Scale - SQ Not Given ACHS [facility] Protocol Lactulose 20 gm 12/07/18 22:00 12/10/18 10:00 Cephulac (Oral Use) PO 20 gm BID CJ Administration Levetiracetam 1,000 mg 12/05/18 22:00 12/10/18 10:00 Keppra - PO 1,000 mg BID CJ Administration Methadone HCl 80 mg 12/06/18 09:00 12/10/18 05:40 Dolophine - PO 80 mg DAILY@0600 CJ Administration Rifaximin 550 mg 12/05/18 22:00 12/10/18 10:04 Xifaxan - PO 550 mg BID CJ Administration Spironolactone 50 mg 12/06/18 10:00 12/10/18 10:06 Aldactone - PO 50 mg DAILY CJ Administration Thiamine HCl 200 mg 12/05/18 21:45 12/10/18 10:06 Vitamin B1 Injection - IVPB 200 mg DAILY CJ Administration ASSESSMENT/PLAN: Patient is a 58 year old female with a significant past medical history of substance abuse (alcohol, cocaine, heroin), CHF, epilepsy, cirrhosis, depression , Type 2 diabetes and asthma. She was sent to the ED from [facility] for seizures. Patient had a total of 4 seizures at [facility], and sent to [facility] for further evaluation. It was felt that the seizures were due to benzo withdrawals and she has been put on Klonopin BID low dose. Keppra home dose was increased from 500mg BID to 1000mg BID. She has been titrated off the Benzos. Imagin12/07/2018: Abd/Pelvic CT shows nodular hepatomegaly with a fatty liver. left lobe hypertrophy. multiple varicies consistent with cirrhosis and portal hypertension. Marked splenomegaly. Nodules of the left lung a 9mm nodule can be evaluated with a PET scan. Problem List Epilepsy Substance abuse CHF Cirrhosis Thrombocytopenia anxiety/depression diabetes, type 2 Neuro: Epilepsy/ Seizures. Presented with four seizures from [facility]. Had one seizure on December 05 while inpatient, none since Seizures may be secondary to benzo withdrawal On Keppra 1000mg BID, Gabapentin 300mg Benzos tapered off EEG normal UA, UC BC negative Seen by psyche. Psyche: Substance abuse On Methadone 80mg daily, however has prolonged qt but unchanged from previous visit. It was recommended on last admission that patient be weaned off Methadone 2/2 and put on subaxone due to prolonged qtc. discussed with patient who is refusing Subaxone and wants to be tapered off the methadone. Card: CHF, Chronic diastolic Monitor respiratory status Pulm: Asthma, stable Heme: Thrombocytopenia @ 30, has been this low on previous admissions. Abd/pelvis ct with nodular hepatomegaly with a fatty liver. left lobe hypertrophy. multiple varicies consistent with cirrhosis and portal hypertension. marked splenomegaly. Nodules of the left lung a 9mm nodule can be evaluated with a PET scan. Continue Rifaximin. Lactulose, Lasix, Spironolactone. GI as outpatient once acute neurological issues resolve. Endocrine: Diabetes Novolog ac/hs fen tolerating po monitor electrolytes diabetic diet prophy physical therapy No a/c 2/2 to thrombocytopenia Visit type - Emergency Visit Emergency Visit: Yes ED Registration Date: 12/05/18 Care time: The patient presented to the Emergency Department on the above date and was hospitalized for further evaluation of their emergent condition. - New Patient This patient is new to me today: No - Critical Care Critical Care patient: No - Discharge Referral Referred to [facility] No
[2018-12-10] MEDS ORDERED: INSULIN (NOVOLOG) ASPART 100 UNITS/ML 10ML VIAL ONE ×2 (11:55→21:06)
[2018-12-10] MEDS: ATORVASTATIN CA 20 MG TABLET (FP) PO SCH (22:31)
[2018-12-11] MEDS: METHADONE HCL 40 MG DISPERSABLE TABLET PO SCH (05:55)
[2018-12-11] MEDS: DOCUSATE SODIUM 100 MG CAPSULE (FP) PO SCH (05:55)
[2018-12-11] MEDS: INSULIN SLIDING SCALE (NOVOLOG) 1 VIAL SQ SCH (06:10)
[2018-12-11 07:07] LABS: IGA IMMUNOGLOBULIN 344; IGM IMMUNOGLOBULIN 82
[2018-12-11 08:59] LABS: BASO % 0.2 % (0-2.0); EOS % 6.3 % (0-4.5); HEMATOCRIT 37.1 % (32.4-45.2); HEMOGLOBIN 12.7 GM/dL (10.7-15.3); LYMPH % 29.1 % (8-40); MCH 29.7 pg (25.7-33.7); MCHC 34.2 g/dl (32.0-36.0); MEAN CELL VOLUME 86.8 fl (80-96); MEAN PLT VOLUME 11.2 fl (7.5-11.1); MONO % 14.1 % (3.8-10.2); NEUT % 50.3 % (42.8-82.8); RBC 4.27 M/mm3 (3.60-5.2); RDW 14.7 % (11.6-15.6); WHITE BLOOD COUNT 5.9 K/mm3 (4.0-10.0)
[2018-12-11 09:14] VITALS: BP 138/93; PULSE 73; TEMP 98.2
[2018-12-11 09:19] LABS: PLATELET COUNT 36 K/MM3 (134-434)
--- NOTE | 2018-12-11 10:10 | PN ---
Progress Note (short form) - Note Progress Note: 58 year old female histoy of Polysubstance abuse ( benzo, occaine, heroin, ETOH) , Epilepsy for one year, cirrhosis, depression, DM. Patient was here at hospital for fall and lethargy, and later sent to Drug rehab. Patient has negative ct head. Apparently she was not on any benzo. Patient had four episode of seizure , generalized tonic clonic activity. She LOC, There was no tongue bite. But patient do get tongue bite. She was on keppra 500 mg po bid and neurontin 300 mg po bid. According to Rehab notes, she was in DTs and having aduditory hallucinations. She is also on methadone . She has low platelet due to liver disease. Patient has one episode of ? seizure. It was discribed as moving her head side ways and trying to bite her thumb between her teeth . She was given klonapin and ativan prn no seizure in last three days, she is feeling better after bowel movement. she is waiting to go to rehab. NEUROLOGICAL EXAMINATION Alert oriented x 3, speech is normal, no neck stiffness EOMI, there is left facial asymmetry Patient is able to walk on toe and heel and slight difficulty on straight line upper extremity is left arm is slightly weaker( as per patient she has history of stroke) CT head unremarkable on Dec 03, S. NH3 is 73.6, EEG is normal Assesmsent /Plan 58 year old female history of poly substance abuse ( Benzo, alcohol, cocaine and heroin) patient was in rehab for benzo withdrawal and had seizure. She has one atypical seizure on dec 05, at floor. no more seizure since than. she got last dose of clonazepam yesterday. Plan if she continue to have episode, she may need video/eeg consult - continue keppra to 1 gm po bid - seizure precautions - follow up outpatient if needed Thanking you so much Duane Azul MD
--- NOTE | 2018-12-11 10:31 | DS ---
Physical Exam: SUBJECTIVE: Patient seen and examined at the bedside. in no acute distress wants to get clean and get off methadone. refusing subaxone OBJECTIVE: Vital Signs Period Temp Pulse Resp BP Sys/Hendrix Pulse Ox Last 24 Hr 97.9 F-98.5 F 60-74 18-18 102-143/62-93 PHYSICAL EXAM GENERAL: Awake, alert, and fully oriented, in no acute distress. HEAD: Normal with no signs of trauma. EYES: Pupils equal, round and reactive to light, extraocular movements intact, sclera anicteric, conjunctiva clear. No lid lag. EARS, NOSE, THROAT: Ears normal, nares patent, oropharynx clear without exudates. Moist mucous membranes. NECK: Normal range of motion, supple without lymphadenopathy, JVD, or masses. LUNGS: Breath sounds equal, diminished to auscultation bilaterally HEART: Regular rate and rhythm ABDOMEN: Soft, nontender, not distended, obese abdomen MUSCULOSKELETAL: Normal range of motion at all joints. No bony deformities or tenderness. No CVA tenderness. UPPER EXTREMITIES: No peripheral edema. LOWER EXTREMITIES: lower ext edema, left >right, negative for dvt NEUROLOGICAL: Normal speech. gait not observed PSYCHIATRIC: Cooperative. calm SKIN: bruising upper arms bilaterally LABS Laboratory Results - last 24 hr 12/07/18 12/10/18 12/10/18 08:00 11:53 17:29 WBC RBC Hgb Hct MCV MCH MCHC RDW Plt Count MPV Absolute Neuts (auto) Neutrophils % Lymphocytes % Monocytes % Eosinophils % Basophils % Nucleated RBC % POC Glucometer 197 91 IgG 1564 IgA 344 IgM 82 12/10/18 12/11/18 12/11/18 22:30 05:50 08:15 WBC 5.9 RBC 4.27 Hgb 12.7 Hct 37.1 MCV 86.8 MCH 29.7 MCHC 34.2 RDW 14.7 Plt Count 36 L* MPV 11.2 H Absolute Neuts (auto) 3.0 Neutrophils % 50.3 Lymphocytes % 29.1 Monocytes % 14.1 H Eosinophils % 6.3 H Basophils % 0.2 Nucleated RBC % 0 POC Glucometer 98 114 IgG IgA IgM HOSPITAL COURSE: Date of Admission:12/05/18 Date of Discharge: 12/11/18 Patient is a 58 year old female with a significant past medical history of substance abuse (alcohol, cocaine, heroin), CHF, epilepsy, cirrhosis, depression , Type 2 diabetes and asthma. She was sent to the ED from [facility] for seizures. Patient had a total of 4 seizures at [facility], and sent to [facility] for further evaluation. It was felt that the seizures were due to benzo withdrawals and she has been put on Klonopin BID low dose. Keppra home dose was increased from 500mg BID to 1000mg BID. She has been titrated off the Benzos. Imagin12/07/2018: Abd/Pelvic CT shows nodular hepatomegaly with a fatty liver. left lobe hypertrophy. multiple varicies consistent with cirrhosis and portal hypertension. Marked splenomegaly. Nodules of the left lung a 9mm nodule can be evaluated with a PET scan. Problem List Epilepsy Substance abuse CHF Cirrhosis Thrombocytopenia anxiety/depression diabetes, type 2 Neuro: Epilepsy/ Seizures. Presented with four seizures from [facility]. Had one seizure on December 05 while inpatient, none since Seizures may be secondary to benzo withdrawal On Keppra 1000mg BID, Gabapentin 300mg Started on low dose benzons and now Benzos tapered off EEG normal UA, UC BC negative Seen by psyche. Psyche: Substance abuse On Methadone 80mg daily, however has prolonged qtc but unchanged from previous visit. It was recommended on last admission that patient be weaned off Methadone 2/2 and put on subaxone due to prolonged qtc. discussed with patient who is refusing Subaxone and wants to be tapered off the methadone. Card: CHF, Chronic diastolic Monitor respiratory status. stable. Pulm: Asthma, stable Heme: Thrombocytopenia @ 36, has been this low on previous admissions. Abd/pelvis ct with nodular hepatomegaly with a fatty liver. left lobe hypertrophy. multiple varicies consistent with cirrhosis and portal hypertension. marked splenomegaly. Nodules of the left lung a 9mm nodule can be evaluated with a PET scan. Continue Rifaximin. Lactulose, Lasix, Spironolactone. GI as outpatient once acute neurological issues resolve. Endocrine: Diabetes Novolog ac/hs hmga1c 5.5%, should follow up with new PCP to see if she can be taken off insulin. Discharge home with GI follow up. New PCP appointment made for patient prior to discharge. Minutes to complete discharge: 60 Discharge Summary Reason For Visit: GRAND MAL SEIZURE,SEDATIVE, HYPNOTIC OR ANXIOLYTIC Current Active Problems Cocaine dependence (Acute) Grand mal seizure (Acute) Polypharmacy (Acute) Alcohol dependence (Chronic) Cocaine dependence (Chronic) Methadone maintenance therapy patient (Chronic) Sedative, hypnotic or anxiolytic use disorder, moderate, in early remission ( Chronic) Seizure disorder (Chronic) Thrombocytopenia (Chronic) Condition: Improved - Instructions Diet, Activity, Other Instructions: Mrs Arroyo: You were admitted for seizures and will be discharged back to rehab at [facility] today. Here are our recommendations: Seizures Continue Keppra 1000mg TWICE per day Continue Gabapentin 300mg TWICE PER DAY your EEG was normal Your last seizure was on admission on 12/05/2018. None since. Follow up with Dr. Diehl (neurologist) for a follow up visit. Substance abuse Rehab at [facility] We recommend that you be taken off the Methadone and put on Suboxone for prolonged QTC. You wish to be taken off the methadone all together. Hematology Your platelets are LOW, at 36, normal platelets are above 100. Your spleen is enlarged which can be caused by liver disease. It is important that you see a GI specialist once you have completed REHAB. I have enclosed a specialist for your to see (Dr. Hastings). His information is enclosed. We found that you have a noduile of the left lung that needs to be evaluated. You will need a PET scan. a PET scan is a nuclear medication imaging study that can give you a diagnosis. Please follow up with your primary care doctor in 1 week. FOLLOW UPs Please follow up with GI specialist Pleas abstain from alcohol or drug abuse, continue rehab. DO not take any blood thinners. Continue your antiseizure medications with a notation that your Keppra has been increased. We have made a follow up appointment for you with Dr. Diamond. [address] [facility], 2nd floor. [phone]. Please bring your discharge paper work with you thank you. [facility] [employer] [facility] [phone] Referrals: Erendira Diamond MD [Provisional Medical Staff] - (december 19 at 3:30pm) Dede Baez MD [Staff Physician] - 1 Week Korey Ortiz MD [Staff Physician] - 1 Week Ayanna Resendiz DO [Staff Physician] - Disposition: LONG TERM FACILITY - Home Medications Comprehensive Discharge Medication List: Ambulatory Orders Aspirin 81 mg PO DAILY 05/15/13 Insulin Regular, Human [Humulin R -] 8 units SQ DAILY 05/15/13 Furosemide [Lasix] 40 mg PO DAILY 11/30/18 Gabapentin 300 mg PO BID 11/30/18 Methadone [Dolophine -] 80 mg PO DAILY 11/30/18 Rifaximin [Xifaxan] 550 mg PO BID 11/30/18 Spironolactone 50 mg PO DAILY 11/30/18 Atorvastatin Ca [Lipitor] 20 mg PO HS #0 tablet 12/11/18 Folic Acid - 1 mg PO DAILY #0 tablet 12/11/18 levETIRAcetam [Keppra -] 1,000 mg PO BID #0 tablet 12/11/18 This patient is new to me today: Yes Date on this admission: 12/11/18 Emergency Visit: No Critical Care patient: No - Discharge Referral Referred to [facility] No
[2018-12-11] MEDS: GABAPENTIN 300 MG CAPSULE (FP) PO SCH (10:32)
[2018-12-11] MEDS: SPIRONOLACTONE 25 MG TABLET (FP) PO SCH (10:32)
[2018-12-11] MEDS: FUROSEMIDE 40 MG TABLET (FP) PO SCH (10:32)
[2018-12-11] MEDS: FOLIC ACID 1 MG TABLET (FP) PO SCH (10:32)
[2018-12-11] MEDS: ASPIRIN 81 MG CHEWABLE TABLETS PO SCH (10:32)
[2018-12-11] MEDS: levETIRAcetam 500 MG TABLET (FP) PO SCH (10:32)
[2018-12-11] MEDS: RIFAXIMIN 550 MG TABLET (UD) PO SCH (10:33)
[2018-12-11] MEDS: THIAMINE HCL 200 MG/2 ML VIAL IVPB SCH (10:53)
== END 2018-12-11 11:41 | disposition other institution (70) | DRG 774 ==
LOC: JER 10:58 → JERBED 14:51 → J5S 16:29
PROVIDERS: ADMIT Internal Medicine; ATTEND Nurse Practitioner Family
DX: F13.239 Sedative, hypnotic or anxiolytic dependence with withdrawal, unspecified (principal); E11.9 Type 2 diabetes mellitus without complications; J45.909 Unspecified asthma, uncomplicated; G40.909 Epilepsy, unspecified, not intractable, without status epilepticus; F17.210 Nicotine dependence, cigarettes, uncomplicated; E66.9 Obesity, unspecified; Z68.35 Body mass index [BMI] 35.0-35.9, adult; R16.2 Hepatomegaly with splenomegaly, not elsewhere classified; F10.20 Alcohol dependence, uncomplicated; I50.32 Chronic diastolic (congestive) heart failure; F14.20 Cocaine dependence, uncomplicated; D69.6 Thrombocytopenia, unspecified; F41.8 Other specified anxiety disorders
CPT/HCPCS: 36415; 71045-TC-FY; 74177-TC; 80053; 80177; 81003; 82140; 82607; 82746; 82784; 82962; 83036; 83735; 84155; 84165; 84439; 84443; 85025; 85027; 85610; 86334; 87040; 87086; 93005; 93010; 93970-TC; 95816; 99283-25; Q9967

== ENCOUNTER 2018-12-11 12:15 | Inpatient (IN) | payer OTHER ==
[2018-12-11 13:32] VITALS: BMI 34.0
--- NOTE | 2018-12-11 16:24 | HP ---
NOEMI ALEJO Rehab Assess/Revision - Admission History Admitted to Rehab from: Emergency Department ([facility], admitted 12/05/18 -12/11/18) Date of Admission to Rehab: 12/11/18 - Vital signs Vital Signs: Vital Signs Period Temp Pulse Resp BP Sys/Hendrix Pulse Ox Last 24 Hr 99.7 F 77 18 124/84 - Findings Detox History & Physical reviewed: Yes Concur with findings: Yes Comments/Additional Findings: Patient was admitted 12/01/18 to [facility] for Rehab , on 12/05/18 patient was transferred to [facility] for Grand Mal seizure, patient was cleared today to return and continue rehab. Patient medically stable. d/c summary from [facility] recommends patient to change from Methadone to Suboxone. Patient reports she does not wish to continue with MMTP and does not want Suboxone at this time. Benefits and risk discussed with patient and verbalizes understanding. Patient to follow up with her [facility] at [facility] upon discharged and additional medical referrals made during her stay at [facility] [place]. Inpatient Rehab Admission - Rehab Decision to Admit Inpatient rehab admission?: Yes - Initial Determination Are CD services needed?: Yes Free of communicable disease: Yes Not in need of hospitalization: Yes - Rehab Admission Criteria Previous failed treatment: Yes Poor recovery environment: Yes Comorbidities: Yes Lacks judgement: Yes Patient is meeting Inpatient Rehab admission criteria:: Yes
[2018-12-11] MEDS ORDERED: ACETAMINOPHEN 325 MG TABLET (FP) PO PRN (16:31)
[2018-12-11] MEDS ORDERED: MAGNESIUM CITRATE 300 ML BOTTLE PO PRN (16:31)
[2018-12-11] MEDS ORDERED: P-EPHED 60MG/TRIPROLIDI 2.5MG TABLET PO PRN (16:31)
[2018-12-11] MEDS ORDERED: MAGNESIUM HYDROX 2400MG/30ML ORAL SUSPENSION 30 ML CUP PO PRN (16:31)
[2018-12-11] MEDS ORDERED: guaiFENesin/D-METHORPHAN HB 10 ML UNIT-DOSE CUPS PO PRN (16:31)
[2018-12-11] MEDS ORDERED: MAG HYDROX/AL HYDROX/SIMETH 30 ML UNIT-DOSE CUP PO PRN (16:31)
[2018-12-11] MEDS ORDERED: LOPERAMIDE HCL 2 MG CAPSULE PO PRN (16:31)
[2018-12-11] MEDS ORDERED: MENTHOL/PHENOL 1 EACH UD MM PRN (16:31)
[2018-12-11] MEDS: THIAMINE HCL 100 MG TABLET (FP) PO SCH (21:23)
[2018-12-11] MEDS: GABAPENTIN 300 MG CAPSULE (FP) PO SCH (21:23)
[2018-12-11] MEDS: levETIRAcetam 500 MG TABLET (FP) PO SCH (21:23)
[2018-12-11] MEDS: ATORVASTATIN CA 20 MG TABLET (FP) PO SCH (21:23)
[2018-12-11] MEDS: RIFAXIMIN 550 MG TABLET (UD) PO SCH (21:24)
[2018-12-11] MEDS ORDERED: MELATONIN 5 MG TABLETS PO PRN (22:00)
[2018-12-11] MEDS ORDERED: PT OWN MED DRAWER 7, Y5N ONE (22:15)
[2018-12-12] MEDS ORDERED: METHADONE HCL 40 MG DISPERSABLE TABLET PO SCH (06:00)
[2018-12-12] MEDS: METHADONE HCL 40 MG DISPERSABLE TABLET PO SCH (06:34)
[2018-12-12] MEDS: INSULIN (NOVOLOG) ASPART 100 UNITS/ML 10ML VIAL SQ SCH (07:21)
[2018-12-12] MEDS ORDERED: FOLIC ACID 1 MG TABLET (FP) PO SCH (10:00)
[2018-12-12] MEDS: levETIRAcetam 500 MG TABLET (FP) PO SCH ×2 (10:10→21:43)
[2018-12-12] MEDS: ASPIRIN 81 MG CHEWABLE TABLETS PO SCH (10:10)
[2018-12-12] MEDS: FUROSEMIDE 40 MG TABLET (FP) PO SCH (10:11)
[2018-12-12] MEDS: GABAPENTIN 300 MG CAPSULE (FP) PO SCH ×2 (10:11→21:43)
[2018-12-12] MEDS: PRENATAL VITAMINS W/ FOLIC ACID TABLET (FP) PO SCH (10:11)
[2018-12-12] MEDS: RIFAXIMIN 550 MG TABLET (UD) PO SCH ×2 (10:11→21:43)
[2018-12-12] MEDS ORDERED: COLLOIDAL OATMEAL 1 BAR EACH TP PRN (11:08)
[2018-12-12] MEDS: ATORVASTATIN CA 20 MG TABLET (FP) PO SCH (21:43)
[2018-12-12] MEDS: THIAMINE HCL 100 MG TABLET (FP) PO SCH (21:43)
[2018-12-13] MEDS: METHADONE HCL 40 MG DISPERSABLE TABLET PO SCH (06:24)
[2018-12-13] MEDS: INSULIN (NOVOLOG) ASPART 100 UNITS/ML 10ML VIAL SQ SCH (07:46)
[2018-12-13] MEDS: PRENATAL VITAMINS W/ FOLIC ACID TABLET (FP) PO SCH (10:07)
[2018-12-13] MEDS: RIFAXIMIN 550 MG TABLET (UD) PO SCH ×2 (10:07→21:48)
[2018-12-13] MEDS: ASPIRIN 81 MG CHEWABLE TABLETS PO SCH (10:07)
[2018-12-13] MEDS: FUROSEMIDE 40 MG TABLET (FP) PO SCH (10:07)
[2018-12-13] MEDS: GABAPENTIN 300 MG CAPSULE (FP) PO SCH ×2 (10:07→21:49)
[2018-12-13] MEDS: levETIRAcetam 500 MG TABLET (FP) PO SCH ×2 (10:08→21:48)
[2018-12-13] MEDS: NICOTINE POLACRILEX 4 MG GUM BUC PRN ×3 (10:09→21:51)
--- NOTE | 2018-12-13 11:13 | PN ---
[facility] Progress Note Note: Vital Signs Temperature 97.7 F 12/13/18 07:03 Pulse Rate 69 12/13/18 09:17 Respiratory Rate 18 12/13/18 07:03 Blood Pressure 106/72 12/13/18 09:17 O2 Sat by Pulse Oximetry (%) Laboratory Tests 12/11/18 12/12/18 12/12/18 15:42 06:31 11:54 POC Glucometer 105 75 80 Ammonia 12/12/18 12/13/18 12/13/18 21:47 06:24 07:35 POC Glucometer 106 84 Ammonia 46.99 H AMMONIA LEVEL ELEVATED AT 46.99. PATIENT ASYMPTOMATIC. WILL ORDER LACTULOSE 20CC BID AND REPEAT LEVEL IN 12/18/18.
[2018-12-13] MEDS: THIAMINE HCL 100 MG TABLET (FP) PO SCH (21:47)
[2018-12-13] MEDS ORDERED: PT OWN MED DRAWER 7, Y5N ONE (21:48)
[2018-12-13] MEDS: ATORVASTATIN CA 20 MG TABLET (FP) PO SCH (21:49)
[2018-12-13] MEDS: LACTULOSE 20 GM/30 ML UDC (FOR ORAL USE ONLY) PO SCH (21:51)
[2018-12-14] MEDS: METHADONE HCL 40 MG DISPERSABLE TABLET PO SCH (06:09)
[2018-12-14] MEDS: INSULIN (NOVOLOG) ASPART 100 UNITS/ML 10ML VIAL SQ SCH (06:10)
[2018-12-14] MEDS: NICOTINE POLACRILEX 4 MG GUM BUC PRN ×4 (06:12→16:39)
[2018-12-14] MEDS ORDERED: INSULIN (NOVOLOG) ASPART 100 UNITS/ML 10ML VIAL ONE (07:51)
[2018-12-14] MEDS: FUROSEMIDE 40 MG TABLET (FP) PO SCH (10:04)
[2018-12-14] MEDS: LACTULOSE 20 GM/30 ML UDC (FOR ORAL USE ONLY) PO SCH ×2 (10:04→21:36)
[2018-12-14] MEDS: GABAPENTIN 300 MG CAPSULE (FP) PO SCH ×2 (10:04→21:34)
[2018-12-14] MEDS: PRENATAL VITAMINS W/ FOLIC ACID TABLET (FP) PO SCH (10:04)
[2018-12-14] MEDS: levETIRAcetam 500 MG TABLET (FP) PO SCH ×2 (10:04→21:34)
[2018-12-14] MEDS: ASPIRIN 81 MG CHEWABLE TABLETS PO SCH (10:04)
[2018-12-14] MEDS: RIFAXIMIN 550 MG TABLET (UD) PO SCH ×2 (10:04→21:37)
--- NOTE | 2018-12-14 16:03 | PN ---
S Progress Note Note: AMMONIA LEVEL 83.60. LACTULOSE INCREASED TO 20GM TID. PATIENT ASYMPTOMATIC. CONTINUE TO MONITOR CLINICALLY. Laboratory Tests 12/11/18 12/12/18 12/12/18 15:42 06:31 11:54 POC Glucometer 105 75 80 Ammonia 12/12/18 12/13/18 12/13/18 21:47 06:24 07:35 POC Glucometer 106 84 Ammonia 46.99 H 12/13/18 12/13/18 12/14/18 11:59 17:09 06:08 POC Glucometer 79 94 66 Ammonia 12/14/18 12/14/18 11:30 11:47 POC Glucometer 131 Ammonia 83.60 H
[2018-12-14] MEDS ORDERED: PT OWN MED DRAWER 7, Y5N ONE (19:42)
[2018-12-14] MEDS: THIAMINE HCL 100 MG TABLET (FP) PO SCH (21:34)
[2018-12-14] MEDS: ATORVASTATIN CA 20 MG TABLET (FP) PO SCH (21:34)
[2018-12-15] MEDS: METHADONE HCL 40 MG DISPERSABLE TABLET PO SCH (06:21)
[2018-12-15] MEDS: LACTULOSE 20 GM/30 ML UDC (FOR ORAL USE ONLY) PO SCH (06:21)
[2018-12-15] MEDS: NICOTINE POLACRILEX 4 MG GUM BUC PRN (06:21)
[2018-12-15] MEDS: INSULIN (NOVOLOG) ASPART 100 UNITS/ML 10ML VIAL SQ SCH (06:23)
[2018-12-15 06:57] VITALS: TEMP 98.5
[2018-12-15] MEDS: PRENATAL VITAMINS W/ FOLIC ACID TABLET (FP) PO SCH (09:16)
[2018-12-15] MEDS: FUROSEMIDE 40 MG TABLET (FP) PO SCH (09:17)
[2018-12-15] MEDS: levETIRAcetam 500 MG TABLET (FP) PO SCH (09:17)
[2018-12-15] MEDS: RIFAXIMIN 550 MG TABLET (UD) PO SCH (09:17)
[2018-12-15] MEDS: ASPIRIN 81 MG CHEWABLE TABLETS PO SCH (09:17)
[2018-12-15] MEDS: GABAPENTIN 300 MG CAPSULE (FP) PO SCH (09:18)
[2018-12-15 09:21] VITALS: BP 143/83; PULSE 90
--- NOTE | 2018-12-15 09:53 | PN ---
[facility] Progress Note Note: REHAB DISCHARGE NOTE: PATIENT REQUESTED EARLY DISCHARGE FROM REHAB. STATES SHE HAS ACCOMPLISHED ALL REHAB GOALS BUT WOULD LIKE TO GO HOME TO HER FAMILY. PATIENT ENCOURAGED TO STAY IN REHAB TREATMENT BUT REFUSED. PATIENT CURRENTLY BEING TREATED FOR ELEVATED AMMONIA LEVELS DUE TO HER H/O LIVER CIRRHOSIS AND UNTREATED HEP C. PATIENT IS ALERT AND ORIENTED X 3, NO LETHARGY OR CONFUSION NOTED. PATIENT PREFERS TO FOLLOW UP WITH PCP FOR CONTINUED MEDICAL MANAGEMENT. PATIENT HAS APPT WITH NEUROLOGIST DR. CASSIDY ON 12/19/18 AND PCP Mel MICHAEL AT [address] [place] [address] ON 12/19/18 AT 3:30PM. PATIENT STRONGLY ADVISED TO SEEK MEDICAL ATTENTION/ CALL 911 IF LETHARGY AND CHANGE IN MENTAL STATUS OCCURS. PATIENT DENIES SI/HI. NO SEIZURES REPORTED IN LAST 2 DAYS WHILE IN REHAB. PATIENT TO FOLLOW UP WITH [facility] TOMORROW MORNING AT [facility]. MEDICAL PRESCRIPTIONS SENT TO PREFERRED PHARMACY. Vital Signs Temperature 98.5 F 12/15/18 06:56 Pulse Rate 90 12/15/18 09:15 Respiratory Rate 18 12/15/18 06:56 Blood Pressure 143/83 12/15/18 09:15 O2 Sat by Pulse Oximetry (%)
== END 2018-12-15 09:41 | disposition home or self-care (01) | DRG 772 ==
LOC: YASAS 12:15 → Y3E 16:33
PROVIDERS: ADMIT Neuromusculoskeletal Medicine & OMM; ATTEND Neuromusculoskeletal Medicine & OMM
PROC: HZ42ZZZ Group Counseling for Substance Abuse Treatment, Cognitive-Behavioral (ICD-10-PCS; principal; 2018-12-11)
DX: F10.20 Alcohol dependence, uncomplicated (principal); F14.20 Cocaine dependence, uncomplicated; F13.20 Sedative, hypnotic or anxiolytic dependence, uncomplicated; F11.20 Opioid dependence, uncomplicated; F17.210 Nicotine dependence, cigarettes, uncomplicated; F31.9 Bipolar disorder, unspecified; F43.10 Post-traumatic stress disorder, unspecified; J45.20 Mild intermittent asthma, uncomplicated; I25.10 Atherosclerotic heart disease of native coronary artery without angina pectoris; I10 Essential (primary) hypertension; E72.20 Disorder of urea cycle metabolism, unspecified; D69.6 Thrombocytopenia, unspecified; G40.409 Other generalized epilepsy and epileptic syndromes, not intractable, without status epilepticus; M54.5 Low back pain; G89.29 Other chronic pain; I69.892 Facial weakness following other cerebrovascular disease; Z13.1 Encounter for screening for diabetes mellitus; R26.89 Other abnormalities of gait and mobility; Z99.89 Dependence on other enabling machines and devices
CPT/HCPCS: 82140; 82962

== ENCOUNTER 2019-01-15 12:47 | Emergency (ER) | payer OTHER ==
[2019-01-15 12:56] VITALS: TEMP 98.8; BMI 34.3
[2019-01-15 14:20] LABS: BASO % 0.4 % (0-2.0); EOS % 4.8 % (0-4.5); HEMATOCRIT 31.4 % (32.4-45.2); LYMPH % 24.2 % (8-40); MCH 30.5 pg (25.7-33.7); MCHC 35.1 g/dl (32.0-36.0); MEAN PLT VOLUME 11.3 fl (7.5-11.1); MONO % 13.1 % (3.8-10.2); NEUT % 57.5 % (42.8-82.8); PLATELET COUNT 37 K/MM3 (134-434); RBC 3.61 M/mm3 (3.60-5.2); RDW 14.5 % (11.6-15.6); WHITE BLOOD COUNT 4.7 K/mm3 (4.0-10.0)
[2019-01-15 14:33] LABS: INR 1.39 (0.83-1.09); PROTHROMBIN TIME (PATIENT) 16.5 SEC (9.7-13.0)
--- NOTE | 2019-01-15 14:35 | PDOC ---
History of Present Illness - General Chief Complaint: Vaginal Bleeding Stated Complaint: VAGINAL BLEED Time Seen by Provider: 01/15/19 13:39 History Source: Patient Exam Limitations: No Limitations - History of Present Illness Travel History: No Initial Comments: 01/15/19 14:03 58-year-old female with history of polysubstance abuse, bipolar, seizure, splenomegaly, and cirrhosis presents to ED with complaints of left upper quadrant pain for the past 4 days which she describes as an aching discomfort without aggravating or alleviating factors. Patient also complaining of vaginal bleeding since yesterday and states her menses is not due until the end of the month which comes every 28 days Timing/Duration: reports: constant Quality: reports: moderate, aching Abdominal Pain Onset Location: reports: LUQ Pain Radiation: reports: flank Activities at Onset: reports: none Aggravating Factors: improves with: None Alleviating Factors: improves with: None Past History - Travel Traveled outside of the country in the last 30 days: No Close contact w/someone who was outside of country & ill: No - Past Medical History Allergies/Adverse Reactions: Allergies Allergy/AdvReac Type Severity Reaction Status Date / Time haloperidol [From Haldol] AdvReac Severe stiffness Verified 01/15/19 12:53 Home Medications: Ambulatory Orders Aspirin 81 mg PO DAILY 05/15/13 Insulin Regular, Human [Humulin R -] 8 units SQ DAILY 05/15/13 Methadone [Dolophine -] 80 mg PO DAILY 11/30/18 Spironolactone 50 mg PO DAILY 11/30/18 Atorvastatin Ca [Lipitor] 20 mg PO HS #0 tablet 12/11/18 Folic Acid - 1 mg PO DAILY #0 tablet 12/11/18 levETIRAcetam [Keppra -] 1,000 mg PO BID #0 tablet 12/11/18 Furosemide [Lasix] 40 mg PO DAILY 14 Days #14 tablet 12/15/18 Gabapentin 300 mg PO BID #60 capsule 12/15/18 Rifaximin [Xifaxan] 550 mg PO BID #14 tablet 12/15/18 Lactulose (Oral Use) [Cephulac -] 20 gm PO TID 01/15/19 Asthma: Yes Cardiac Disorders: No CVA: Yes COPD: No Diabetes: Yes GI Disorders: No Disorders: No HTN: No Kidney Stones: No Liver Disease: Yes (Hx Hep C) Seizures: Yes (r/t head trauma as a child-last episode was in 12/05/2018 while in rehab (3E)) Other medical history: ENLARGED SPLEEN - Surgical History Abdominal Surgery: No Appendectomy: No Cardiac Surgery: No Cholecystectomy: No Lung Surgery: No Neurologic Surgery: No Orthopedic Surgery: No - Reproductive History PID: No - Immunization History Immunization Up to Date: Yes - Suicide/Smoking/Psychosocial Hx Smoking History: Never smoked Have you smoked in the past 12 months: Yes Number of Cigarettes Smoked Daily: 20 'Breaking Loose' booklet given: 12/05/18 Hx Alcohol Use: No Drug/Substance Use Hx: No Substance Use Type: None Hx Substance Use Treatment: Yes Patient Lives Alone: No Lives with/in: spouse/SO Abd/GI Specific PMHX - Complaint Specific PMHX Hepatitis: No Pancreatitis: No Review of Systems - Review of Systems Able to Perform ROS?: No Is the patient limited Lao proficient: No Constitutional: No: Symptoms Reported HEENTM: No: Symptoms Reported Respiratory: No: Symptoms reported Cardiac (ROS): No: Symptoms Reported ABD/GI: Yes: Abdominal cramping. No: Blood Streaked Bowels, Constipated, Diarrhea, Nausea, Poor Appetite, Poor Fluid Intake, Vomiting : Yes: Discharge (vag bleeding) Musculoskeletal: No: Symptoms Reported Integumentary: No: Symptoms Reported Neurological: No: Symptoms reported *Physical Exam - Vital Signs Last Vital Signs Temp Pulse Resp BP Pulse Ox 98.8 F 77 17 120/68 96 01/15/19 12:53 01/15/19 12:53 01/15/19 12:53 01/15/19 12:53 01/15/19 12:53 - Physical Exam General Appearance: Yes: Nourished, Appropriately Dressed. No: Apparent Distress HEENT: positive: EOMI, SOL. negative: Pale Conjunctivae Neck: positive: Normal Thyroid, Supple Respiratory/Chest: positive: Lungs Clear, Normal Breath Sounds. negative: Respiratory Distress, Accessory Muscle Use Cardiovascular: positive: Regular Rhythm, Regular Rate. negative: Murmur Female Pelvic Exam: positive: vaginal bleeding (mod amount of BRB in vault. no clots. pelvic deferred) Gastrointestinal/Abdominal: positive: Soft, Tenderness (luq tenderness) Extremity: positive: Normal Capillary Refill. negative: Pedal Edema Integumentary: positive: Normal Color, Warm, Moist Neurologic: positive: Motor Strength 5/5 (ambulatory) Moderate Sedation - Procedure Monitoring Vital Signs: Procedure Monitoring Vital Signs Temperature 98.8 F 01/15/19 12:53 Pulse Rate 77 01/15/19 12:53 Respiratory Rate 17 01/15/19 12:53 Blood Pressure 120/68 01/15/19 12:53 O2 Sat by Pulse Oximetry (%) 96 01/15/19 12:53 ED Treatment Course - LABORATORY CBC & Chemistry Diagram: 01/15/19 14:00 01/15/19 13:58 - ADDITIONAL ORDERS Additional order review: 01/15/19 14:00 RBC 3.61 MCV 87.0 MCHC 35.1 RDW 14.5 MPV 11.3 H Neutrophils % 57.5 Lymphocytes % 24.2 Monocytes % 13.1 H Eosinophils % 4.8 H Basophils % 0.4 - RADIOLOGY Radiology Studies Ordered: Category Date Time Status ABDOMEN & PELVIS CT WITH CONTR [CT] Stat CT Scan 01/15/19 13:44 Ordered FOLLOW-UP US [US] Stat Ultrasound 01/15/19 13:42 Ordered TRANSVAGINAL ULTRASOUND US [US] Stat Ultrasound 01/15/19 13:42 Ordered Medical Decision Making - Medical Decision Making 01/15/19 14:18 chief complaint: Left upper quadrant pain and vaginal bleeding. Patient with history of splenomegaly and cirrhosis. Exam. Patient with left upper quadrant tenderness and bright red blood noted in vaginal vault. Plan. Labs, urine and urine and ultrasound ordered. Patient also ordered for abdominal CT to evaluate left upper quadrant pain 01/15/19 15:40 Laboratory Tests 01/15/19 01/15/19 01/15/19 13:58 13:58 13:58 WBC Hgb Hct Plt Count MPV Neutrophils % Monocytes % Eosinophils % PT with INR 16.50 H INR 1.39 H Sodium 136 Potassium 4.6 Chloride 103 Carbon Dioxide 27 Anion Gap 6 L BUN 16 Creatinine 0.8 Creat Clearance w eGFR 74.20 Random Glucose 129 H Calcium 8.3 L Total Bilirubin 0.7 AST 34 ALT 26 Alkaline Phosphatase 65 Total Protein 6.5 Albumin 3.0 L Urine Blood 3+ H Urine Urobilinogen 4.0 e.u/dl H Ur Leukocyte Esterase Negative Urine WBC (Auto) <1 Urine RBC (Auto) 38 Urine HCG, Qual Negative 01/15/19 14:00 WBC 4.7 Hgb 11.0 Hct 31.4 L D Plt Count 37 L MPV 11.3 H Neutrophils % 57.5 Monocytes % 13.1 H Eosinophils % 4.8 H PT with INR INR Sodium Potassium Chloride Carbon Dioxide Anion Gap BUN Creatinine Creat Clearance w eGFR Random Glucose Calcium Total Bilirubin AST ALT Alkaline Phosphatase Total Protein Albumin Urine Blood Urine Urobilinogen Ur Leukocyte Esterase Urine WBC (Auto) Urine RBC (Auto) Urine HCG, Qual Pt's u/s shows no abnormal findings. Awaiting Abd CT. Laboratory Tests 12/10/18 12/11/18 07:15 08:15 Plt Count 30 L* 36 L* 01/15/19 18:[address] shows no interval change. No change in splenic size (16.5 cm). Stable hernia and varices. *DC/Admit/Observation/Transfer Diagnosis at time of Disposition: Abdominal pain - Discharge Dispostion Disposition: HOME Condition at time of disposition: Improved - Referrals - Patient Instructions Printed Discharge Instructions: DI for Abdominal Pain-Adult Additional Instructions: Please take medication as prescribed previously. Follow up with your doctor as needed. Return to the ED if symptoms worsen. - Post Discharge Activity
[2019-01-15 14:37] LABS: ALK PHOS 65 U/L (45-117); ANION GAP 6 MMOL/L (8-16); BILIRUBIN,TOTAL 0.7 mg/dL (0.2-1); BLOOD UREA NITROGEN 16 mg/dL (7-18); CALCIUM 8.3 mg/dL (8.5-10.1); CHLORIDE 103 mmol/L (98-107); CO2 27 mmol/L (21-32); CREATININE 0.8 mg/dL (0.55-1.3); GLUCOSE,RANDOM 129 mg/dL (74-106); POTASSIUM 4.6 mmol/L (3.5-5.1); SGOT/AST 34 U/L (15-37); SGPT/ALT 26 U/L (13-61); SODIUM 136 mmol/L (136-145); TOT PROT 6.5 g/dl (6.4-8.2)
[2019-01-15 14:47] LABS: URINE APPEARANCE CLEAR; URINE BILIRUBIN NEGATIVE (<2.0 mg/dL); URINE COLOR YELLOW; URINE GLUCOSE (UA) NEGATIVE (NEGATIVE); URINE KETONE NEGATIVE (NEGATIVE); URINE LEUK ESTERASE NEGATIVE (NEGATIVE); URINE NITRITE NEGATIVE (NEGATIVE); URINE PROTEIN NEGATIVE (NEGATIVE); URINE UROBILINOGEN 4.0 E.U/dl mg/dL (0.2-1.0)
[2019-01-15 14:49] LABS: EPI CELLS RARE /HPF (FEW); HCG,QUALITATIVE URINE Negative; URINE HYALINE CAST 1 /lpf
[2019-01-15] MEDS ORDERED: morphine CARPU-JECT 2 MG/1 ML DISP.SYRIN IVPUSH ONE (17:56)
[2019-01-15] MEDS ORDERED: morphine SULFATE 4 MG/ML VIAL ONE (18:33)
[2019-01-15 18:49] VITALS: BP 115/72; PULSE 69
== END 2019-01-15 19:05 | disposition home or self-care (01) ==
LOC: JER 12:47
PROC: 3E033NZ Introduction of Analgesics, Hypnotics, Sedatives into Peripheral Vein, Percutaneous Approach (ICD-10-PCS; principal; 2019-01-15)
DX: R10.84 Generalized abdominal pain (principal); N93.8 Other specified abnormal uterine and vaginal bleeding; J45.909 Unspecified asthma, uncomplicated; E11.9 Type 2 diabetes mellitus without complications; Z79.4 Long term (current) use of insulin; K74.60 Unspecified cirrhosis of liver; R56.1 Post traumatic seizures; Z87.820 Personal history of traumatic brain injury; Z86.19 Personal history of other infectious and parasitic diseases; Z86.73 Personal history of transient ischemic attack (TIA), and cerebral infarction without residual deficits; F19.10 Other psychoactive substance abuse, uncomplicated; F31.9 Bipolar disorder, unspecified; R16.1 Splenomegaly, not elsewhere classified
CPT/HCPCS: 36415; 74177-TC; 76830-TC; 76856-TC; 80053; 81003; 81015; 84703; 85025; 85610; 87086; 96374; 99283-25